=== PATIENT | male | born 1955 | race Two or more races ===

== ENCOUNTER 2022-12-19 06:30 | Inpatient (IN) | payer OTHER, MEDICAID ==
[2022-12-19] VITALS (16 sets, daily range): BP systolic 62–197; BP diastolic 40–136
[~2022-12-19] VITALS: Ht 167.6 cm; Wt 89.8 kg
--- NOTE | 2022-12-19 06:30 | NUR ---
[facility]IB[facility] FROM [facility] WITH [facility]/O ALOC, PT WAS FOUND UNRESPONSIVE, WITH LOW BP AND LABORED RESPIRATIONS. PT WITH H/O SEIZURES, NO SZ ACTIVITY WAS NOTED PMH : DOWNS SYNDROME, SEIZURES
--- NOTE | 2022-12-19 06:30 | NUR ---
PT MEE ALS. TAKEN TO BED 6
--- NOTE | 2022-12-19 06:32 | NUR ---
Dr. Prabhakar examining patient.
--- NOTE | 2022-12-19 06:36 | NUR ---
Respiratory Therapist at bedside for respiratory intervention.
--- NOTE | 2022-12-19 07:05 | NUR ---
PT TAKEN TO RADIOLOGY
--- NOTE | 2022-12-19 07:13 | NUR ---
PT RETURN FROM RADIOLOGY
--- NOTE | 2022-12-19 07:22 | NUR ---
Report and continuation of care received from KENDAL Travis.
--- NOTE | 2022-12-19 07:24 | NUR ---
67 y/o M BIBA from [facility] for ALOC. Staff noted patient hypoxic, hypotensive and unresponsive. Pt presents GCS 8, non-verbal baseline, G-tube and diapered. site monitor in place. Seizure precautions in place. PMH: down syndrome, hypothyroidism, seizure, COPD, arthritis, anemia Meds: albuterol, keppra, levothyroxine, lexapro, ativan PRN, quetiapine NKDA
--- NOTE | 2022-12-19 07:24 | NUR ---
Lab at bedside for blood draw attempt
--- NOTE | 2022-12-19 08:10 | NUR ---
SPO2 DROPPED TO 85%, PT PLACED ON 15NR. RT CALLED FOR ASSISTANCE. PT HYPOTENSIVE 65/38. DR PIZARRO AWARE AND AT BEDSIDE
[2022-12-19] MEDS ORDERED: levETIRAcetam 1,500 MG in NACL 0.9% 100 ML IV ONE (08:15)
[2022-12-19 08:18] LABS: HEMATOCRIT 30.4 % (36-52); MEAN CORPUSCULAR HEMOGLOBIN 35 pg (27-31); MEAN CORPUSCULAR HGB CONC 33 g/dL (33-37); MEAN CORPUSCULAR VOLUME 108.2 fL (80-94); PLATELET COUNT (AUTO) 230 K/uL (140-450); RED BLOOD CELL COUNT(AUTO) 2.81 MIL/uL (4.20-6.10); RED CELL DISTRIBUTION WIDTH 16.8 % (11.6-13.7); WHITE BLOOD COUNT (AUTO) 14.7 K/uL (4.8-10.8)
[2022-12-19] MEDS ORDERED: NACL 0.9% 2,000 ML IV ONE (08:30)
[2022-12-19] MEDS ORDERED: cefTRIAXone 2,000 MG in DEXTROSE 5% 100 ML IV ONE (08:30)
[2022-12-19] MEDS ORDERED: NOREPINEPHRINE 4 MG/4 ML VIAL IV ONE (08:30)
[2022-12-19] MEDS ORDERED: NOREPINEPHRINE 4 MG in DEXTROSE 5% 250 ML IV ONE (08:35)
--- NOTE | 2022-12-19 08:36 | NUR ---
RT at bedside
--- NOTE | 2022-12-19 08:40 | NUR ---
Unable to start Rocephin 2G; Levophed infusing w/ no central line placement in place
--- NOTE | 2022-12-19 08:43 | NUR ---
Imelda velasco in ED - 12/19/22 at 0845 by LETITIA PATIENT MOVED FROM BED 06 TO BED 05 AND PLACED ONTO SHOCK ABSORPTION FLOOR LAYER. REMAINS ON HUMIFIED HI-FLOW. SPO2 98%.
--- NOTE | 2022-12-19 08:43 | NUR ---
Imelda velasco in ED - 12/19/22 at 0941 by LETITIA PATIENT MOVED FROM BED 07 TO BED 05 AND PLACED ONTO TRANSPORTATION TECHNICIAN. REMAINS ON HUMIFIED HI-FLOW. SPO2 98%.
--- NOTE | 2022-12-19 08:43 | NUR ---
PATIENT MOVED FROM BED 06 TO BED 05 AND PLACED ONTO FRONT DESK MANAGER. REMAINS ON 9L HUMIDIFIED HI-FLOW. SPO2 98%.
[2022-12-19] MEDS ORDERED: ROCURONIUM 50 MG/5 ML VIAL IV ONE ×2 (08:45→12:00)
[2022-12-19] MEDS ORDERED: ETOMIDATE 20 MG/10 ML VIAL IVP ONE ×2 (08:45→12:00)
[2022-12-19 08:46] LABS: ALBUMIN 3.2 g/dL (3.4-5.0); ANION GAP 16.5 (8-16); ASPARTATE AMINOTRANSFERASE 34 U/L (15-37); CHLORIDE 98 mmol/L (98-107); CREATININE 2.2 mg/dL (0.6-1.3); GFR ARICAN-AMERICAN 38 mL/min (>90); GLUCOSE 91 mg/dL (74-106); POTASSIUM 4.5 mmol/L (3.5-5.1); SODIUM SERUM 136 mmol/L (136-145); TOTAL BILIRUBIN 0.6 mg/dL (0.0-1.0); UREA NITROGEN, BLOOD 37 mg/dL (7-18)
--- NOTE | 2022-12-19 08:46 | NUR ---
Imelda velasco in [facility] - 12/19/[address] Prabhakar at bedside for central line placement
[2022-12-19 08:47] LABS: SALICYLATE < 2.8 mg/dL (2.8-20.0)
--- NOTE | 2022-12-19 08:57 | NUR ---
Leann lawrence collected handed to Carol Ann, CPT.
[2022-12-19 08:59] LABS: LYMPHOCYTES % (MANUAL) 5 % (20-46); MONOCYTES % (MANUAL) 9 % (5-12)
--- NOTE | 2022-12-19 09:05 | NUR ---
ermd stated to increase dosage of levo until diastolic is increased to high 30-40s. map 65 at this time with diastolic 28.
--- NOTE | 2022-12-19 09:17 | NUR ---
# 16 FR Townsend catheter with 10 ml utilizing sterile technique. Immediate return of 700 ml clear/yellow urine noted. Bedside drainage bag placed below level of bladder. Urine sample collected and sent to lab. Pt tolerated procedure well.
[2022-12-19 09:18] LABS: ACETAMINOPHEN < 0.5 ug/ml (10-30)
--- NOTE | 2022-12-19 09:19 | NUR ---
Urine sample walked to lab handed to CPT Td. Log book filled.
[2022-12-19 09:44] LABS: APPEARANCE,URINE CLEAR (CLEAR); BILIRUBIN,URINE NEGATIVE (NEGATIVE); BLOOD, URINE NEGATIVE (NEGATIVE); COLOR,URINE YELLOW (YELLOW); LEUKOCYTE ESTERASE ,URINE NEGATIVE (NEGATIVE); NITRITE, URINE NEGATIVE (NEGATIVE); UGLUCOSE NEGATIVE (NEGATIVE)
[2022-12-19] MEDS ORDERED: INTUBATION KIT MC ONE (09:45)
[2022-12-19] MEDS ORDERED: MIDAZOLAM MDV 50 MG in NACL 0.9% 40 ML IV PRN ×2 (09:50→15:50)
--- NOTE | 2022-12-19 10:12 | NUR ---
RT at bedside
--- NOTE | 2022-12-19 10:15 | NUR ---
Sergio MAGUIRE RCP AND Marcelo WILCOX CALLED TO BEDSIDE; PREPPED PATIENT FOR INTUBATION
--- NOTE | 2022-12-19 10:15 | NUR ---
DR PIZARRO, RT AND PRIMARY NURSE AT BEDSIDE FOR INTUBATION
--- NOTE | 2022-12-19 10:20 | NUR ---
Dr. Prabhakar at bedside for intubation
--- NOTE | 2022-12-19 10:22 | NUR ---
USING A GLIDESCOPE PATIENT SUCCESSFULLY INTUBATED BY DR. PERI GARCIA WITH AN ENDOTRACHEAL TUBE #7.5 SECURED AT 23cm TEETH/GUM LINE WITH ANCHOR FAST CONFIRMATION VIA ETCO2 DETECTOR-COLOR CHANGE YELLOW AUSCULTATION TO ABDOMINAL REGION AND BILATERAL LUNG NICHOLS GOOD AERATION GOOD CHEST RISE CXR TO FOLLOW
[2022-12-19 10:24] LABS: BARBITURATE, URINE NEGATIVE ng/ml (NEG <=200)
--- NOTE | 2022-12-19 10:24 | NUR ---
RT and ERMD at bedside for intubation. 22 @ the lip. X-ray paged.
[2022-12-19 10:25] LABS: BENZODIAZEPINE, URINE POSITIVE ng/mL (NEG <=200); CANNABINOID, URINE NEGATIVE ng/mL (NEG <=50); COCAINE, URINE NEGATIVE ng/mL (NEG <=300); PHENCYCLIDINE SCREEN,URINE NEGATIVE ng/mL (NEG <=25)
[2022-12-19 10:26] LABS: OPIATE, URINE NEGATIVE ng/mL (NEG <=2000)
--- NOTE | 2022-12-19 10:27 | NUR ---
RAD at bedside for tube placement
--- NOTE | 2022-12-19 10:30 | NUR ---
CHEST XRAY TO ENDOTRACHEAL TUBE (ETT) PLACEMENT; -2.1 RIGHT MAINSTEM; REVIEWED BY DR. PADDY PIZARRO; ETT RETRACTION 5cm TO 18cm
--- NOTE | 2022-12-19 10:35 | NUR ---
CHEST XRAY FOR ENDOTRACHEAL TUBE PLACEMENT AT 18cm; +2.8cm ABOVE TAN; REVIEWED BY DR. PADDY PIZARRO
--- NOTE | 2022-12-19 10:35 | NUR ---
OG tube in placed; RAD called for xray
[2022-12-19] MEDS ORDERED: KEP500L GT (11:00)
[2022-12-19] MEDS ORDERED: ESCI20TA49 GT (11:00)
[2022-12-19] MEDS ORDERED: LEVO0.087 PEG (11:00)
[2022-12-19] MEDS ORDERED: ATI.5 GT (11:00)
[2022-12-19] MEDS ORDERED: ALBU2.5V NEB (11:00)
[2022-12-19] MEDS ORDERED: QUET300T26 GT (11:00)
--- NOTE | 2022-12-19 11:32 | NUR ---
LAB UNSUCCESSFUL ATTEMPT AT BLOOD DRAW, WILL HAVE ANOTHER CPT ATTEMPT
[2022-12-19] MEDS ORDERED: POTASSIUM CHLORIDE 10 MEQ TABER PO PRN (11:40)
[2022-12-19] MEDS ORDERED: HYDROcodone/APAP 7.5/325 MG 1 TAB PO PRN (11:40)
[2022-12-19] MEDS ORDERED: ACETAMINOPHEN 325 MG TAB PO PRN (11:40)
[2022-12-19] MEDS ORDERED: ONDANSETRON 4 MG/2 ML VIAL IVP PRN (11:40)
[2022-12-19] MEDS ORDERED: LORazepam 0.5 MG TAB GT PRN (11:40)
[2022-12-19] MEDS ORDERED: VANCOMYCIN PER PHARMACY MC PRN (11:45)
--- NOTE | 2022-12-19 11:46 | NUR ---
Lab called for blood draw. Td VAZQUEZ states will come now for draw
--- NOTE | 2022-12-19 11:52 | NUR ---
LAB AT BEDSIDE
--- NOTE | 2022-12-19 11:57 | NUR ---
Dr. Prabhakar at bedside for central line placement
[2022-12-19] MEDS ORDERED: VANCOMYCIN HCL 1.25 GM in DEXTROSE 5% 250 ML IV SCH (12:00)
--- NOTE | 2022-12-19 12:01 | NUR ---
700mL clear/yellow urine removed from Townsend catheter bag
[2022-12-19] MEDS ORDERED: cefTRIAXone 2,000 MG VIAL ONE (12:05)
[2022-12-19] MEDS ORDERED: CLINICAL MONITORING MC SCH (12:10)
[2022-12-19] MEDS: NACL 0.9% 1,000 ML IV SCH ×2 (12:31→21:40)
--- NOTE | 2022-12-19 13:00 | NUR ---
Patient will be admitted to care of Dr. De La Torre. Admited to ICU. Will go to room ICU-5. Belongings list completed. Report to KENDAL Aburto.
--- NOTE | 2022-12-19 13:00 | NUR ---
RECEIVED BEDSIDE REPORT FROM DUKE VALERIO RN, FOR CONTINUITY OF CARE. PT A/OX0, SEDATED ON VERSED. ETT TO VENT. JUNCTIONAL RHYTHM ON MONITOR. TLC TO RIJ INFUSING LEVOPHED AT 30 MCG/MIN, NS AT 100 ML/HR, AND VERSED AT 1 MG/HR. 20G IV TO RAC SALINE LOCKED AND 20G IV TO R HAND SALINE LOCK. G TUBE IN PLACE, CLAMPED. OGT IN PLACE, CLAMPED. F/C TO GRAVITY DRAINING CLEAR YELLOW URINE. SKIN INTACT. GENERALIZED WEAKNESS. STANDARD PRECAUTION. BED LOCKED AND IN LOWEST POSITION. HOB 30 DEGREES. Addendum: 12/19/22 at 1825 by Criselda Martinez RN A FIB ON MONITOR
[2022-12-19 13:14] LABS: PROTHROMBIN TIME 10.7 secs (10.8-13.4)
[2022-12-19] MEDS: NOREPINEPHRINE 16 MG in DEXTROSE 5% 250 ML IV PRN (13:30)
[2022-12-19] MEDS: VASOPRESSIN 20 UNITS in NACL 0.9% 250 ML IV SCH (14:00)
[2022-12-19] MEDS: PIPERACILLIN/TAZOBACTAM 3.375 GM in DEXTROSE 5% 50 ML IV SCH ×2 (14:27→20:59)
[2022-12-19 14:28] LABS: CHOL/HDL RATIO 1.9 (1-4.5); FREE T4 (FREE THYROXINE) 0.56 ng/dL (0.76-1.46); MAGNESIUM 1.7 mg/dL (1.8-2.4); THYROID STIMULATING HORMONE 13.4 uIU/mL (0.34-3.74)
[2022-12-19] MEDS ORDERED: PHENYLEPHRINE 10 MG in NACL 0.9% 250 ML IV PRN (15:05)
[2022-12-19] MEDS ORDERED: PHENYLEPHRINE 40 MG in NACL 0.9% 250 ML IV PRN (15:10)
--- NOTE | 2022-12-19 16:30 | NUR ---
REMOVED OG TUBE PER MD ORDERS. PT TOLERATED WELL.
--- NOTE | 2022-12-19 16:50 | NUR ---
PATIENT HAS BEEN SCREENED AND CATEGORIZED HIGH NUTRITION RISK. PATIENT WILL BE SEEN WITHIN 1-2 DAYS OF ADMISSION. REVIEWED BY WILLIAM HARRISON RD
[2022-12-19] MEDS: MIDAZOLAM MDV 50 MG in NACL 0.9% 40 ML IV PRN (19:05)
--- NOTE | 2022-12-19 19:20 | NUR ---
RECEIVED REPORT FROM SUZI EDMONDS FOR CONTINUITY OF CARE FOR THIS PT. PT IS LYING SUPINE WITH HIS EYES CLOSED. HIS MOUTH IS OPEN.HE'S INTUBATED AND IS ON A MECHANICAL VENTILATOR WITH SETTING AC/VC FIO2 60%, TV 400, RATE 16 AND PEEP 5. HE'S TOLERATING THE SETTINGS WELL. HE'S VERY PALE IN COLOR. HE'S AFEBRILE. HIS LACTIC ACID REMAINS ELEVATED OF 1600 TODAY IT'S 6.8. HE HAS SPECIMENS PENDING TO DETERMINE CAUSE OF HIS INFECTION. HE IS REPORTED HYPOTENSIVE AND IS ON LEVOPHED MAXED OUR AT 30MCG/MIN AND VASOPRESSIN IUNIT/MIN. HIS BLOOD PRESSURE IS WNL AT THIS TIME. HE 'S ALSO RECEIVING VERSED AT 6MG/HOUR FOR SEDATION. HE'S EASILY AROUSED. HE'S NPO AT THIS TIME.BUT, JE HAS A PEG TUBE IN PLACE. [facility] COLOR[facility].
--- NOTE | 2022-12-19 19:27 | NUR ---
ENDORSED BEDSIDE REPORT TO SHAHAB ELECTRONICS WORKER CLEANER AND PREPARER, FOR CONTINUITY OF CARE. VSS.
[2022-12-19] MEDS: DOCUSATE 100 MG/10 ML UDC GT SCH (20:59)
[2022-12-19] MEDS: levETIRAcetam 100 MG/ML ORASYR GT SCH (21:00)
--- NOTE | 2022-12-19 21:00 | NUR ---
PT'S BLOOD PRESSURE DROPPED TO 80/42 AND THEN IT WOULDN'T REGISTER A BLOOD PRESSURE AT ALL . CHANGED CUFF AND THE PRESSURE CAME IN 120/65
[2022-12-20] VITALS (33 sets, daily range): BP systolic 80–154; BP diastolic 49–91
--- NOTE | 2022-12-20 | NUR ---
PT FIO2 IS DOWN TO 45%.
[2022-12-20] MEDS: NOREPINEPHRINE 16 MG in DEXTROSE 5% 250 ML IV PRN ×3 (00:54→17:50)
[2022-12-20] MEDS: MIDAZOLAM MDV 50 MG in NACL 0.9% 40 ML IV PRN ×2 (04:22→15:39)
[2022-12-20] MEDS: PIPERACILLIN/TAZOBACTAM 3.375 GM in DEXTROSE 5% 50 ML IV SCH ×3 (04:45→21:56)
[2022-12-20 05:53] LABS: BASOPHILS # (AUTO) 0.1 K/uL (0.00-0.22); BASOPHILS % (AUTO) 0.3 % (0.0-2.0); EOSINOPHILS % (AUTO) 0.1 % (0.0-4.0); HEMATOCRIT 30.2 % (36-52); HEMOGLOBIN 9.9 g/dL (12.0-18.0); LYMPHOCYTES # (AUTO) 1.5 K/uL (2.0-11.5); LYMPHOCYTES % (AUTO) 6.1 % (20.5-51.1); MEAN CORPUSCULAR HEMOGLOBIN 35 pg (27-31); MEAN CORPUSCULAR HGB CONC 33 g/dL (33-37); MEAN CORPUSCULAR VOLUME 106.2 fL (80-94); MONOCYTES # (AUTO) 1.1 K/uL (0.8-1.0); MONOCYTES % (AUTO) 4.5 % (1.7-9.3); NEUTROPHILS # (AUTO) 22.5 K/uL (1.8-7.7); PLATELET COUNT (AUTO) 201 K/uL (140-450); RED BLOOD CELL COUNT(AUTO) 2.85 MIL/uL (4.20-6.10)
[2022-12-20 05:55] LABS: ANION GAP 13.9 (8-16); CARBON DIOXIDE 23.5 mmol/L (21-32); CREATININE 1.8 mg/dL (0.6-1.3); POTASSIUM 4.4 mmol/L (3.5-5.1)
[2022-12-20 06:13] LABS: MAGNESIUM 1.6 mg/dL (1.8-2.4)
[2022-12-20 06:25] LABS: WHITE BLOOD COUNT (AUTO) 25.2 K/uL (4.8-10.8)
[2022-12-20] MEDS: LEVOTHYROXINE 0.088 MG TAB PEG SCH (06:30)
--- NOTE | 2022-12-20 06:33 | NUR ---
LAB REPORTED A CRITICAL WBC VALUE OF 25.2. TEXT MSG SENT TO DR. MCCRACKEN.
--- NOTE | 2022-12-20 07:00 | NUR ---
RECEIVED PT ON VC400,F16,+5, 40%. VENT WHEELS ARE LOCKED, PLUGGED INTO RED OUTLET, AMBUBAG AT BEDSIDE, ALARMS ARE SET AND AUDIBLE. EQUAL CHEST RISE, COARSE BILATERAL BREATH SOUNDS, SATURATION 95%. AFTER SUCTIONING 97%. WILL CONTINUE TO MONITOR.
--- NOTE | 2022-12-20 07:15 | NUR ---
RECEIVED BEDSIDE REPORT FROM FACULTY DEAN SHAHAB EDMONDS. PT SEDATED. ETT TO VENT. AC VC FIO2 40% VT 400 RATE 16 PEEP 5. A FIB ON MONITOR. CENTRAL LINE TO RT IJ, RUNNING LEVO @ 30MCG/MIN, VASO @ 0.04 UNIT/MIN, VERSED @ 6 MG/H, NS @ 100 MLS/HR. G TUBE IN PLACE AND CLAMPED. NPO EXCEPTS MEDS. ALVAREZ IN PLACE TO GRAVITY, URINE CLEAR AND ABHI. BILT SOFT WRIST RESTRAINTS IN PLACE, NO S/S OF INJURY. GENERALIZED WEAKNESS, BEDREST. SKIN INTACT. HOB ELEVATED, BED TO LOWEST POSITION, CALL LIGHT WITHIN REACH, WILL CONTINUE TO MONITOR.
[2022-12-20] MEDS: ESCITALOPRAM 20 MG TAB GT SCH (08:18)
[2022-12-20] MEDS: DOCUSATE 100 MG/10 ML UDC GT SCH ×2 (08:18→21:56)
[2022-12-20] MEDS: QUEtiapine FUMARATE 100 MG TAB GT SCH (08:20)
[2022-12-20] MEDS: levETIRAcetam 100 MG/ML ORASYR GT SCH ×2 (08:20→21:56)
[2022-12-20] MEDS: PANTOPRAZOLE 40 MG INJ VIAL IVP SCH (08:20)
[2022-12-20] MEDS ORDERED: QUETIAPINE FUMARATE GT/PO SCH (09:00)
--- NOTE | 2022-12-20 10:10 | NUR ---
DR MCCRACKEN ROUNDYADIRA AT BEDSIDE. UPDATED PT INFORMATION.
[2022-12-20] MEDS: NACL 0.9% 1,000 ML IV SCH ×2 (10:19→19:21)
--- NOTE | 2022-12-20 10:52 | NUR ---
DR ROXANN LEGGETT AT BEDSIDE. UPDATED PT INFORMATION.
[2022-12-20] MEDS ORDERED: VANCOMYCIN HCL 1.25 GM in DEXTROSE 5% 250 ML IV SCH (12:00)
[2022-12-20] MEDS: MAG SULF 2000 MG/WATER PREMIX 50 ML IV PRN (12:44)
--- NOTE | 2022-12-20 13:46 | NUR ---
12/20/22 RD INITIAL ASSESSMENT COMPLETED PLEASE REFER TO NUTRITION ASSESSMENT UNDER CARE ACTIVITY FOR ESTIMATED NUTRITIONAL NEEDS. 1. CONTINUE NPO, PER MD. 2. WHEN MEDICALLY APPROPRIATE, AND TUBE FEEDING BEGINS, RECOMMEND JEVITY 1.2 @65 ML/HR, FWF 100 ML Q4H, WILL PROVIDE 1872 KCALS, 86 G PROTEIN, MEETING 89% ESTIMATED CALORIE AND 96% PROTEIN NEEDS 3. MONITOR GI AND LAB VALUES. 4. RD TO FOLLOW-UP 2-3 DAYS, HIGH RISK REVIEWED BY WILLIAM HARRISON RD
--- NOTE | 2022-12-20 15:55 | NUR ---
RECEIVED PHONE CALL FROM SNF/JEAN. UPDATED PT INFORMATION.
--- NOTE | 2022-12-20 16:05 | NUR ---
DR MATHEWS ROUNDING AT BEDSIDE. UPDATED PT INFORMATION.
[2022-12-20] MEDS: VASOPRESSIN 20 UNITS in NACL 0.9% 250 ML IV SCH ×2 (17:52→18:06)
--- NOTE | 2022-12-20 19:14 | NUR ---
ENDORSED TO INSIDE TECHNICAL SALES REPRESENTATIVE ALEXIS RN FOR CONTINUITY OF CARE. ALL QUESTION ANSWERED.
[2022-12-21] VITALS (33 sets, daily range): BP systolic 77–166; BP diastolic 44–126
[2022-12-21] MEDS: MIDAZOLAM MDV 50 MG in NACL 0.9% 40 ML IV PRN ×2 (02:33→15:57)
[2022-12-21] MEDS: NACL 0.9% 1,000 ML IV SCH ×2 (03:40→20:00)
[2022-12-21 04:49] LABS: BASOPHILS # (AUTO) 0.1 K/uL (0.00-0.22); BASOPHILS % (AUTO) 0.4 % (0.0-2.0); EOSINOPHILS # (AUTO) 0.1 K/uL (0-0.4); EOSINOPHILS % (AUTO) 0.7 % (0.0-4.0); HEMATOCRIT 25.4 % (36-52); HEMOGLOBIN 8.5 g/dL (12.0-18.0); LYMPHOCYTES # (AUTO) 0.9 K/uL (2.0-11.5); MEAN CORPUSCULAR HEMOGLOBIN 35 pg (27-31); MEAN CORPUSCULAR HGB CONC 33 g/dL (33-37); MEAN CORPUSCULAR VOLUME 105.8 fL (80-94); MONOCYTES # (AUTO) 0.4 K/uL (0.8-1.0); MONOCYTES % (AUTO) 3.1 % (1.7-9.3); NEUTROPHILS # (AUTO) 12.4 K/uL (1.8-7.7); PLATELET COUNT (AUTO) 147 K/uL (140-450); RED CELL DISTRIBUTION WIDTH 16.9 % (11.6-13.7); WHITE BLOOD COUNT (AUTO) 13.9 K/uL (4.8-10.8)
[2022-12-21] MEDS: PIPERACILLIN/TAZOBACTAM 3.375 GM in DEXTROSE 5% 50 ML IV SCH ×3 (05:24→21:00)
[2022-12-21 06:30] LABS: MAGNESIUM 1.7 mg/dL (1.8-2.4); PHOSPHORUS 1.3 mg/dL (2.5-4.9)
[2022-12-21] MEDS: LEVOTHYROXINE 0.088 MG TAB PEG SCH (06:30)
[2022-12-21 06:50] LABS: ANION GAP 10.3 (8-16); CARBON DIOXIDE 25.4 mmol/L (21-32); POTASSIUM 3.7 mmol/L (3.5-5.1)
[2022-12-21 07:04] LABS: LYMPHOCYTES % (AUTO) 6.7 % (20.5-51.1); NEUTROPHILS % (AUTO) 89.1 % (42.2-75.2)
--- NOTE | 2022-12-21 07:15 | NUR ---
RECEIVED BEDSIDE REPORT FROM STONEWORK SUPERVISOR ALEXIS RN. PT SEDATED. ETT TO VENT. AC VC FIO2 28% VT 400 RATE 16 PEEP 5. SR ON MONITOR. CENTRAL LINE TO RT IJ, RUNNING LEVO @ 14 MCG/MIN, VASO @ 0.01 UNIT/MIN, VERSED @ 4 MG/H, NS @ 100 MLS/HR. G TUBE IN PLACE, RUNNIGN JEVITY @ 65 MLS/H, FWF 100 ML Q4H. ALVAREZ IN PLACE TO GRAVITY, URINE CLEAR AND YELLOW. BILT SOFT WRIST RESTRAINTS IN PLACE, NO S/S OF INJURY. GENERALIZED WEAKNESS, BEDREST. SKIN INTACT. HOB ELEVATED, BED TO LOWEST POSITION, CALL LIGHT WITHIN REACH, WILL CONTINUE TO MONITOR.
--- NOTE | 2022-12-21 07:21 | NUR ---
PT WAS STABLE OVERNIGHT. FIO2 REQUIREMENTS DOWN TO 28%. LEVO REQUIREMENTS IS 18 AND VASOPRESSIN IS 0.01 UNITS/HR. VERSED AT 4. NO SKIN BREAKDOWN NOTED. MODERATE SECRETIONS NOTED
[2022-12-21] MEDS: MAG SULF 2000 MG/WATER PREMIX 50 ML IV PRN (07:40)
[2022-12-21] MEDS: levETIRAcetam 100 MG/ML ORASYR GT SCH ×2 (08:31→21:00)
[2022-12-21] MEDS: ESCITALOPRAM 20 MG TAB GT SCH (08:31)
[2022-12-21] MEDS: DOCUSATE 100 MG/10 ML UDC GT SCH ×2 (08:31→21:00)
[2022-12-21] MEDS: QUEtiapine FUMARATE 100 MG TAB GT SCH (08:31)
[2022-12-21] MEDS: PANTOPRAZOLE 40 MG INJ VIAL IVP SCH (08:32)
[2022-12-21] MEDS ORDERED: CLINICAL MONITORING MC PRN (09:18)
--- NOTE | 2022-12-21 10:30 | NUR ---
DR MCCRACKEN ROUNDYADIRA AT BEDSIDE. UPDATED PT INFORMATION.
--- NOTE | 2022-12-21 10:30 | NUR ---
CXR FOR ENDOTRACHEAL TUBE PLACEMENT; -2.1 RIGHT MAINSTEM; REVIEWED BT DR. PADDY GARCIA; RETRACTED ETT 5 cm TO 18cm Addendum: 12/21/22 at 1730 by Ryan Stout RT WRONG DATE
[2022-12-21] MEDS ORDERED: POTASSIUM PHOSPHATE 15 MM in NACL 0.9% 250 ML IV ONE (10:35)
[2022-12-21] MEDS ORDERED: SODIUM PHOSPHATE 15 MMOLE in NACL 0.9% 250 ML IV SCH (11:30)
--- NOTE | 2022-12-21 12:10 | NUR ---
DR HACKETT ROUNDING AT BEDSIDE. UPDATED PT INFORMATION. DR HACKETT WANT TO FIND OUT FAMILY FOR DECISION MAKER. SOCIAL SERVICE REQUEST FOR SERVICE ORDER IN.
[2022-12-21] MEDS ORDERED: HYDROCORTISONE NA SUCC 100 MG/2 ML VIAL IV SCH (12:42)
[2022-12-21] MEDS: VANCOMYCIN HCL 1.25 GM in DEXTROSE 5% 250 ML IV SCH (12:49)
[2022-12-21] MEDS: NOREPINEPHRINE 16 MG in DEXTROSE 5% 250 ML IV PRN (15:18)
[2022-12-21] MEDS: VASOPRESSIN 20 UNITS in NACL 0.9% 250 ML IV SCH (15:20)
--- NOTE | 2022-12-21 16:25 | NUR ---
DR MATHEWS ROUNDING AT BEDSIDE. UPDATED PT INFORMATION.
[2022-12-21] MEDS: HYDROCORTISONE NA SUCC 100 MG/2 ML VIAL IV SCH (18:37)
--- NOTE | 2022-12-21 19:13 | NUR ---
ENDORSED TO EDUCATIONAL DIRECTOR SHAHAB RN FOR CONTINUITY OF CARE. ALL QUESTION ANSWERED.
--- NOTE | 2022-12-21 20:11 | NUR ---
RECEIVED REPORT FROM JENNY CAST RN FOR CONTINUITY OF CARE FOR THIS PATIENT. PT IS LYING SUPINE WITH HIS EYES CLOSED. NO REACTION WHEN NEURO ASSESSMENT PERFORMED. PT IS AT A RASS -3 ON VERSED 4MG,HE'S ALSO RECEIVING LEVOPHED FOR LOW BP AT 12MCG/MIN AND VASOPRESSIN 0.01U, HIS BP IS WNL AT THIS TIME. HIS IV ACCESS IS A RIGHT INTERNAL JUGULAR 3 LUMEN. PT IS ON THE VENT TO ETT WITH SETTINGS OF RIO2 28%, TV 400, RATE 26, AND PEEP5 HE'S TOLERATING THE SETTINGS WELL. HE'S SUCTIONED BOTH ENDOTRACHEALLY AND ORALLY FOR A MODERATE MOUTH OF CLEAR THICK SECRETION, AND ORAL CARE GIVEN. HE HAS PEG TUBE IN PLACE RECEIVING JEVITY TUBE FEEDING AT 65 CC/HR AND FREE WATER FLUSH. RESIDUAL O. TOAL BODY ASSESSMENT REVEALS SKIN INTACT SKIN COLOR IS PALE, WARM AND DRY. ALVAREZ CATH IN PLACE DRAINING YELLOW CLEAR URINE.
--- NOTE | 2022-12-21 21:40 | NUR ---
WBC IS DOWN TO 14.9 FROM 25.2 AND HIS PLATELET COUNT IS DOWN TO 147. HEPARIN WAS GIVEN.
[2022-12-22] VITALS (30 sets, daily range): BP systolic 92–129; BP diastolic 54–83
[2022-12-22] MEDS: NACL 0.9% 1,000 ML IV SCH ×3 (00:04→17:31)
[2022-12-22] MEDS: HYDROCORTISONE NA SUCC 100 MG/2 ML VIAL IV SCH ×4 (00:06→17:30)
--- NOTE | 2022-12-22 01:11 | NUR ---
ROM TP ALL 4 EXTREMITIES ABD RHW LEFT HAND IS SWOLLEN ID BAND REMOVE AND PLACED AT THE FOOT OF THE BED/ Addendum: 12/22/22 at 0118 by Agency Jared EDMONDS RN Amended: Links added.
[2022-12-22] MEDS: PIPERACILLIN/TAZOBACTAM 3.375 GM in DEXTROSE 5% 50 ML IV SCH ×3 (05:00→21:29)
[2022-12-22 05:22] LABS: BASOPHILS % (AUTO) 0.2 % (0.0-2.0); HEMATOCRIT 26.7 % (36-52); LYMPHOCYTES # (AUTO) 0.3 K/uL (2.0-11.5); LYMPHOCYTES % (AUTO) 2.4 % (20.5-51.1); MEAN CORPUSCULAR HEMOGLOBIN 36 pg (27-31); MEAN CORPUSCULAR HGB CONC 34 g/dL (33-37); MONOCYTES # (AUTO) 0.2 K/uL (0.8-1.0); MONOCYTES % (AUTO) 2.2 % (1.7-9.3); NEUTROPHILS # (AUTO) 10.2 K/uL (1.8-7.7); NEUTROPHILS % (AUTO) 95.2 % (42.2-75.2); PLATELET COUNT (AUTO) 135 K/uL (140-450); RED BLOOD CELL COUNT(AUTO) 2.54 MIL/uL (4.20-6.10); WHITE BLOOD COUNT (AUTO) 10.7 K/uL (4.8-10.8)
[2022-12-22 05:54] LABS: ANION GAP 11.1 (8-16); CARBON DIOXIDE 24.8 mmol/L (21-32); CREATININE 0.8 mg/dL (0.6-1.3); POTASSIUM 3.9 mmol/L (3.5-5.1)
--- NOTE | 2022-12-22 06:00 | NUR ---
PT HAD A LARGE AMT OF THICK LIGHT YELLOW SPUTUM ORALLY AND ENDOTRACH. SUCTIONED AND ORAL CARE GIVEN,
[2022-12-22 06:05] LABS: MAGNESIUM 1.9 mg/dL (1.8-2.4); PHOSPHORUS 2.4 mg/dL (2.5-4.9)
[2022-12-22] MEDS: LEVOTHYROXINE 0.088 MG TAB PEG SCH (06:18)
--- NOTE | 2022-12-22 07:15 | NUR ---
RECEIVED BEDSIDE REPORT FROM BREAKER LAYER SHAHAB EDMONDS. PT SEDATED. ETT TO VENT. AC VC FIO2 28% VT 400 RATE 16 PEEP 5. SR ON MONITOR. CENTRAL LINE TO RT IJ, RUNNING LEVO @ 10 MCG/MIN, VASO @ 0.01 UNIT/MIN, VERSED @ 3 MG/H, NS @ 100 MLS/HR. G TUBE IN PLACE, RUNNIGN JEVITY @ 65 MLS/H, FWF 100 ML Q4H. ALVAREZ IN PLACE TO GRAVITY, URINE CLEAR AND YELLOW. BILT SOFT WRIST RESTRAINTS IN PLACE, NO S/S OF INJURY. GENERALIZED WEAKNESS, BEDREST. SKIN INTACT. HOB ELEVATED, BED TO LOWEST POSITION, CALL LIGHT WITHIN REACH, WILL CONTINUE TO MONITOR.
--- NOTE | 2022-12-22 07:22 | NUR ---
REPORT GIVEN TO JENNY CAST RN FOR CONTINUITY OF CARE FOR THIS PATIENT.
--- NOTE | 2022-12-22 07:52 | NUR ---
RECEIVED ON A gifted2youAPE R860 VENTILATOR PLUGGED INTO RED OUTLET TOLERATING WELL WITHOUT ADVERSE REACTIONS NOTED TO AN ENDOTRACHEAL TUBE #7.5 SECURED AT 18cm TEETH/GUM LINE WITH AN ANCHOR FAST CUFF PRESSURE CHECKED NOTED AMBU BAG AT BEDSIDE SEDATED RESTING COMFORTABLY NO SOB NOTED EQUAL CHEST RISE GOOD AERATION THROUGHOUT BILATERAL LUNG NICHOLS AIRWAY PATENT
--- NOTE | 2022-12-22 09:00 | NUR ---
DR WATSON ROUNDING AT BEDSIDE. UPDATED PT INFORMATION.
[2022-12-22] MEDS: DOCUSATE 100 MG/10 ML UDC GT SCH ×2 (09:02→20:59)
[2022-12-22] MEDS: levETIRAcetam 100 MG/ML ORASYR GT SCH ×2 (09:02→21:00)
[2022-12-22] MEDS: PANTOPRAZOLE 40 MG INJ VIAL IVP SCH (09:03)
[2022-12-22] MEDS: ESCITALOPRAM 20 MG TAB GT SCH (09:03)
[2022-12-22] MEDS: QUEtiapine FUMARATE 100 MG TAB GT SCH (09:03)
--- NOTE | 2022-12-22 09:18 | NUR ---
PT. WITH LOW [place] SCALE AT MODERATE TO HIGH RISK, CONTINUE TO FOLLOW PRESSURE INJURY PREVENTION INTERVENTIONS. -POSITIONING: TURN AND REPOSITION PATIENT Q 2H OR SOONER USE PILLOWS TO KEEP BONY PROMINENCES FROM DIRECT CONTACT WITH SURFACES USE REPOSITIONING WEDGES TO PROVIDE 30-DEGREE ANGLE FOR SIDE LYING POSITIONS OFFLOADING OR FOAM DRESSING TO ALL TUBING TO PREVENT MEDICAL DEVICES RELATED PRESSURE INJURY -RE-EVALUATING AND MANAGING INCONTINENCE MONITOR SKIN CONDITION DURING POSITION CHANGE DO NOT MASSAGE REDNESS, BONY PROMINENCES FREQUENT CHADWICK-CARE AND PROVIDE BARRIER CREAMS PRN IF SOILING MOISTURE CONTROL BY OFFER BED LOWERY/URINAL /ABSORBENT PAD TO WICK AND HOLD MOISTURE KEEP SKIN DRY AND PROTECT FROM FRICTION -MANAGE FRICTION/SHEAR/MOBILITY KEEP HOB AT THE LOWEST LEVEL OF ELEVATION NO MORE THAN 30 DEGREE UNLESS OTHERWISE CONTRAINDICATED USE LIFT SHEET OR TRANSFER DEVICE TO MOVE PATIENT AND PREVENT LATERAL SHEER. PROTECT HEELS, ELBOWS BONY PROMINENCES WITH SKIN BERRIES OR FOAM DRESSING IF EXPOSED TO FRICTION OFFLOAD BILATERAL HEELS BY PLACING PILLOWS UNDER CALVES AT ALL TIMES, UNLESS OTHERWISE CONTRAINDICATED -PRESSURE REDISTRIBUTION SURFACE THERAPY TWILA ISOFLEX MATTRESS -NUTRITION: PLEASE FOLLOW RD RECOMMENDATIONS AND OFFER NUTRITION SUPPLEMENTS IF ORDERED. PLEASE CONTACT WOUND CARE NURSE FOR ANY QUESTION AND CHANGE OF WOUND CONDITION.
[2022-12-22] MEDS: MIDAZOLAM MDV 50 MG in NACL 0.9% 40 ML IV PRN (09:23)
--- NOTE | 2022-12-22 10:38 | NUR ---
SEDATED STABLE GOOD CHEST RISE ENDOTRACHEAL SUCTION FOR SMALL THIN YELLOW SECRETIONS AIRWAY PATENT
--- NOTE | 2022-12-22 11:10 | NUR ---
DC PLANNING ASSESSMENT COMPLETE SEE ASSESSMENT FOR DETAILS DC PLAN IS TENTATIVE ON PTS POC DECIDED [facility] Addendum: 12/22/22 at 1111 by Ava Hickey Amended: Links added. Addendum: 12/26/22 at 1647 by Ava Hickey OUTREACHED TO [facility] TO NO AVAIL. 915: OUTREACHED TO [facility], HOWEVER, UNSUCCESSFUL. LEFT MESSAGE REQUESTING A RETURN PHONE CALL. 1:00 OUTREACHED TO [facility] HOWEVER, UNSUCCESSFUL. 1:15 OUTREACHED TO [facility], SPOKE WITH CONSTRUCTION SKILLS TEACHER AND WAS TRANSFERRED TO POST DOCTORAL FELLOW, POST DOCTORAL FELLOW HOWEVER, DID NOT ANSWER. 1:25 OUTREACHED TO [facility] HOWEVER, NO ANSWER ON MAIN LINE. MESSAGE WAS LEFT REQUESTING A RETURN PHONE CALL. CONTACT INFO FOR SW, CM AND ICU STATION LEFT ON MESSAGE. Addendum: 12/26/22 at 1650 by Ava GARCIA SPOKE WITH JEAN AND INQUIRED ON ADDITIONAL CONTACT FOR [facility] WORKERGENO. PENA REPORTS NO ADDITIONAL PHONE NUMBER FOR NARESH.
[2022-12-22] MEDS: VANCOMYCIN HCL 1.25 GM in DEXTROSE 5% 250 ML IV SCH (13:06)
--- NOTE | 2022-12-22 13:28 | NUR ---
SEDATED RESTING WELL NO PULMONARY DISTRESS NOTED EQUAL CHEST RISE GOOD AERATION THROUGHOUT BILATERAL LUNG NICHOLS AIRWAY PATENT
--- NOTE | 2022-12-22 14:10 | NUR ---
DR HACKETT ROUNDING AT BEDSIDE. UPDATED PT INFORMATION. DR HACKETT WANT TO KEEP LEVO BELOW 6 MCG/MIN, VERSED 0.5 MG/H AND OFF TOMORROW.
--- NOTE | 2022-12-22 14:45 | NUR ---
RESTING WELL WITH NO SOB NOTED EQUAL CHEST RISE GOOD AERATION THROUGHOUT BILATERAL LUNG NICHOLS AIRWAY PATENT
--- NOTE | 2022-12-22 16:33 | NUR ---
DR ROSS ROUNDING AT BEDSIDE. UPDATED PT INFORMATION.
--- NOTE | 2022-12-22 17:28 | NUR ---
STABLE REMAINS SEDATED GOOD CHEST RISE AIRWAY PATENT NO SUCTIONING AT THIS TIME CAKE PRESS OPERATOR TO MONITOR
--- NOTE | 2022-12-22 18:13 | NUR ---
DR MATHEWS ROUNDING AT BEDSIDE. UPDATED PT INFORMATION.
--- NOTE | 2022-12-22 19:25 | NUR ---
RECEIVED PT. FROM DAY SHIFT RNISAIAH. PT. ON ETT TO VENT A/C VC RATE 16, FIO2 28%, TV 400, PEEP 5 AND 02 SAT 97%. PT. IS WELL SEDATED, BUT OPEN EYES AND MOVES EXTREMITIES IF CALLING HIS NAME OR WITH TACTILE STIMULI OR WHEN REPOSITIONING.BILATERAL LUNG SOUNDS DIMINISHED. EYES NON REACTIVE TO LIGHT AND ACCOMODATION. ON A LEADERSHIP COACH [employer]RIB/SR. IV ON THE RIGHT JUGULAR TRIPLE LUMEN CENTRAL LINE CATHETER, INFUSING VERSED DRIP AT 0.5 MG/HR, LEVOPHED DRIP AT 2 MCG/MIN. GT WITH JEVITY 1.2 FEEDING RUNNING 65 ML/HR TOLERATING WELL. ABDOMINAL SOUNDS NOTED HYPOACTIVE. ALVAREZ CATHETER PATENT AND INTACT, WITH CLEAR YELLOW COLOR URINE. PT. ON BILATERAL SOFT WRIST RESTRAINT FOR SAFETY. BOTH WRIST NO S/S OF POOR CIRCULATION AND NO S/S OF INJURY. SKIN INTACT. BEDLOCK AND BED PLACED TO THE LOWEST LIGHT. PROVIDED SAFE AND QUIET ENVIRONMENT. FREQUENT BEDSIDE CHECK. ABLE TO MAKE NEEDS KNOW. NO S/S OF PAIN NOTED. WILL CONT. TO MONITOR.
--- NOTE | 2022-12-22 19:26 | NUR ---
ENDORSED TO SUPERVISOR EDGING JC RN FOR CONTINUITY OF CARE. ALL QUESTION ANSWERED.
[2022-12-22] MEDS ORDERED: PIPERACILLIN/TAZOBACTAM 3.375 GM VIAL IV ONE (21:23)
[2022-12-23] VITALS (28 sets, daily range): BP systolic 83–118; BP diastolic 45–73
[2022-12-23] MEDS: HYDROCORTISONE NA SUCC 100 MG/2 ML VIAL IV SCH (00:28)
--- NOTE | 2022-12-23 04:30 | NUR ---
LAB CAME AND DRAWN BLOOD.
[2022-12-23 05:25] LABS: BASOPHILS % (AUTO) 0.1 % (0.0-2.0); HEMATOCRIT 26.3 % (36-52); HEMOGLOBIN 8.8 g/dL (12.0-18.0); LYMPHOCYTES # (AUTO) 0.4 K/uL (2.0-11.5); LYMPHOCYTES % (AUTO) 3.9 % (20.5-51.1); MEAN CORPUSCULAR HEMOGLOBIN 35 pg (27-31); MEAN CORPUSCULAR HGB CONC 33 g/dL (33-37); MONOCYTES # (AUTO) 0.3 K/uL (0.8-1.0); MONOCYTES % (AUTO) 3.3 % (1.7-9.3); NEUTROPHILS # (AUTO) 8.9 K/uL (1.8-7.7); NEUTROPHILS % (AUTO) 92.7 % (42.2-75.2); PLATELET COUNT (AUTO) 155 K/uL (140-450); RED BLOOD CELL COUNT(AUTO) 2.48 MIL/uL (4.20-6.10); RED CELL DISTRIBUTION WIDTH 16.4 % (11.6-13.7); WHITE BLOOD COUNT (AUTO) 9.6 K/uL (4.8-10.8)
[2022-12-23] MEDS: NACL 0.9% 1,000 ML IV SCH ×3 (05:40→23:30)
[2022-12-23] MEDS: MEROPENEM 1,000 MG in NACL 0.9% 50 ML IV SCH ×3 (05:45→20:55)
[2022-12-23] MEDS: LEVOTHYROXINE 0.088 MG TAB PEG SCH (05:48)
[2022-12-23] MEDS ORDERED: MEROPENEM 1,000 MG VIAL IV ONE (05:52)
[2022-12-23 06:38] LABS: ANION GAP 10.4 (8-16); CARBON DIOXIDE 26.2 mmol/L (21-32); CREATININE 0.8 mg/dL (0.6-1.3); POTASSIUM 3.6 mmol/L (3.5-5.1)
--- NOTE | 2022-12-23 07:11 | NUR ---
REPORT GIVEN TO ISAIAH STEPHEN FOR CONTINUITY OF CARE.
--- NOTE | 2022-12-23 07:15 | NUR ---
RECEIVED BEDSIDE REPORT FROM CASE MGR JC EDMONDS. PT SEDATED. ETT TO VENT. AC VC FIO2 28% VT 400 RATE 16 PEEP 5. SR ON MONITOR. CENTRAL LINE TO RT IJ, RUNNING LEVO @ 2 MCG/MIN, VERSED @ 0.5 MG/H, NS @ 100 MLS/HR, TKO @ 3MLS/H. G TUBE IN PLACE, RUNNIGN JEVITY @ 65 MLS/H, FWF 100 ML Q4H. ALVAREZ IN PLACE TO GRAVITY, URINE CLEAR AND YELLOW. BILT SOFT WRIST RESTRAINTS IN PLACE, NO S/S OF INJURY. GENERALIZED WEAKNESS, BEDREST. SKIN INTACT. HOB ELEVATED, BED TO LOWEST POSITION, CALL LIGHT WITHIN REACH, WILL CONTINUE TO MONITOR.
[2022-12-23 07:46] LABS: MAGNESIUM 1.8 mg/dL (1.8-2.4); PHOSPHORUS 1.3 mg/dL (2.5-4.9)
[2022-12-23] MEDS: PANTOPRAZOLE 40 MG INJ VIAL IVP SCH (08:10)
[2022-12-23] MEDS: ESCITALOPRAM 20 MG TAB GT SCH (08:11)
[2022-12-23] MEDS: DOCUSATE 100 MG/10 ML UDC GT SCH ×2 (08:11→20:55)
[2022-12-23] MEDS: QUEtiapine FUMARATE 100 MG TAB GT SCH (08:11)
[2022-12-23] MEDS: levETIRAcetam 100 MG/ML ORASYR GT SCH ×2 (08:11→20:55)
[2022-12-23] MEDS: ATORVASTATIN 20 MG TAB PO SCH (08:11)
[2022-12-23] MEDS: ASPIRIN 81 MG TAB.CHEW PO SCH (08:11)
--- NOTE | 2022-12-23 08:55 | NUR ---
RECEIVED PHONE CALL FROM SNF/OX[facility], UPDATED PT INFORMATION.
--- NOTE | 2022-12-23 09:15 | NUR ---
DR WATSON ROUNDING AT BEDSIDE. UPDATED PT INFORMATION.
[2022-12-23] MEDS: SODIUM PHOS / POTASSIUM PHOS 1 PKT PDR PO SCH ×2 (12:44→17:56)
[2022-12-23] MEDS: NOREPINEPHRINE 16 MG in DEXTROSE 5% 250 ML IV PRN ×2 (12:47→15:51)
--- NOTE | 2022-12-23 13:43 | NUR ---
BEDSIDE AND PLACED ON SBT CPAP 5 PS 10 AND FIO2 28%. ALARMS ON AND FUNCTIONING. NURSE AWARE. WILL CONTINUE TO MONITOR.
--- NOTE | 2022-12-23 13:43 | NUR ---
DR ROXANN LEGGETT AT BEDSIDE, UPDATED PT INFORMATION.
--- NOTE | 2022-12-23 15:45 | NUR ---
DC PLANN[age] YRS OLD MALE PATIENT WAS ADMITTED FROM [facility] WITH A DX OF PATIENT HAS A HX OF DOWN SYNDROME, HYPOTHYROIDISM, SEIZURE DISORDER ,COPD ARTHRITIS, ANEMIA AND G TUBE. PATIENT IN ICU INTUBATED SEDATED ON PROPOFOL, VERSED DRIP. CONTINUE IV ABX VANCOMYCIN AND ZOSYN. CALLED JULIANE INFANT TODDLER LEAD TEACHER OF ABILITY PATHWAY STATED PATIENT HAS NO FAMILY AND HE IS CONSERVED WITH [facility] , [facility] NARESH SANTACRUZ .CALLED MR INFANTE AT [phone] LEFT A MESSAGE. Addendum: 12/31/22 at 1559 by Yanci Ortega RN DC PLANNING: PATIENT SELF EXTUBATED OFF DRIPS ON O2 3L/NC SATING 96% SPOKE WITH QING CHIU AT [facility] AND [facility] MR INFANTE STATED PATIENT CAN GO BACK TO [facility]. PATIENT NEEDS HOME O2 FAXED TO [facility] AWAITING FOR HOME O2 DELIVERY. PER QING WINN ONCE HOME O2 ARRIVED CAN ARRANGE TRANSPORT CM TO FOLLOW
--- NOTE | 2022-12-23 15:55 | NUR ---
LEVOPHED DRIP AT 1600, ABOUT 180 ML LEFT IN THE BAG, TRASHED. NEW BAG OF LEVOPHED ADMINISTERED.
--- NOTE | 2022-12-23 15:57 | NUR ---
2 H CPAP TRAIL PERFORMED. PT TOLERATE WELL. WILL CONTINUE DAILY CPAP TRAIL.
--- NOTE | 2022-12-23 16:56 | NUR ---
12/23/22 RD FOLLOW UP COMPLETED PLEASE REFER TO NUTRITION ASSESSMENT UNDER CARE ACTIVITY FOR ESTIMATED NUTRITIONAL NEEDS. 1. RECOMMENDS JEVITY 1.2 @70 ML/HR, FWF 100 ML Q4H, WILL PROVIDE 2016 KCALS, 93 G PROTEIN, 1955 ML FREE WATER, MEETING 94% ESTIMATED CALORIE AND 87% PROTEIN NEEDS 2. MONITOR GASTRIC RESIDUALS AND LAB VALUES. 3. RD TO FOLLOW-UP 3-5 DAYS, MODERATE RISK REVIEWED BY WILLIAM HARRISON RD
[2022-12-23] MEDS: MIDODRINE 5 MG TAB PO SCH ×2 (17:56→23:31)
--- NOTE | 2022-12-23 18:50 | NUR ---
DR MATHEWS ROUNDING AT BEDSIDE. UPDATED PT INFORMATION.
--- NOTE | 2022-12-23 19:14 | NUR ---
ENDORSED TO AIR CONDITIONING MANAGER SHAHAB RN FOR CONTINUITY OF CARE. ALL QUESTION ANSWERED.
--- NOTE | 2022-12-23 19:20 | NUR ---
RECEIVED REPORT FROM JENNY CAST FOR RN CONTINUITY OF CARE FOR THIS PATIENT. OK IS LYING SUPINE WITH HIS EYES CLOSED HIS PUPILS ARE EQUAL ND REACTIVE TO LIGHT, SIZE 3. HE HAS A COUGH AND IS ORALLY SUCTIONED FOLLOWED BY ORAL CARE . RT AR THE BEDSIDE SUCTIONED PT TRACHEALLY. PT CONTINUES ON LEVOPHED INFUSING THROUGH A RIJ CENTRAL LINE AND HIS BP IS 87/51 ON 4MCG/MIN , RECYCLED AND IR WENT UP TO 89/24. INCREASED LEVO TO 6MCG/MIN , BP 69/24.[id number]. AT 1934 BP106/65. INCREASE DOCUMENTED ON SPREADSHEET. PT REPOSITIONED AND BODY ASSESSMENT REVEALED SKIN INTACT. PT CONTINUES ON RESTRAINTS TO PREVENT INJURY TO SELF.
--- NOTE | 2022-12-23 20:00 | NUR ---
DR. WATSON TEXT BACK AND STATED IT'S OKAY TO INCREASE THE TUBE FEEDING TO 70 CC/H PERTHE [employer] SUGGESTION.
[2022-12-24] VITALS (31 sets, daily range): BP systolic 83–113; BP diastolic 46–71
--- NOTE | 2022-12-24 02:33 | NUR ---
PT ATTEMPTING TO PULL OUT ET TUBE HE'S WIDE AWAKE; VERSED INCREASED T0 2MG/HOUR.
[2022-12-24] MEDS: MEROPENEM 1,000 MG in NACL 0.9% 50 ML IV SCH ×3 (04:56→21:14)
[2022-12-24 05:25] LABS: BASOPHILS % (AUTO) 0.4 % (0.0-2.0); EOSINOPHILS % (AUTO) 0.6 % (0.0-4.0); HEMATOCRIT 26.7 % (36-52); LYMPHOCYTES # (AUTO) 1.3 K/uL (2.0-11.5); LYMPHOCYTES % (AUTO) 16.4 % (20.5-51.1); MEAN CORPUSCULAR HEMOGLOBIN 36 pg (27-31); MEAN CORPUSCULAR HGB CONC 34 g/dL (33-37); MEAN CORPUSCULAR VOLUME 106.3 fL (80-94); MONOCYTES # (AUTO) 0.7 K/uL (0.8-1.0); MONOCYTES % (AUTO) 9.5 % (1.7-9.3); NEUTROPHILS # (AUTO) 5.6 K/uL (1.8-7.7); NEUTROPHILS % (AUTO) 73.1 % (42.2-75.2); PLATELET COUNT (AUTO) 171 K/uL (140-450); RED BLOOD CELL COUNT(AUTO) 2.51 MIL/uL (4.20-6.10); RED CELL DISTRIBUTION WIDTH 16.6 % (11.6-13.7); WHITE BLOOD COUNT (AUTO) 7.6 K/uL (4.8-10.8)
[2022-12-24 05:54] LABS: CARBON DIOXIDE 28.2 mmol/L (21-32); CREATININE 0.8 mg/dL (0.6-1.3); POTASSIUM 3.2 mmol/L (3.5-5.1)
[2022-12-24] MEDS: MIDODRINE 5 MG TAB PO SCH ×3 (05:54→17:40)
[2022-12-24] MEDS: LEVOTHYROXINE 0.088 MG TAB PEG SCH (05:55)
[2022-12-24 06:08] LABS: MAGNESIUM 1.6 mg/dL (1.8-2.4); PHOSPHORUS 1.3 mg/dL (2.5-4.9)
--- NOTE | 2022-12-24 07:03 | NUR ---
NEW BOTTLE OF GLUCERNA HUNG.
--- NOTE | 2022-12-24 07:04 | NUR ---
REPORT GIVEN TO ELIE EDMONDS FOR CONTINUITY OF CARE
[2022-12-24] MEDS: MAG SULF 2000 MG/WATER PREMIX 50 ML IV PRN (07:30)
--- NOTE | 2022-12-24 07:45 | NUR ---
Received pt sedated. ETT to vent settings AC/VC TV 400 rate 16 PEEP 5 FiO2@28%. Sinus rhythm on monitor. G-tube intact and patent infusing Jevity 1.2@70ml/hr with FWF 100 Q4hr. Townsend catheter intact and draining to gravity. Central line triple lumen on right IJ intact and infusing NS@100ml/hr, Levophed@6mcg/min, and Versed@2mg/hr. Bilat soft wrist restraints in place with no signs of injury. Safety precautions in place.
[2022-12-24] MEDS ORDERED: POTASSIUM CHLORIDE 20% 40 MEQ/15 ML UDC GT SCH (08:22)
[2022-12-24] MEDS: levETIRAcetam 100 MG/ML ORASYR GT SCH ×2 (08:33→21:13)
[2022-12-24] MEDS: ESCITALOPRAM 20 MG TAB GT SCH (08:34)
[2022-12-24] MEDS: ASPIRIN 81 MG TAB.CHEW PO SCH (08:34)
[2022-12-24] MEDS: DOCUSATE 100 MG/10 ML UDC GT SCH ×2 (08:34→21:13)
[2022-12-24] MEDS: ATORVASTATIN 20 MG TAB PO SCH (08:35)
[2022-12-24] MEDS: QUEtiapine FUMARATE 100 MG TAB GT SCH (08:36)
[2022-12-24] MEDS: PANTOPRAZOLE 40 MG INJ VIAL IVP SCH (08:36)
[2022-12-24] MEDS: SODIUM PHOS / POTASSIUM PHOS 1 PKT PDR PO SCH ×3 (09:00→16:38)
[2022-12-24] MEDS ORDERED: SODIUM PHOS / POTASSIUM PHOS 1 PKT PDR GT SCH (09:00)
--- NOTE | 2022-12-24 09:18 | NUR ---
Seen and examined by Dr. Huber. No new orders.
--- NOTE | 2022-12-24 10:58 | NUR ---
RT placed pt on SBT. Dr. Pascual made rounds. Yanci pillowcase maker at bedside speaking with Dr. Rosales. New order received for Precedex.
--- NOTE | 2022-12-24 10:58 | NUR ---
BEDSIDE AND PLACED PT ON SBT, CPAP 5 PS 10 AND FIO2 28%. ALARMS ON AND FUNCTIONING. WILL CONTINUE TO MONITOR.
--- NOTE | 2022-12-24 11:20 | NUR ---
CXR done at bedside.
[2022-12-24] MEDS: NACL 0.9% 1,000 ML IV SCH ×2 (11:40→21:15)
--- NOTE | 2022-12-24 12:58 | NUR ---
Pt tolerated SBT trial for 2 hours.
--- NOTE | 2022-12-24 12:58 | NUR ---
PT SUCCESSFULLY COMPLETED 2 HOUR SBT. NURSE AWARE.
[2022-12-24] MEDS: DEXMEDETOMIDINE HCL 400 MCG in NACL 0.9% 96 ML IV PRN (16:47)
--- NOTE | 2022-12-24 18:45 | NUR ---
RECEIVED ON A [employer]agesAPE R860 VENTILATOR PLUGGED INTO RED OUTLET TOLERATING WELL WITHOUT ADVERSE REACTIONS NOTED TO AN ENDOTRACHEAL TUBE #7.5 SECURED AT 18cm TEETH/GUM LINE WITH AN ANCHOR FAST CUFF PRESSURE CHECKED NOTED STABLE SEDATED RESTING COMFORTABLY NO DISTRESS NOTED EQUAL CHEST RISE GOOD AERATION THROUGHOUT BILATERAL LUNG NICHOLS AIRWAY PATENT
--- NOTE | 2022-12-24 18:59 | NUR ---
Seen and examined by Dr. Kumar. No new orders.
--- NOTE | 2022-12-24 19:00 | NUR ---
Reported intake and output to Dr. Huber and report pt with edema. Awaiting for orders.
--- NOTE | 2022-12-24 19:15 | NUR ---
Endorsed to shift leader nurse Marko for continuity of care.
--- NOTE | 2022-12-24 19:30 | NUR ---
RECEIVED PT ON CARESCAPE VENTILATOR. INTUBATED WITH 7.5 ETT 18cm @GUM LINE. NOTED SYMMETRICAL CHEST RISE AND BILATERAL BREATH SOUNDS. VENTILATOR PLUGGED INTO RED OUTLET WITH ALARMS SET AND AUDIBLE TO NURSES STATION. WILL CONTINUE TO MONITOR. VIEW DOC SPREADSHEET.
[2022-12-25] VITALS (30 sets, daily range): BP systolic 68–125; BP diastolic 42–67
[2022-12-25] MEDS: MIDODRINE 5 MG TAB PO SCH ×4 (00:21→20:08)
[2022-12-25] MEDS: MEROPENEM 1,000 MG in NACL 0.9% 50 ML IV SCH ×3 (05:00→21:00)
[2022-12-25] MEDS: NACL 0.9% 1,000 ML IV SCH (05:00)
[2022-12-25] MEDS ORDERED: DEXMEDETOMIDINE HCL 100 MCG/ML 2 ML VIAL IV ONE (05:54)
[2022-12-25] MEDS: LEVOTHYROXINE 0.088 MG TAB PEG SCH (06:26)
--- NOTE | 2022-12-25 07:15 | NUR ---
RECEIVED BEDSIDE REPORT FROM VACATION SALES ADVISOR ALEXIS RN. PT SEDATED. ETT TO VENT. AC VC FIO2 24% VT 400 RATE 16 PEEP 5. SR ON MONITOR. CENTRAL LINE TO RT IJ, RUNNING LEVO @ 6 MCG/MIN, PRECEDEX @ 0.3 MCG/KG/H, NS @ 100 MLS/HR, TKO NS@ 3 MLS/HR. G TUBE IN PLACE, RUNNING JEVITY @ 70 MLS/H, FWF 100 ML Q4H. ALVAREZ IN PLACE TO GRAVITY, URINE CLEAR AND YELLOW. BILT SOFT WRIST RESTRAINTS IN PLACE, NO S/S OF INJURY. GENERALIZED WEAKNESS, BEDREST. SKIN INTACT. HOB ELEVATED, BED TO LOWEST POSITION, CALL LIGHT WITHIN REACH, WILL CONTINUE TO MONITOR.
[2022-12-25 07:46] LABS: BASOPHILS % (AUTO) 0.3 % (0.0-2.0); EOSINOPHILS # (AUTO) 0.3 K/uL (0-0.4); EOSINOPHILS % (AUTO) 3.3 % (0.0-4.0); HEMATOCRIT 27.5 % (36-52); LYMPHOCYTES % (AUTO) 13.3 % (20.5-51.1); MEAN CORPUSCULAR HEMOGLOBIN 35 pg (27-31); MEAN CORPUSCULAR HGB CONC 33 g/dL (33-37); MEAN CORPUSCULAR VOLUME 107.5 fL (80-94); MONOCYTES # (AUTO) 0.9 K/uL (0.8-1.0); MONOCYTES % (AUTO) 12.4 % (1.7-9.3); NEUTROPHILS # (AUTO) 5.4 K/uL (1.8-7.7); NEUTROPHILS % (AUTO) 70.7 % (42.2-75.2); PLATELET COUNT (AUTO) 175 K/uL (140-450); RED BLOOD CELL COUNT(AUTO) 2.56 MIL/uL (4.20-6.10); WHITE BLOOD COUNT (AUTO) 7.6 K/uL (4.8-10.8)
[2022-12-25 07:59] LABS: ANION GAP 7.3 (8-16); CARBON DIOXIDE 31.5 mmol/L (21-32); CREATININE 0.8 mg/dL (0.6-1.3); POTASSIUM 3.8 mmol/L (3.5-5.1)
[2022-12-25 08:03] LABS: MAGNESIUM 1.7 mg/dL (1.8-2.4); PHOSPHORUS 2.2 mg/dL (2.5-4.9)
[2022-12-25] MEDS: PANTOPRAZOLE 40 MG INJ VIAL IVP SCH (08:09)
[2022-12-25] MEDS: DOCUSATE 100 MG/10 ML UDC GT SCH ×2 (08:09→21:00)
[2022-12-25] MEDS: levETIRAcetam 100 MG/ML ORASYR GT SCH ×2 (08:09→21:00)
[2022-12-25] MEDS: SODIUM PHOS / POTASSIUM PHOS 1 PKT PDR PO SCH ×2 (08:09→12:24)
[2022-12-25] MEDS: ATORVASTATIN 20 MG TAB PO SCH (08:10)
[2022-12-25] MEDS: ASPIRIN 81 MG TAB.CHEW PO SCH (08:10)
[2022-12-25] MEDS: ESCITALOPRAM 20 MG TAB GT SCH (08:10)
[2022-12-25] MEDS: QUEtiapine FUMARATE 100 MG TAB GT SCH (08:13)
[2022-12-25] MEDS: MAG SULF 2000 MG/WATER PREMIX 50 ML IV PRN (08:14)
--- NOTE | 2022-12-25 10:45 | NUR ---
DR IVÁN LEGGETT AT BEDSIDE. UPDATED PT INFORMATION. ORDERED NEPHRO CONSULT.
--- NOTE | 2022-12-25 12:03 | NUR ---
RECEIVED PHONE CALL FROM SNF/OX[facility], UPDATED PT INFORMATION.
--- NOTE | 2022-12-25 12:35 | NUR ---
DR ALEXANDER ROUNDING AT BEDSIDE. UPDATED PT INFORMATION, ORDERED DC IVF NS.
[2022-12-25] MEDS ORDERED: CALCIUM GLUC 1 GM/50 mL NS BAG 50 ML IV SCH (15:00)
--- NOTE | 2022-12-25 19:15 | NUR ---
ENDORSED TO PAYROLL BENEFITS CLERK ALEXIS RN FOR CONTINUITY OF CARE. ALL QUESTION ANSWERED.
[2022-12-26] VITALS (28 sets, daily range): BP systolic 89–138; BP diastolic 49–76
[2022-12-26] MEDS: MEROPENEM 1,000 MG in NACL 0.9% 50 ML IV SCH ×3 (05:12→22:00)
[2022-12-26] MEDS: MIDODRINE 5 MG TAB PO SCH ×5 (05:12→23:48)
[2022-12-26] MEDS: LEVOTHYROXINE 0.088 MG TAB PEG SCH (06:30)
--- NOTE | 2022-12-26 07:27 | NUR ---
BEDSIDE REPORT RECEIVED FROM ALEXIS RN, ALL CARES ASSUMED. PT INTUBATED AND SEDATED. ALVAREZ CATHETER TO GRAVITY. CENTRAL LINE TO RIGHT NECK INFUSING LEVOPHED AND PRECEDEX PER TITRATION PROTOCOL. PT AWAKE MOVING HEAD SIDE TO SIDE. BED IN LOW AND LOCKED POSITION.
--- NOTE | 2022-12-26 08:50 | NUR ---
0725 STARTED PT OFF ON SIMV-VC. 400,F16, +03/18. SWITCHED TO CPAP 08/13. VOLUMES WERE BETWEEN 550-700. BLOOD PRESSURE WAS STABLE, RSBI WAS 21. UNABLE TO FOLLOW COMMANDS DUE TO MENTAL STATUS. CPAP LASTED 90MIN BEFORE SWITCHING BACK TO FULL VENT SUPPORT. WILL CONTINUE TO MONITOR.
[2022-12-26] MEDS: ESCITALOPRAM 20 MG TAB GT SCH (09:15)
[2022-12-26] MEDS: QUEtiapine FUMARATE 100 MG TAB GT SCH (09:15)
[2022-12-26] MEDS: ATORVASTATIN 20 MG TAB PO SCH (09:16)
[2022-12-26] MEDS: DOCUSATE 100 MG/10 ML UDC GT SCH ×2 (09:16→21:09)
[2022-12-26] MEDS: levETIRAcetam 100 MG/ML ORASYR GT SCH ×2 (09:16→21:09)
[2022-12-26] MEDS: PANTOPRAZOLE 40 MG INJ VIAL IVP SCH (09:16)
[2022-12-26] MEDS: ASPIRIN 81 MG TAB.CHEW PO SCH (09:16)
--- NOTE | 2022-12-26 10:00 | NUR ---
PT SELF EXTUBATED. NOTIFIED BY RN. BREATH SOUNDS WERE WILD EXPIRATORY WHEEZE AND SLIGHT STRIDER. BREATHING TREATMENT GIVEN AND PT CURRENTLY ON COOL AEROSOL THERAPY 40% FIO2 10L. RESPIRATORY RATE 16, HEART RATE 76, SATURATION 96%. PT NOT IN DISTRESS. WILL CONTINUE TO MONITOR.
[2022-12-26] MEDS ORDERED: ALBUTEROL 0.083% 2.5 MG/3 ML NEBU INH ONE (10:04)
--- NOTE | 2022-12-26 10:57 | NUR ---
AT APPROXIMATELY 0955, VENT ALARMED. THIS RN WENT TO PT, ETT WAS OUT, LAYING ON PT CHEST. PT OXYGEN SATURATION AT 85%. 15L NRB MASK PLACED ON PT. OXYGEN SATURATION AT 96% AFTER PLACING THE MASK. RT CALLED, NOTIFIED. PT RECEIVED BREATHING TREATMENT AND PLACED ON COOL AEROSOL MASK AT 10L 40% BY RT JADEN. PT VITAL SIGNS STABLE AT THIS TIME. ENTERED ORDERS FOR CHEST X-RAY AND ABG.
[2022-12-26] MEDS: DEXMEDETOMIDINE HCL 400 MCG in NACL 0.9% 96 ML IV PRN (13:40)
[2022-12-26] MEDS ORDERED: MAG SULF 2000 MG/WATER PREMIX 50 ML IV SCH (17:00)
--- NOTE | 2022-12-26 19:30 | NUR ---
RECEIVED PT. FROM DAY SHIFT NURSE KENDAL STEPHENSON. PER DAY SHIFT PT. EXTUBATED HIMSELF DURING THEIR SHIFT AT 10AM. PT. NOW IS ON HI FLOW 21L, 40%. WIDE AWAKE AND DOESN'T FOLLOW COMMANDS. IV TO RIGHT JUGULAR CENTRAL LINE INFSUING LEVOPHED DRIP 10 MCG/MIN, PRECEDEX 0.2 MCG/KG/HR. GT WITH JEVITY 1.2 RUNNING 70 ML/HR TOLERATING WELL. ALVAREZ CATHETER DRAINING WELL, INTACT AND WITH YELLOW URINE COLOR. SKIN INTACT. BEDLOCK AND BED PLACED IN THE LOWEST HEIGHT. PROVIDED SAFE AND QUIET ENVIRONMENT. NO S/S OF PAIN AT THIS TIME. WILL CONT.TO MONITOR.
--- NOTE | 2022-12-26 20:46 | NUR ---
MADE ROUNDS AND CHECKED PT. NO NEW ORDER MADE.
--- NOTE | 2022-12-26 23:00 | NUR ---
2300 PATIENT ON HI FLOW. LOWERED FIO2 TO 35% AND LITER FLOW TO 15. PATS SATS 99%. NO SOB NOTED
[2022-12-27] VITALS (25 sets, daily range): BP systolic 90–157; BP diastolic 38–78
--- NOTE | 2022-12-27 01:31 | NUR ---
0130 lowered fio2 to 30% sats 98% lowered liter flow to 10 liters on hiflow
[2022-12-27] MEDS: DEXMEDETOMIDINE HCL 400 MCG in NACL 0.9% 96 ML IV PRN ×2 (02:37→22:55)
[2022-12-27] MEDS: NOREPINEPHRINE 16 MG in DEXTROSE 5% 250 ML IV PRN (04:45)
[2022-12-27 05:49] LABS: BASOPHILS % (AUTO) 0.6 % (0.0-2.0); EOSINOPHILS # (AUTO) 0.3 K/uL (0-0.4); EOSINOPHILS % (AUTO) 5.1 % (0.0-4.0); HEMATOCRIT 27.9 % (36-52); HEMOGLOBIN 9.2 g/dL (12.0-18.0); LYMPHOCYTES # (AUTO) 0.9 K/uL (2.0-11.5); LYMPHOCYTES % (AUTO) 16.5 % (20.5-51.1); MEAN CORPUSCULAR HEMOGLOBIN 35 pg (27-31); MEAN CORPUSCULAR HGB CONC 33 g/dL (33-37); MEAN CORPUSCULAR VOLUME 105.8 fL (80-94); MONOCYTES # (AUTO) 0.7 K/uL (0.8-1.0); MONOCYTES % (AUTO) 12.2 % (1.7-9.3); NEUTROPHILS # (AUTO) 3.5 K/uL (1.8-7.7); NEUTROPHILS % (AUTO) 65.6 % (42.2-75.2); PLATELET COUNT (AUTO) 204 K/uL (140-450); RED BLOOD CELL COUNT(AUTO) 2.64 MIL/uL (4.20-6.10); RED CELL DISTRIBUTION WIDTH 16.6 % (11.6-13.7); WHITE BLOOD COUNT (AUTO) 5.4 K/uL (4.8-10.8)
[2022-12-27] MEDS ORDERED: MEROPENEM 1,000 MG VIAL IV ONE (05:53)
[2022-12-27] MEDS: MEROPENEM 1,000 MG in NACL 0.9% 50 ML IV SCH ×3 (05:56→20:25)
[2022-12-27] MEDS: MIDODRINE 5 MG TAB PO SCH ×3 (05:59→17:20)
[2022-12-27] MEDS: LEVOTHYROXINE 0.088 MG TAB PEG SCH (05:59)
[2022-12-27 06:24] LABS: ANION GAP 7.6 (8-16); CARBON DIOXIDE 32.9 mmol/L (21-32); CREATININE 0.6 mg/dL (0.6-1.3); POTASSIUM 4.5 mmol/L (3.5-5.1)
--- NOTE | 2022-12-27 07:30 | NUR ---
RECEIVED PT REPORT FROM EMERGENCY VEHICLE DISPATCHER NURSE FOR CONTINUITY OF CARE. AOX0, APHASIC, DOES NOT FOLLOW COMMANDS. ON HI FLOW 10L, 30% WITH NO RESPIRATORY DISTRESS. O2 SATURATION AT 95%. IV TO RIGHT JUGULAR CENTRAL LINE INFUSING LEVOPHED DRIP 9 MCG/MIN, PRECEDEX 0.2 MCG/KG/HR. SKIN IS WARM, DRY, AND INTACT. GT WITH JEVITY 1.2 RUNNING 70 ML/HR TOLERATING WELL. NO RESIDUAL NOTED. ALVAREZ CATHETER DRAINING WELL, INTACT AND WITH YELLOW URINE COLOR. FLACC 0 PLAN OF CARE DISCUSSED SAFETY PRECAUTIONS IN PLACE. BEDLOCK AND BED PLACED IN THE LOWEST HEIGHT. WILL CONT.TO MONITOR.
--- NOTE | 2022-12-27 07:42 | NUR ---
REPORT GIVEN TO DAY SHIFT RNALEKSANDRA FOR CONTINUITY OF CARE.
[2022-12-27] MEDS: DOCUSATE 100 MG/10 ML UDC GT SCH ×2 (08:41→20:26)
[2022-12-27] MEDS: levETIRAcetam 100 MG/ML ORASYR GT SCH ×2 (08:42→20:26)
[2022-12-27] MEDS: QUEtiapine FUMARATE 100 MG TAB GT SCH (08:42)
[2022-12-27] MEDS: PANTOPRAZOLE 40 MG INJ VIAL IVP SCH (08:42)
[2022-12-27] MEDS: ESCITALOPRAM 20 MG TAB GT SCH (08:42)
[2022-12-27] MEDS: ASPIRIN 81 MG TAB.CHEW PO SCH (08:43)
[2022-12-27] MEDS: ATORVASTATIN 20 MG TAB PO SCH (08:43)
--- NOTE | 2022-12-27 08:45 | NUR ---
RT AT BEDSIDE. PATIENT TITRATED TO ROOM AIR BY RT.
--- NOTE | 2022-12-27 09:30 | NUR ---
ALL SCHEDULED MEDS GIVEN. PT IS STABLE. NO DISTRESS NOTED. WILL CONTINUE TO MONITOR.
--- NOTE | 2022-12-27 11:30 | NUR ---
CHANGED PATIENT'S PAD. HAD X1 BM. KEPT CLEAN AND DRY.
--- NOTE | 2022-12-27 15:30 | NUR ---
CHECKED ON PATIENT. PT IS STABLE. NO DISTRESS NOTED. WILL CONTINUE TO MONITOR.
[2022-12-27] MEDS ORDERED: MORPHINE SULFATE 2 MG/ML SYR IVP PRN (16:30)
--- NOTE | 2022-12-27 19:15 | NUR ---
Received report from EUGENIA Kebede HOSPITAL ADMISSIONS OFFICER. All questions answered.
--- NOTE | 2022-12-27 19:20 | NUR ---
ENDORSED TO BIGHT MAKER NURSE FOR CONTINUITY OF CARE. PT IS STABLE.
--- NOTE | 2022-12-27 20:00 | NUR ---
Initial assessment done, Please see complete Physical assessment in Flowsheet. Patient on Levophed gtts @ 6mcg/min & Precedex gtts @0.20mcg on RIJ TLC, avery to Asher.
--- NOTE | 2022-12-27 21:00 | NUR ---
Due medications Given, tolerated well. Will continue to monitor closely for any possible adverse reactions.
[2022-12-28] VITALS (10 sets, daily range): BP systolic 103–166; BP diastolic 51–104
--- NOTE | 2022-12-28 | NUR ---
Turn & reposition q2h for comfort. No pain or discomfort noted at this time. Will continue to monitor patient closely as ordered.
[2022-12-28] MEDS: MIDODRINE 5 MG TAB PO SCH ×5 (00:05→22:01)
[2022-12-28] MEDS: MEROPENEM 1,000 MG in NACL 0.9% 50 ML IV SCH ×3 (05:35→22:03)
[2022-12-28] MEDS: LEVOTHYROXINE 0.088 MG TAB PEG SCH (05:43)
--- NOTE | 2022-12-28 07:15 | NUR ---
RECEIVED BEDSIDE REPORT FOR CONTINUITY OF CARE. PT A/OX0, NONVERBAL. ROOM AIR SATURATION IS 94%. SR ON MONITOR. RIJ TLC IN PLACE INFUSING NS TKO. G TUBE IN PLACE TO TUBE FEEDING. BILATERAL WRIST RESTRAINTS IN PLACE FOR SAFETY AND PULLING AT LINES. HIB 30 DEGREES, BED LOCKED AND IN LOWEST POSITION. CONTACT PRECAUTION FOR MDRO IN SPUTUM.
--- NOTE | 2022-12-28 07:28 | NUR ---
Report given to JUDY Zhu TOOL FILER HAND who will assume care of pt. Patient on Precedex @0.2mcg, Levophed Off since Last night.
[2022-12-28] MEDS: DOCUSATE 100 MG/10 ML UDC GT SCH ×2 (08:19→22:00)
[2022-12-28] MEDS: QUEtiapine FUMARATE 100 MG TAB GT SCH (08:20)
[2022-12-28] MEDS: levETIRAcetam 100 MG/ML ORASYR GT SCH ×2 (08:20→22:01)
[2022-12-28] MEDS: ASPIRIN 81 MG TAB.CHEW PO SCH (08:20)
[2022-12-28] MEDS: PANTOPRAZOLE 40 MG INJ VIAL IVP SCH (08:21)
[2022-12-28] MEDS: ATORVASTATIN 20 MG TAB PO SCH (08:21)
[2022-12-28] MEDS: FUROSEMIDE 20 MG/2 ML VIAL IVP SCH (08:22)
[2022-12-28] MEDS: ESCITALOPRAM 20 MG TAB GT SCH (08:24)
--- NOTE | 2022-12-28 10:36 | NUR ---
PT TRANSFERRED TO ROOM 123A WITH ALL BELONGINGS
--- NOTE | 2022-12-28 16:31 | NUR ---
12/28/22 RD FOLLOW UP COMPLETED.PLEASE REFER TO NUTRITION ASSESSMENT UNDER CARE ACTIVITY FOR ESTIMATED NUTRITIONAL NEEDS. 1. CONTINUE WITH JEVITY 1.2 @70 ML/HR, FWF 100 ML Q4H. THIS WILL PROVIDE 1680 ML VOLUME, 2016 KCALS, & 93 G PROTEIN, MEETING 94% ESTIMATED CALORIE AND 87% PROTEIN NEEDS; ADEQUATE. 2. MONITOR GASTRIC RESIDUALS. 3. RD TO FOLLOW-UP 3-5 DAYS, MODERATE RISK THA FERNANDEZ RD
[2022-12-28 19:43] LABS: EOSINOPHILS # (AUTO) 0.2 K/uL (0-0.4); LYMPHOCYTES # (AUTO) 1.1 K/uL (2.0-11.5); MEAN CORPUSCULAR HGB CONC 34 g/dL (33-37); MONOCYTES # (AUTO) 0.5 K/uL (0.8-1.0)
[2022-12-28 19:44] LABS: EOSINOPHILS % (AUTO) 5.5 % (0.0-4.0); HEMATOCRIT 27.8 % (36-52); HEMOGLOBIN 9.3 g/dL (12.0-18.0); LYMPHOCYTES % (AUTO) 25.2 % (20.5-51.1); MEAN CORPUSCULAR HEMOGLOBIN 36 pg (27-31); MEAN CORPUSCULAR VOLUME 105.8 fL (80-94); MONOCYTES % (AUTO) 11.4 % (1.7-9.3); NEUTROPHILS # (AUTO) 2.6 K/uL (1.8-7.7); NEUTROPHILS % (AUTO) 56.9 % (42.2-75.2); PLATELET COUNT (AUTO) 208 K/uL (140-450); RED BLOOD CELL COUNT(AUTO) 2.63 MIL/uL (4.20-6.10); RED CELL DISTRIBUTION WIDTH 16.8 % (11.6-13.7); WHITE BLOOD COUNT (AUTO) 4.6 K/uL (4.8-10.8)
[2022-12-29] VITALS: BP 121/60
[2022-12-29 04:00] VITALS: BP 129/72
[2022-12-29] MEDS: MEROPENEM 1,000 MG in NACL 0.9% 50 ML IV SCH ×3 (04:58→21:53)
[2022-12-29] MEDS: MIDODRINE 5 MG TAB PO SCH ×3 (05:01→21:53)
[2022-12-29] MEDS: LEVOTHYROXINE 0.088 MG TAB PEG SCH (06:31)
[2022-12-29 06:43] LABS: ANION GAP 6.1 (8-16); CARBON DIOXIDE 34.8 mmol/L (21-32); CREATININE 0.6 mg/dL (0.6-1.3); POTASSIUM 3.9 mmol/L (3.5-5.1)
[2022-12-29 08:00] VITALS: BP 114/69
[2022-12-29] MEDS: PANTOPRAZOLE 40 MG INJ VIAL IVP SCH (08:39)
[2022-12-29] MEDS: levETIRAcetam 100 MG/ML ORASYR GT SCH ×2 (08:39→21:54)
[2022-12-29] MEDS: DOCUSATE 100 MG/10 ML UDC GT SCH ×2 (08:39→21:54)
[2022-12-29] MEDS: ESCITALOPRAM 20 MG TAB GT SCH (08:40)
[2022-12-29] MEDS: QUEtiapine FUMARATE 100 MG TAB GT SCH (08:40)
[2022-12-29] MEDS: FUROSEMIDE 20 MG/2 ML VIAL IVP SCH (08:40)
[2022-12-29] MEDS: ASPIRIN 81 MG TAB.CHEW PO SCH (08:40)
[2022-12-29] MEDS: ATORVASTATIN 20 MG TAB PO SCH (08:41)
[2022-12-29 12:00] VITALS: BP 107/48
[2022-12-29 16:00] VITALS: BP 104/52
--- NOTE | 2022-12-29 18:35 | NUR ---
Contacted [facility] and nursing [place], they verbalized pt. on restraints won't be accepted in the facility. Dr. Castillo, gave order to DC restraints and monitor pt. for now.
[2022-12-29 20:00] VITALS: BP 133/68
[2022-12-30] VITALS: BP 118/48
--- NOTE | 2022-12-30 02:02 | NUR ---
Pt pulled out RIJ ML. No bleeding. No access. Addendum: 12/30/22 at 0207 by Agency 03 KENDAL RN In attempt to give pt Morphine for relaxation pt was found to have dislodged RIJ ML catheter. Complete dose of morphine was wasted (1mg prior to leaving [facility] room and 1mg upon returning to [facility] room).
[2022-12-30] MEDS: MEROPENEM 1,000 MG in NACL 0.9% 50 ML IV SCH ×2 (05:00→13:00)
[2022-12-30] MEDS: LEVOTHYROXINE 0.088 MG TAB PEG SCH (06:47)
[2022-12-30] MEDS: MIDODRINE 5 MG TAB PO SCH ×3 (06:51→20:51)
[2022-12-30 08:00] VITALS: BP 140/99
[2022-12-30] MEDS: PANTOPRAZOLE 40 MG INJ VIAL IVP SCH (09:00)
[2022-12-30] MEDS: ESCITALOPRAM 20 MG TAB GT SCH (09:46)
[2022-12-30] MEDS: ATORVASTATIN 20 MG TAB PO SCH (09:47)
[2022-12-30] MEDS: ASPIRIN 81 MG TAB.CHEW PO SCH (09:47)
[2022-12-30] MEDS: QUEtiapine FUMARATE 100 MG TAB GT SCH (09:48)
[2022-12-30] MEDS: levETIRAcetam 100 MG/ML ORASYR GT SCH ×2 (09:48→20:51)
[2022-12-30] MEDS: DOCUSATE 100 MG/10 ML UDC GT SCH ×2 (09:48→20:51)
--- NOTE | 2022-12-30 10:55 | NUR ---
SPOKE WITH DR CHAUDHRY REGARDING PT PULLING IJ DURING SHRIMPER AND SEVERAL ATTEMPTED FAILS IN INSERTING A PERIPHERAL IV. PER MD, NO NEED FOR A PICC LINE AT TIME TIME UNLESS A CHANGE IN PTS STATUS DUE TO PT ANTICIPATED DISCHARGE 12/31/2022. PRIMARY RN NOTIFIED.
--- NOTE | 2022-12-30 12:49 | NUR ---
ADMINISTERED SCHEDULED MEDS, NO RESIDUAL NOTED. PT TOLERATING WELL.
[2022-12-30 16:00] VITALS: BP 100/47
--- NOTE | 2022-12-30 19:05 | NUR ---
ENDORSED PT TO WEATHERIZATION ADMINISTRATOR NURSE FOR CONTINUITY OF CARE. PT IN STABLE CONDITION.
--- NOTE | 2022-12-30 19:06 | NUR ---
RECEIVED PT FROM MORNING SHIFT NURSE. PT IS APHASIC AND BEDBOUND. PT IS ON 3L NC AND PT HAS G-TUBE OF JEVITY 1.2 RUNNING AT 70ML/HR WITH WATER FLUSH OF 100 EVERY 4HRS. PT HAS NO IV LINE AND ACCORDING TO THE MORNING NURSE, DR. CHAUDHRY IS AWARE OF IT. PT HAS ALVAREZ CATHETER. PT SKIN IS INTACT BUT THERE'S A REDNESS ON RIGHT IJ BECAUSE PT PULLED IT OUT AND DOCTOR IS ALSO AWARE OF IT. NO S/S OF RESPIRATORY DISTRESS NOTED. ALL SAFETY MEASURES IMPLEMENTED. BED IN LOW POSITION. BED WHEELS ON LOCKED AND CALL LIGHT WITHIN REACH.
--- NOTE | 2022-12-30 20:51 | NUR ---
ALL SACHEDULED AND PRESCRIBED MEDICATION WAS GIVEN TO PT PER MD ORDER. ALL SAFETY MEASURES IMPLEMENTED. BED IN LOW POSITION. BED WHEELS ON LOCKED AND CALL LIGHT WITHIN REACH.
--- NOTE | 2022-12-30 22:00 | NUR ---
WARM BLANKET WAS GIVEN TO PT. CLEANED PT'S BEDSIDE. ALL SAFETY MEASURES IMPLEMENTED. BED IN LOW POSITION. BED WHEELS ON LOCK AND CALL LIGHT WITHIN REACH.
[2022-12-31] VITALS: BP 112/59
--- NOTE | 2022-12-31 | NUR ---
PT IS SLEEPING. CHEST RISE AND FALL SYMMETRICALLY NOTED. RESPIRATORY IS EVEN AND UNLABORED. ALL SAFETY MEASURES IMPLEMENTED. BED IN LOW POSTION, BED WHEELS ON LOCK AND CALL LIGHT WITHIN REACH.
--- NOTE | 2022-12-31 02:00 | NUR ---
CHECKED THE PT, STILL SLEEPING. CHEST RISE AND FALL SYMMETRICALLY NOTED. RESPIRATION IS EVEN AND UNLABORED. ALL SAFETY MEASURES IMPLEMENTED. BED IN LOW POSITION, BED WHEELS ON LOCK AND CALL LIGHT WITHIN REACH.
--- NOTE | 2022-12-31 04:00 | NUR ---
PT IS SLEEPING. CHEST RISE AND FALL SYMMETRICALLY NOTED. RESPIRATION IS EVEN AND UNLABORED. ALL SAFETY MEASURES IMPLEMENTED. BED IN LOW POSITION, BED WHEELS ON LOCK AND CALL LIGHT WITHIN REACH.
[2022-12-31] MEDS: MIDODRINE 5 MG TAB PO SCH ×3 (04:51→20:12)
--- NOTE | 2022-12-31 04:51 | NUR ---
SCHEDULED AND PRESCRIBED MEDICATION WAS GIVEN TO PT PER MD ORDER. ALL SAFETY MEASURES IMPLEMENTED. BED IN LOW POSITION, BED WHEELS ON LOCK AND CALL LIGHT WITHIN REACH.
[2022-12-31] MEDS: LEVOTHYROXINE 0.088 MG TAB PEG SCH (05:41)
--- NOTE | 2022-12-31 07:21 | NUR ---
PT IS STABLE. ENDORSED PT TO THE MORNING SHIFT NURSE FOR CONTINUITY OF CARE.
--- NOTE | 2022-12-31 07:36 | NUR ---
GOT REPORT FROM THE NIGHT NURSE, PT AWAKE .RIGHT IJ IV LINE OUT, PT PULLED OUT AT ASSISTANT PLANT MANAGER. NOT BLEEDING [id number]
[2022-12-31 08:00] VITALS: BP 117/72
[2022-12-31] MEDS: DOCUSATE 100 MG/10 ML UDC GT SCH ×2 (08:32→20:11)
[2022-12-31] MEDS: levETIRAcetam 100 MG/ML ORASYR GT SCH ×2 (08:32→20:11)
[2022-12-31] MEDS: PANTOPRAZOLE 40 MG INJ VIAL IVP SCH ×2 (08:33→08:40)
[2022-12-31] MEDS: QUEtiapine FUMARATE 100 MG TAB GT SCH (08:33)
[2022-12-31] MEDS: ASPIRIN 81 MG TAB.CHEW PO SCH (08:34)
[2022-12-31] MEDS: ESCITALOPRAM 20 MG TAB GT SCH (08:34)
[2022-12-31] MEDS: ATORVASTATIN 20 MG TAB PO SCH (08:35)
--- NOTE | 2022-12-31 09:00 | NUR ---
PATIENT IS RESTING IN BED. NOT IN DISTRESS. PATIENT PULLED PICC AT NIGHT, REDNESS AND IRRITATION NOTED ON RIGHT IJ. CHECKED GT RESIDUAL, LESS THAN 200ML. PT RECEIVED ROUTINE MEDICATIONS. TOLERATED MED ADMINISTRATION WELL.
[2022-12-31] MEDS ORDERED: PRO5 PO (10:17)
--- NOTE | 2022-12-31 13:27 | NUR ---
PT ASLEEP IN BED. TOLERATED 1300 OFFAL BALER WELL. GASTRIC RESIDUAL <200ML.
[2022-12-31 15:41] VITALS: BP 110/62
--- NOTE | 2022-12-31 17:28 | NUR ---
GAVE REPORT TO THE LIZ IN THE [facility], AND SHE SAID THEY ARE GOING TO CALL THE UNIT SOON THE TRANSPORT ARRANGED SOON. DISCHARGE INSTRUCTION PRINTED AND COPY OF THE CHART. PT READY TO GO THE ALVAREZ CATH WILL BE DC'D WHEN THE TRANSPORT ARRIVES. [id number]
--- NOTE | 2022-12-31 19:05 | NUR ---
RECEIVED PT FROM MORNING SHIFT NURSE. PT IS APHASIC AND BEDBOUND. PT IS ON 3L NC AND PT HAS G-TUBE OF JEVITY 1.2 RUNNING AT 70ML/HR WITH WATER FLUSH OF 100 EVERY 4HRS. PT HAS NO IV LINE AND HAS ALVAREZ CATHETER. PT SKIN IS INTACT BUT THERE'S A REDNESS ON RIGHT NECK. NO S/S OF RESPIRATORY DISTRESS NOTED. PT WILL BE DISCHARGE AND WILL JUST WAIT FOR THE TRANSPORT. ALL SAFETY MEASURES IMPLEMENTED. BED IN LOW POSITION. BED WHEELS ON LOCKED AND CALL LIGHT WITHIN REACH.
--- NOTE | 2022-12-31 20:13 | NUR ---
ALL SCHEDULED AND PRESCRIBED MEDICATION WAS GIVEN TO PT PER MD ORDER. ALL SAFETY MEASURES IMPLEMENTED. BED IN LOW POSITION. BED WHEELS ON LOCKED AND CALL LIGHT WITHIN REACH.
--- NOTE | 2022-12-31 22:00 | NUR ---
CALLED [facility] AND ASKED FOR NURSE PENA IF TRANSPORT IS ALREADY READY. NURSE PENA TOLD ME THAT SHE WILL CALL BACK AT ME FOR THE INFORMATION ON TRANSFORATION. WILL WAIT FOR THE CALL.
--- NOTE | 2022-12-31 23:30 | NUR ---
RECEIVED A CALL FROM [facility] NAMED FIONA (FLOOR HELPER). SHE TOLD ME THAT THEY NEED FIRST TO DELIVER THE OXYGEN BEFORE SENDING THE PATIENT TO THEIR FACILITY AND IT WILL PROBABLY TOMORROW.
[2023-01-01] VITALS: BP 108/55
--- NOTE | 2023-01-01 02:00 | NUR ---
PT IS SLEEPING. CHEST RISE AND FALL SYMMETRICALLY NOTED. RESPIRATION IS EVEN AND UNLABORED. ALL SAFETY MEASURES IMPLEMENTED. BED IN LOW POSITION. BED WHEELS ON LOCKED AND CALL LIGHT WITHIN REACH.
--- NOTE | 2023-01-01 04:00 | NUR ---
MORNING CARE WAS DONE TO PT. CHANGED LINENS, GOWN AND CHUCKS. ALL SAFETY MEASURES IMPLEMENTED. BED IN LOW POSITION. BED WHEELS ON LOCKED AND CALL LIGHT WITHIN REACH.
[2023-01-01] MEDS: LEVOTHYROXINE 0.088 MG TAB PEG SCH (05:34)
[2023-01-01] MEDS: MIDODRINE 5 MG TAB PO SCH ×3 (05:34→21:43)
--- NOTE | 2023-01-01 07:12 | NUR ---
PT IS STABLE. ENDORSED PT TO THE MORNING SHIFT NURSE FOR CONTINUITY OF CARE.
[2023-01-01 08:00] VITALS: BP 126/60
[2023-01-01] MEDS: levETIRAcetam 100 MG/ML ORASYR GT SCH ×2 (09:06→21:43)
[2023-01-01] MEDS: DOCUSATE 100 MG/10 ML UDC GT SCH ×2 (09:06→21:43)
[2023-01-01] MEDS: ESCITALOPRAM 20 MG TAB GT SCH (09:08)
[2023-01-01] MEDS: PANTOPRAZOLE 40 MG INJ VIAL IVP SCH (09:09)
[2023-01-01] MEDS: QUEtiapine FUMARATE 100 MG TAB GT SCH (09:09)
[2023-01-01] MEDS: ASPIRIN 81 MG TAB.CHEW PO SCH (09:10)
[2023-01-01] MEDS: FUROSEMIDE 40 MG TAB PO SCH (09:10)
[2023-01-01] MEDS: ATORVASTATIN 20 MG TAB PO SCH (09:11)
--- NOTE | 2023-01-01 14:54 | NUR ---
CALLED [facility] FOR UPDATE ON DELIVERY OF HOME O2, WHICH IS STILL NOT DELIVERED. THEY STATED THEY WOULD PREFER TO WAIT FOR DELIVERY EVEN IF PATIENT CAN TOLERATE BEING ON ROOM AIR.
--- NOTE | 2023-01-01 15:46 | NUR ---
01/01/23 RD FOLLOW UP COMPLETED PLEASE REFER TO NUTRITION ASSESSMENT UNDER CARE ACTIVITY FOR ESTIMATED NUTRITIONAL NEEDS. 1. CONTINUE WITH JEVITY 1.2 @70 ML/HR, FWF 100 ML Q4H. THIS WILL PROVIDE 1680 ML VOLUME, 2016 KCALS, & 93 G PROTEIN, MEETING 94% ESTIMATED CALORIE AND 87% PROTEIN NEEDS; ADEQUATE. 2. MONITOR GASTRIC RESIDUALS AND LAB VALUES. 3. RD TO FOLLOW-UP 3-5 DAYS, MODERATE RISK REVIEWED BY WILLIAM HARRISON RD
[2023-01-01 16:00] VITALS: BP 102/74
--- NOTE | 2023-01-01 20:00 | NUR ---
ASSESSMENT COMPLETED PLAN OF CARE REVIEWED PT RESISTANT TO CARE ALVAREZ CATHETER PATENT CALLED [facility] FOR DISCHARGE NO ANSWER BRAIN WAVE TECHNICIAN PANEL FLOW MACHINE OPERATOR NOTIFIED AND PT WILL DISCHARGE IN AM WILL CONTINUE TO MONITOR AND ASSESS
--- NOTE | 2023-01-01 20:15 | NUR ---
HOME O2 DELIVERED AT THE BEDSIDE, CALLED [facility] #[phone], NO ANSWER, LEFT MESSAGE TO VOICEMAIL, LATASHA MACHADO MGR MADE AWARE, RESPONDED WILL DC TOMORROW AM, KENDAL SANCHEZ MADE AWARE.
[2023-01-02] VITALS: BP 108/64
[2023-01-02] MEDS: MIDODRINE 5 MG TAB PO SCH ×2 (05:06→13:00)
--- NOTE | 2023-01-02 06:23 | NUR ---
NO SIGNIFCANT CHANGES ALL NEEDS ANTICIPATED AND MET
[2023-01-02] MEDS: LEVOTHYROXINE 0.088 MG TAB PEG SCH (06:30)
--- NOTE | 2023-01-02 07:30 | NUR ---
RECEIVED REPORT FROM ASSET PROTECTION REPRESENTATIVE NURSE FOR CONTINUITY OF CARE, POC DISCUSSED. PT IS RESTING ON 2L NC, NO IV ACCESS. HOME O2 AT BEDSIDE, CALLED NARESH FROM [facility], NO ANSWER. DETAILED MESSAGED LEFT TO ARRANGE TRANSPORTATION. MD AWARE OF PTS ALVAREZ AND STATED HE WILL BE RETURNING WITH IT. ALL SAFETY MEASURES IN PLACE
[2023-01-02 08:00] VITALS: BP 127/83
[2023-01-02] MEDS: PANTOPRAZOLE 40 MG INJ VIAL IVP SCH ×2 (09:00→09:34)
[2023-01-02] MEDS: QUEtiapine FUMARATE 100 MG TAB GT SCH (09:33)
[2023-01-02] MEDS: ASPIRIN 81 MG TAB.CHEW PO SCH (09:33)
[2023-01-02] MEDS: ATORVASTATIN 20 MG TAB PO SCH (09:34)
[2023-01-02] MEDS: ESCITALOPRAM 20 MG TAB GT SCH (09:34)
[2023-01-02] MEDS: FUROSEMIDE 40 MG TAB PO SCH (09:34)
[2023-01-02] MEDS: levETIRAcetam 100 MG/ML ORASYR GT SCH (09:36)
[2023-01-02] MEDS: DOCUSATE 100 MG/10 ML UDC GT SCH (09:36)
--- NOTE | 2023-01-02 10:50 | NUR ---
SPOKE WITH IVAN FROM [facility] REGARDING PT RETURN. INFORMED HER THE O2 IS AT BEDSIDE AND READY TO GO, STATED SHE WILL SET UP THE TRANSPORTATION WITH [place] AROUND 1500
--- NOTE | 2023-01-02 12:06 | NUR ---
CALLED AND GAVE FULL REPORT TO ISAÍAS REGARDING PT RETURNING TO FACILITY AND HIS HOSPITAL STAY. ALL QUESTIONS HAVE BEEN ANSWERED.
--- NOTE | 2023-01-02 13:15 | NUR ---
TIFFANIE MIDODRINE NON ADMINISTERED DUE TO INCREASED BLOOD PRESSURE. SATING AT 95% ON ROOM AIR. NO S/S OF DISTRESS. PT HAS BEEN CLEANED AND READY FOR GENERAL HARDWARE SALESPERSON BACK TO FACILITY. ALL SAFETY MEASURES IN PLACE
--- NOTE | 2023-01-02 15:10 | NUR ---
[facility]. ALL BELONGINGS PICKED UP BY MACHINE LAY OUT WORKER AT 1322, ALL DISCHARGE PAPERWORK GIVEN TO TRANSPORT. REPORT ALREADY GIVEN AT 1206 TO ISAÍAS.
== END 2023-01-02 15:10 | DRG 870 ==
LOC: MED 06:30 → MTU 10:30 → MIC 10:30 → MTU 12-28 10:05
PROC: 5A1955Z Respiratory Ventilation, Greater than 96 Consecutive Hours (ICD-10-PCS; principal; 2022-12-19)
PROC: 02HV33Z Insertion of Infusion Device into Superior Vena Cava, Percutaneous Approach (ICD-10-PCS; 2022-12-19)
PROC: B548ZZA Ultrasonography of Superior Vena Cava, Guidance (ICD-10-PCS; 2022-12-19)
PROC: 0BH17EZ Insertion of Endotracheal Airway into Trachea, Via Natural or Artificial Opening (ICD-10-PCS; 2022-12-19)
PROC: 0T9B70Z Drainage of Bladder with Drainage Device, Via Natural or Artificial Opening (ICD-10-PCS; 2022-12-19)
PROC: 5A0945A Assistance with Respiratory Ventilation, 24-96 Consecutive Hours, High Flow/Velocity Cannula (ICD-10-PCS; 2022-12-26)
DX: A41.9 Sepsis, unspecified organism (principal); J69.0 Pneumonitis due to inhalation of food and vomit; R65.21 Severe sepsis with septic shock; J96.01 Acute respiratory failure with hypoxia; N17.0 Acute kidney failure with tubular necrosis; I50.43 Acute on chronic combined systolic (congestive) and diastolic (congestive) heart failure; J15.0 Pneumonia due to Klebsiella pneumoniae; E44.1 Mild protein-calorie malnutrition; J44.0 Chronic obstructive pulmonary disease with (acute) lower respiratory infection; N39.0 Urinary tract infection, site not specified; E83.51 Hypocalcemia; Z20.822 Contact with and (suspected) exposure to COVID-19; D64.9 Anemia, unspecified; R13.10 Dysphagia, unspecified; I11.0 Hypertensive heart disease with heart failure; G40.909 Epilepsy, unspecified, not intractable, without status epilepticus; E03.9 Hypothyroidism, unspecified; Q90.9 Down syndrome, unspecified; Z93.1 Gastrostomy status
CPT/HCPCS: 31500; 36415; 36556; 36600; 70450; 71045; 80048; 80053; 80202; 80305; 81003; 82140; 82150; 82306; 82330; 82803; 82948; 83036; 83605; 83690; 83735; 83880; 84100; 84439; 84443; 84484; 85025; 85610; 85730; 87040; 87070; 87081; 87086; 87205; 89220; 93005; 94002; 94003; 96361; 96365; 99291; 99292; C9113; G0480; J0610; J0696; J1644; J1720; J1940; J1953; J2185; J2250; J2270; J2543; J3370; J3475; J3490; J7030; J7060; J7613; Q0092

== ENCOUNTER 2023-03-04 15:14 | Inpatient (IN) | payer OTHER, MEDICAID ==
[~2023-03-04] VITALS: Ht 157.5 cm; Wt 90.7 kg
[~2023-03-04 15:14] MED LIST: ALBU2.5V NEB; ATI.5 GT; ESCI20TA49 GT; KEP500L GT; LEVO0.087 PEG; PRO5 PO; QUET300T26 GT
[2023-03-04 15:20] VITALS: BP 127/46
--- NOTE | 2023-03-04 15:24 | NUR ---
MEE ALS TO ER BED 9
[2023-03-04] MEDS ORDERED: cefTRIAXone 1,000 MG in DEXT 5% MINI-BAG PLUS 50 ML IV ONE (16:05)
[2023-03-04] MEDS ORDERED: NACL 0.9% 1,000 ML IV SCH (16:05)
[2023-03-04] MEDS ORDERED: cefTRIAXone 1,000 MG VIAL ONE (16:18)
[2023-03-04 17:02] LABS: BASOPHILS % (AUTO) 1.6 % (0.0-2.0); EOSINOPHILS # (AUTO) 0.1 K/uL (0-0.4); EOSINOPHILS % (AUTO) 5.1 % (0.0-4.0); HEMATOCRIT 33.1 % (36-52); HEMOGLOBIN 10.8 g/dL (12.0-18.0); LYMPHOCYTES # (AUTO) 1.3 K/uL (2.0-11.5); LYMPHOCYTES % (AUTO) 55.2 % (20.5-51.1); MEAN CORPUSCULAR HEMOGLOBIN 35 pg (27-31); MEAN CORPUSCULAR HGB CONC 33 g/dL (33-37); MEAN CORPUSCULAR VOLUME 106.9 fL (80-94); MONOCYTES # (AUTO) 0.4 K/uL (0.8-1.0); MONOCYTES % (AUTO) 18.6 % (1.7-9.3); NEUTROPHILS # (AUTO) 0.5 K/uL (1.8-7.7); NEUTROPHILS % (AUTO) 19.5 % (42.2-75.2); PLATELET COUNT (AUTO) 200 K/uL (140-450); RED CELL DISTRIBUTION WIDTH 18.3 % (11.6-13.7); WHITE BLOOD COUNT (AUTO) 2.4 K/uL (4.8-10.8)
[2023-03-04 17:09] LABS: APPEARANCE,URINE CLEAR (CLEAR); BILIRUBIN,URINE NEGATIVE (NEGATIVE); BLOOD, URINE NEGATIVE (NEGATIVE); COLOR,URINE YELLOW (YELLOW); LEUKOCYTE ESTERASE ,URINE NEGATIVE (NEGATIVE); NITRITE, URINE NEGATIVE (NEGATIVE); UGLUCOSE NEGATIVE (NEGATIVE)
[2023-03-04 17:23] LABS: ALBUMIN 2.9 g/dL (3.4-5.0); ANION GAP 8.5 (8-16); CARBON DIOXIDE 32.4 mmol/L (21-32); CREATININE 0.9 mg/dL (0.6-1.3); POTASSIUM 4.9 mmol/L (3.5-5.1); TOTAL BILIRUBIN 0.3 mg/dL (0.0-1.0)
--- NOTE | 2023-03-04 17:31 | NUR ---
LAB CALLED, PT. WITH POSITIVE FLU B. DR. CAROLINA NOTIFIED. PT.'S PRIMARY RN NOTIFIED
[2023-03-04] MEDS ORDERED: POTASSIUM CHLORIDE 10 MEQ TABER PO PRN (18:00)
[2023-03-04] MEDS ORDERED: ONDANSETRON 4 MG/2 ML VIAL IVP PRN (18:00)
[2023-03-04] MEDS ORDERED: DOCUSATE SODIUM 100 MG GELCAP PO PRN (18:00)
[2023-03-04] MEDS ORDERED: MORPHINE SULFATE 2 MG/ML SYR IVP PRN (18:00)
[2023-03-04] MEDS ORDERED: ZOLPIDEM 10 MG TAB PO PRN (18:00)
[2023-03-04] MEDS ORDERED: LORazepam 2 MG/ML VIAL IVP PRN (18:00)
[2023-03-04] MEDS ORDERED: ACETAMINOPHEN 325 MG TAB PO PRN (18:00)
[2023-03-04] MEDS ORDERED: ALBUTEROL 0.083% 2.5 MG/3 ML NEBU INH PRN (18:00)
[2023-03-04] MEDS ORDERED: MAG SULF 2000 MG/WATER PREMIX 50 ML IV PRN (18:00)
[2023-03-04] MEDS ORDERED: LEVETIRACETAM (18:12)
[2023-03-04] MEDS ORDERED: MIDO10TA PO (18:12)
[2023-03-04] MEDS ORDERED: QUET200T43 PO (18:12)
--- NOTE | 2023-03-04 18:14 | NUR ---
PT.'S BED ASSIGNMENT RECEIVED AND GIVEN TO PT.'S PRIMARY RN
--- NOTE | 2023-03-04 18:14 | NUR ---
awake in bed, non verbal, screams during procedures and calms down after wards. pulls back arms and legs when staff rendering care
--- NOTE | 2023-03-04 18:30 | NUR ---
Patient will be admitted to care of DR HOLBROOK. Admited to TELE. Will go to room 118. Belongings list completed. Report to MARIA EUGENIA EDMONDS.
[2023-03-04 18:32] LABS: FREE T4 (FREE THYROXINE) 0.71 ng/dL (0.76-1.46); THYROID STIMULATING HORMONE 3.98 uIU/mL (0.34-3.74)
--- NOTE | 2023-03-04 18:40 | NUR ---
RECEIVED REPORT FROM ER NURSE FOR CONTINUITY OF CARE. PT WAS STABLE UPON TRANSPORT TO ROOM 118. PT IS A&OX1, ON ROOM AIR, SKIN INTACT AND BEDBOUND. PT RESPONDS TO HIS NAME AND FOLLOWS YOU WITH HIS EYES SOMETIMES. PT HAS MOVEMENT OF ALL HIS EXTREMITIES. HE HAS A 22G IN HIS L WRIST THAT FLUSHES, AND SALINE LOCKED. PT HAS THREE SIDE RAILS UP AND PADS ON THE RAILS. ALL SAFETY MEASURES IN PLACE AND BED IN LOW POSITION. PATIENT MONITORING AND CARE CONTINUES.
--- NOTE | 2023-03-04 19:15 | NUR ---
ENDORSED PT TO MOTORCYCLE REPAIRER NURSE FOR CONTINUITY OF CARE. PT STABLE AT THIS TIME.
--- NOTE | 2023-03-04 19:16 | NUR ---
RECEIVED REPORT FROM MORNING NURSE FOR CONTINUITY OF CARE. PATIENT IS RESTING ON ROOM AIR AWAKE NON VERBAL. NO S/S OF RESPIRATORY DISTRESS. RESPIRATION EVEN UNLABORED. G_TUBE INTACT AND PATENTSKIN WARM AND DRY TO THE TOUCH. SAFETY PRECAUTIONS ARE IN PLACE. CALL LIGHT ON EASY REACH.
[2023-03-04] MEDS: MIDODRINE 5 MG TAB PO SCH (21:25)
[2023-03-04] MEDS: levETIRAcetam 100 MG/ML ORASYR GT SCH (21:25)
--- NOTE | 2023-03-04 21:25 | NUR ---
ADMINISTERED SCHEDULED MEDICATIONS VIA G-TUBE.
[2023-03-05] VITALS: BP 137/52
--- NOTE | 2023-03-05 00:05 | NUR ---
FIONA WINN CREAM TESTER IN [facility] CALLED, ALL QUESTIONS ANSWERED.
--- NOTE | 2023-03-05 00:15 | NUR ---
NOTIFIED DR HOLBROOK REGARDING G-TUBE FEEDING ORDER. WAITING FOR REPLY.
--- NOTE | 2023-03-05 01:15 | NUR ---
NO TUBE FEEDING ORDERS RECEIVE YET.
[2023-03-05 04:00] VITALS: BP 141/87
[2023-03-05] MEDS: MIDODRINE 5 MG TAB PO SCH (05:00)
[2023-03-05 06:50] LABS: BASOPHILS # (AUTO) 0.1 K/uL (0.00-0.22); BASOPHILS % (AUTO) 2.1 % (0.0-2.0); EOSINOPHILS # (AUTO) 0.2 K/uL (0-0.4); HEMATOCRIT 32.8 % (36-52); HEMOGLOBIN 10.8 g/dL (12.0-18.0); LYMPHOCYTES # (AUTO) 1.1 K/uL (2.0-11.5); MEAN CORPUSCULAR HEMOGLOBIN 35 pg (27-31); MEAN CORPUSCULAR HGB CONC 33 g/dL (33-37); MEAN CORPUSCULAR VOLUME 105.7 fL (80-94); MONOCYTES # (AUTO) 0.5 K/uL (0.8-1.0); MONOCYTES % (AUTO) 16.9 % (1.7-9.3); PLATELET COUNT (AUTO) 219 K/uL (140-450); RED BLOOD CELL COUNT(AUTO) 3.11 MIL/uL (4.20-6.10); RED CELL DISTRIBUTION WIDTH 18.3 % (11.6-13.7); WHITE BLOOD COUNT (AUTO) 2.9 K/uL (4.8-10.8)
[2023-03-05 06:53] LABS: ANION GAP 9.3 (8-16); CARBON DIOXIDE 32.9 mmol/L (21-32); CREATININE 0.8 mg/dL (0.6-1.3); POTASSIUM 4.2 mmol/L (3.5-5.1)
--- NOTE | 2023-03-05 07:17 | NUR ---
ENDORSED PATIENT TO MORNING NURSE FOR CONTINUITY OF CARE.
--- NOTE | 2023-03-05 07:18 | NUR ---
RECEIVED REPORT FROM NIGHTSHIFT NURSE. PT IS AWAKE, RESTING IN BED. AOX0, PT IS NONVERBAL. NO SIGNS OF DISTRESS. ON RM AIR. IV TO LEFT WRIST, CLEAN, INTACT AND PATENT. NO IVF RUNNING AT THIS TIME. WILL CONTINUE WITH CARE. BED IN LOWEST POSITION, 2 SIDE RAILS UP, CALL LIGHT WITHIN REACH.
[2023-03-05 08:00] VITALS: BP 99/45
[2023-03-05] MEDS: LEVOTHYROXINE 0.1 MG TAB PO SCH (08:19)
[2023-03-05] MEDS: levETIRAcetam 100 MG/ML ORASYR GT SCH ×2 (08:25→21:28)
--- NOTE | 2023-03-05 08:49 | NUR ---
PATIENT HAS BEEN SCREENED AND CATEGORIZED HIGH NUTRITION RISK. PATIENT WILL BE SEEN WITHIN 1-2 DAYS OF ADMISSION. 03/04/23-03/06/23 FNS REFERRAL RECEIVED FOR TUBE FEEDING ON 03/05/23. PATIENT WILL BE SEEN WITHIN 1-2 DAYS OF RECEIVING REFERRAL. REVIEWED BY WILLIAM HARRISON RD
[2023-03-05] MEDS: OSELTAMIVIR PHOSPHATE 75 MG CAP PO SCH ×2 (10:50→21:28)
[2023-03-05 12:00] VITALS: BP 97/67
--- NOTE | 2023-03-05 12:09 | NUR ---
DC PLANNING ASSESSMENT COMPLETE PLEASE REFER TO ASSESSMENT FOR ADDITIONAL DETAILS JEAN DA SILVA DC PLAN IS FOR PT TO RETURN TO ; [facility], WHEN MEDICALLY STABLE. JEAN DA SILVA [place] PROVIDES TRANSPORTATION AND IS REQUESTING FACILITY BE NOTIFIED EARLY SO THAT ARRANGEMENTS CAN BE MADE. Addendum: 03/05/23 at 1210 by Ava Hickey SS Amended: Links added. Addendum: 03/05/23 at 1212 by Ava Hickey SS OUTREACHED TO [facility] WORKER, NARESH SANTACRUZ, TO CONFIRM COLLAT INFO GATHERED, HOWEVER, NO ANSWER. MESSAGE LEFT REQUESTING A RETURN PHONE CALL.
--- NOTE | 2023-03-05 14:04 | NUR ---
03/05/23 RD INITIAL ASSESSMENT COMPLETED PLEASE REFER TO NUTRITION ASSESSMENT UNDER CARE ACTIVITY FOR ESTIMATED NUTRITIONAL NEEDS. 1. MONITOR NPO STATUS 2. WHEN/IF MEDICALLY APPROPRIATE, RECOMMEND JEVITY 1.2 @ 50 ML/HR TOLERATED -FWF: 150 ML Q6H -START TF AT 10 ML/HR AND INCREASE BY 10 ML Q6H TOLERATED. -AT GOAL RATE, PATIENT WILL RECEIVE 1200 ML VOLUME, 1440 KCAL, 66 GRAMS PROTEIN AND 1568 ML FW. THIS MEETS 100% OF PTS ESTIMATED NEEDS. 3. RD TO FOLLOW-UP 2-3 DAYS, HIGH RISK REVIEWED BY WILLIAM HARRISON RD
[2023-03-05 16:00] VITALS: BP 124/87
--- NOTE | 2023-03-05 19:20 | NUR ---
PATIENT IS CALM, RESTING COMFORTABLY IN BED. BREATHING REGULAR NON LABORED. NO IV ACCESS. BED IN LOW POSITION WITH BED WHEELS LOCKED. CALL LIGHT WITHIN REACH. FLACC 0.
[2023-03-05 20:00] VITALS: BP 136/49
--- NOTE | 2023-03-05 21:28 | NUR ---
ADMINISTERED SCHEDULED MEDS.
--- NOTE | 2023-03-05 22:20 | NUR ---
STARTED A NEW IV TO RIGHT UPPER ARM WITH GOOD RETURN OF BLOOD. TOLERATED WELL.
[2023-03-06] VITALS: BP 125/60
--- NOTE | 2023-03-06 00:26 | NUR ---
PATIENT IS AGITATED, MEDICATED.
--- NOTE | 2023-03-06 00:56 | NUR ---
GAVE REPORT TO THA EDMONDS FOR CONTINUITY OF CARE.
--- NOTE | 2023-03-06 01:05 | NUR ---
RECEIVED PATIENT FROM KOKO EDMONDS FOR CONTINUITY OF CARE. PT IS STABLE
[2023-03-06 04:00] VITALS: BP 137/65
--- NOTE | 2023-03-06 05:00 | NUR ---
INCREASED FEEDING TO 40 CC/HR. GOAL IS 50
[2023-03-06] MEDS: LEVOTHYROXINE 0.1 MG TAB PO SCH (06:09)
[2023-03-06 06:53] LABS: EOSINOPHILS # (AUTO) 0.2 K/uL (0-0.4); HEMATOCRIT 34.5 % (36-52); HEMOGLOBIN 11.4 g/dL (12.0-18.0); LYMPHOCYTES # (AUTO) 1.5 K/uL (2.0-11.5); LYMPHOCYTES % (AUTO) 38.4 % (20.5-51.1); MEAN CORPUSCULAR HEMOGLOBIN 35 pg (27-31); MEAN CORPUSCULAR HGB CONC 33 g/dL (33-37); MEAN CORPUSCULAR VOLUME 104.8 fL (80-94); MONOCYTES # (AUTO) 0.7 K/uL (0.8-1.0); MONOCYTES % (AUTO) 17.8 % (1.7-9.3); NEUTROPHILS # (AUTO) 1.5 K/uL (1.8-7.7); NEUTROPHILS % (AUTO) 37.8 % (42.2-75.2); PLATELET COUNT (AUTO) 150 K/uL (140-450); RED BLOOD CELL COUNT(AUTO) 3.29 MIL/uL (4.20-6.10); RED CELL DISTRIBUTION WIDTH 17.9 % (11.6-13.7); WHITE BLOOD COUNT (AUTO) 3.9 K/uL (4.8-10.8)
[2023-03-06 06:56] LABS: ANION GAP 10.6 (8-16); CARBON DIOXIDE 28.9 mmol/L (21-32); CREATININE 0.7 mg/dL (0.6-1.3); POTASSIUM 4.5 mmol/L (3.5-5.1)
--- NOTE | 2023-03-06 07:15 | NUR ---
RECEIVED REPORT FROM YOUTH COURT JUDGE FOR CONTINUITY OF CARE. INITIAL ASSESSMENT DONE. AWAKE, CONFUSED PER BASELINE. G-TUBE INTACT. IV ON LUCI, SALINE LOCK. NO S/S ANY DISTRESS OR DISCOMFORT. CALL LIGHT KEPT WITHIN REACH. WILL CONTINUE TO MONITOR.
[2023-03-06 08:00] VITALS: BP 116/65
[2023-03-06] MEDS ORDERED: LOSARTAN 25 MG TAB PO SCH (09:00)
[2023-03-06] MEDS: levETIRAcetam 100 MG/ML ORASYR GT SCH (09:19)
--- NOTE | 2023-03-06 09:19 | NUR ---
RESIDUAL CHECK. SCHEDULED MEDICATIONS GIVEN. TOLERATED WELL.
[2023-03-06] MEDS: OSELTAMIVIR PHOSPHATE 75 MG CAP PO SCH (09:20)
--- NOTE | 2023-03-06 09:48 | NUR ---
ROCEPHIN IV WAS GIVEN BY FIONA EDMONDS. TOLERATED WELL.
[2023-03-06] MEDS ORDERED: TAM75 PO (10:20)
[2023-03-06] MEDS ORDERED: LOSA25TA1 PO (10:20)
--- NOTE | 2023-03-06 11:32 | NUR ---
CALLED [facility] SPOKE TO FIONA AUGUST REGARDING PT DISCHARGE ORDER. TRANSPORTATION ARRANGED, LOG CHAIN FEEDER TIME 1330.
[2023-03-06 12:00] VITALS: BP 102/58
--- NOTE | 2023-03-06 12:10 | NUR ---
INFORMED BY WEB DEVELOPMENT INSTRUCTOR THAT PT HR FLUCTUATING FROM 44-50. SINUS ARRHYTHMIA. CLARIFIED DISCHARGE ORDER TO DR. HOLBROOK, STATED MONITOR FOR FEW HOURS, IF IMPROVES CONTINUE DISCHARGE, IF NOT HOLD DISCHARGE. CALLED [facility] CM SPOKE TO FIONA. PER FIONA, FACILITY TRANSPORTATION AVAILABLE UNTIL 4PM. AFTER 4PM SHE WILL ARRANGE AT [facility].
[2023-03-06 16:00] VITALS: BP 110/89
--- NOTE | 2023-03-06 19:00 | NUR ---
RECEIVED CALLED FROM DR. MATHEWS, WITH NEW ORDERS: D/C ROCEPHIN, FLUCONAZOLE, AZITHROMYCIN. ORDERS NOTED AND CARRIED OUT.
--- NOTE | 2023-03-06 19:10 | NUR ---
BEDSIDE REPORT GIVEN TO ROSELIA FOR CONTINUITY OF CARE. ENDORSED TO ROSELIA PT DISCHARGE BACK TO [facility], COLORIST DYER TIME [id number]. REMAINS STABLE.
--- NOTE | 2023-03-06 19:10 | NUR ---
RECEIVED PT FROM MORNING SHIFT NURSE. PT IS AOX0 AND BEDBOUND. PT IS ON ROOM AIR AND ON G-TUBE RUNNING WITH JEVITY 1.2 40ML/HR WITH WATER FLUSH OF 150ML EVERY 6 HRS. PT HAS IV ON RIGHT UPPER ARM SALINE LOCK AND PT SKIN IS INTACT. PT WILL BE DISCHARGED TONIGHT AND [facility] WILL VP SOFTWARE SUPPORT THE AT 8PM. ALL SAFETY MEASURES IMPLEMENTED. BED IN LOW POSITION, BED WHEELS ON LOCK AND CALL LIGHT WITHIN REACH.
--- NOTE | 2023-03-06 19:40 | NUR ---
PT WAS REQUIREMENTS MANAGER BY [facility] WITH [facility]. PT IS STABLE. PT HAS NO BELONGINGS. NO S/S OF RESPIRATORY DISTRESS NOTED.
== END 2023-03-06 19:40 | DRG 194 ==
LOC: MED 15:14 → MTU 17:59
PROVIDERS: ADMIT Family Medicine; ATTEND Family Medicine
DX: J10.1 Influenza due to other identified influenza virus with other respiratory manifestations (principal); I42.9 Cardiomyopathy, unspecified; I50.22 Chronic systolic (congestive) heart failure; J91.8 Pleural effusion in other conditions classified elsewhere; J98.11 Atelectasis; D72.819 Decreased white blood cell count, unspecified; R13.10 Dysphagia, unspecified; Q90.9 Down syndrome, unspecified; R00.1 Bradycardia, unspecified; J44.9 Chronic obstructive pulmonary disease, unspecified; E03.9 Hypothyroidism, unspecified; G40.909 Epilepsy, unspecified, not intractable, without status epilepticus; M19.90 Unspecified osteoarthritis, unspecified site; D64.9 Anemia, unspecified; Z20.822 Contact with and (suspected) exposure to COVID-19; Z93.1 Gastrostomy status
CPT/HCPCS: 36415; 71045; 80048; 80053; 81003; 83605; 83735; 83880; 84439; 84443; 84484; 85025; 87040; 87081; 87086; 93005; 96365; 99285; J0696; J2060; J3475; J7060; Q0092

== ENCOUNTER 2023-03-30 13:49 | Emergency (ER) | payer OTHER, MEDICAID ==
[~2023-03-30] VITALS: Ht 162.6 cm; Wt 81.6 kg
[~2023-03-30 13:49] MED LIST changes: +LOSA25TA1 PO; -PRO5 PO; +TAM75 PO
[2023-03-30 14:04] VITALS: BP 90/47; PULSE 54; RESP 18; TEMP 97.8; O2SAT 98
--- NOTE | 2023-03-30 14:46 | NUR ---
TO BED 7 VIA GURNEY, BY MEDICS
[2023-03-30 15:15] VITALS: O2SAT 98
[2023-03-30] MEDS ORDERED: NACL 0.9% 1,000 ML IV ONE (15:35)
--- NOTE | 2023-03-30 15:44 | NUR ---
xray at bedside
[2023-03-30 16:33] LABS: BASOPHILS % (AUTO) 0.6 % (0.0-2.0); EOSINOPHILS # (AUTO) 0.1 K/uL (0-0.4); EOSINOPHILS % (AUTO) 1.7 % (0.0-4.0); LYMPHOCYTES # (AUTO) 1.2 K/uL (2.0-11.5); LYMPHOCYTES % (AUTO) 16.4 % (20.5-51.1); MEAN CORPUSCULAR HEMOGLOBIN 36 pg (27-31); MEAN CORPUSCULAR HGB CONC 33 g/dL (33-37); MEAN CORPUSCULAR VOLUME 106.9 fL (80-94); MONOCYTES # (AUTO) 0.5 K/uL (0.8-1.0); MONOCYTES % (AUTO) 6.9 % (1.7-9.3); NEUTROPHILS # (AUTO) 5.4 K/uL (1.8-7.7); NEUTROPHILS % (AUTO) 74.4 % (42.2-75.2); PLATELET COUNT (AUTO) 179 K/uL (140-450); RED CELL DISTRIBUTION WIDTH 16.7 % (11.6-13.7); WHITE BLOOD COUNT (AUTO) 7.3 K/uL (4.8-10.8)
[2023-03-30 16:38] LABS: APPEARANCE,URINE CLEAR (CLEAR); BILIRUBIN,URINE NEGATIVE (NEGATIVE); BLOOD, URINE NEGATIVE (NEGATIVE); COLOR,URINE YELLOW (YELLOW); LEUKOCYTE ESTERASE ,URINE NEGATIVE (NEGATIVE); NITRITE, URINE NEGATIVE (NEGATIVE); UGLUCOSE NEGATIVE (NEGATIVE)
[2023-03-30 16:56] LABS: ALBUMIN 2.6 g/dL (3.4-5.0); ASPARTATE AMINOTRANSFERASE 29 U/L (15-37); CARBON DIOXIDE 31.3 mmol/L (21-32); CHLORIDE 101 mmol/L (98-107); CREATININE 1.1 mg/dL (0.6-1.3); GFR ARICAN-AMERICAN 85 mL/min (>90); GLUCOSE 86 mg/dL (74-106); POTASSIUM 4.3 mmol/L (3.5-5.1); SODIUM SERUM 137 mmol/L (136-145); TOTAL BILIRUBIN 0.3 mg/dL (0.0-1.0); UREA NITROGEN, BLOOD 32 mg/dL (7-18)
--- NOTE | 2023-03-30 17:41 | NUR ---
67YO M BIB AMBULANCE FROM [facility], C/O HYPOTENSION THIS AM. FACILITY CALLED, SPOKE TO JEAN, STATES BASELINE OF VS ARE USUALLY LOW, LOWEST 50/30'S O2 PROVIDED INTERMITTENTLY. IV RT HAND BY MEDICS, PT PLACED ON MONITOR, RAILS UP, SAFETY MAINTAINED. NAD.
[2023-03-30 18:35] VITALS: BP 100/40; PULSE 50; RESP 13; TEMP 97.8
[2023-03-30] MEDS ORDERED: MIDODRINE 5 MG TAB GT SCH (18:35)
[2023-03-30] MEDS ORDERED: CRUSHER, PILL MC ONE (18:48)
[2023-03-30 19:45] VITALS: O2SAT 98
--- NOTE | 2023-03-30 19:46 | NUR ---
spoke with Nikki tool storage attendant of facility [facility] [phone], got authroization to setup transport for pt with [facility] transport.
--- NOTE | 2023-03-30 20:00 | NUR ---
Patient discharged with v/s stable. Written and verbal after care instructions given and explained. Patient verbalized understanding. Ambulance Transport with to [facility]. All questions addressed prior to discharge. Advised to follow up with PMD.
--- NOTE | 2023-03-30 20:07 | NUR ---
derrick jorge from [facility] accepted transport for pt, and [facility] notified. [phone]. eta provided to derrick for transport .
--- NOTE | 2023-03-30 21:01 | NUR ---
[facility] HERE FOR TRANSPORT.
== END 2023-03-30 21:01 | disposition home or self-care (01) ==
LOC: MED 13:49
DX: I95.89 Other hypotension (principal); Z20.822 Contact with and (suspected) exposure to COVID-19; E03.9 Hypothyroidism, unspecified; Z86.69 Personal history of other diseases of the nervous system and sense organs; Z98.890 Other specified postprocedural states; Z79.899 Other long term (current) drug therapy
CPT/HCPCS: 36415; 71045; 80053; 81003; 83605; 84484; 85025; 87040; 87426; 93005; 96360; 99285; J7030

== ENCOUNTER 2023-04-20 14:57 | Emergency (ER) | payer OTHER, MEDICAID ==
[~2023-04-20] VITALS: Ht 152.4 cm; Wt 83.9 kg
[2023-04-20] MEDS ORDERED: NACL 0.9% 1,000 ML IV ONE (15:05)
--- NOTE | 2023-04-20 15:17 | NUR ---
[facility], PATIENT WAS BROUGHT IN TO ER BED 4
[2023-04-20 15:22] VITALS: BP 108/79
--- NOTE | 2023-04-20 15:24 | NUR ---
PT BIB [facility] FROM [facility] C/O GENERALIZED WEAKNESS X2 DAYS. PT HX OF DOWN SYNDROME ACTING BASELINE. STACH ON MONITOR. IV INSERTED TO RIGHT HAND #20GUAGE BLOOD DRAWN AND SENT TO LAB.
[2023-04-20 15:32] LABS: HEMOGLOBIN 12.2 g/dL (12.0-18.0); MEAN CORPUSCULAR HEMOGLOBIN 35 pg (27-31); MEAN CORPUSCULAR HGB CONC 33 g/dL (33-37); MEAN CORPUSCULAR VOLUME 106.5 fL (80-94); PLATELET COUNT (AUTO) 190 K/uL (140-450); RED BLOOD CELL COUNT(AUTO) 3.48 MIL/uL (4.20-6.10); RED CELL DISTRIBUTION WIDTH 16.5 % (11.6-13.7); WHITE BLOOD COUNT (AUTO) 4.1 K/uL (4.8-10.8)
[2023-04-20 15:52] LABS: APPEARANCE,URINE CLEAR (CLEAR); BILIRUBIN,URINE NEGATIVE (NEGATIVE); BLOOD, URINE NEGATIVE (NEGATIVE); COLOR,URINE YELLOW (YELLOW); LEUKOCYTE ESTERASE ,URINE NEGATIVE (NEGATIVE); NITRITE, URINE NEGATIVE (NEGATIVE); PH,URINE 6.5 (5.0-9.0); UGLUCOSE NEGATIVE (NEGATIVE)
[2023-04-20 15:55] LABS: ANION GAP 9.1 (8-16); CARBON DIOXIDE 31.6 mmol/L (21-32); CREATININE 0.9 mg/dL (0.6-1.3); POTASSIUM 4.7 mmol/L (3.5-5.1); TOTAL BILIRUBIN 0.1 mg/dL (0.0-1.0)
[2023-04-20 15:56] LABS: EOSINOPHILS % (MANUAL) 5 % (0-4); LYMPHOCYTES % (MANUAL) 77 % (20-46); MONOCYTES % (MANUAL) 9 % (5-12); PROMYELOCYTES % 1 % (0-0)
--- NOTE | 2023-04-20 19:16 | NUR ---
[facility] IS AT BEDSIDE.
--- NOTE | 2023-04-20 19:20 | NUR ---
IV removed, catheter intact and site benign. Applied folded 4x4 gauze and tape to stop bleeding.
[2023-04-20 19:30] VITALS: BP 99/78
--- NOTE | 2023-04-20 19:30 | NUR ---
pt picked up for transport with [facility].
== END 2023-04-20 19:30 | disposition home or self-care (01) ==
LOC: MED 14:57
DX: R53.1 Weakness (principal); E03.9 Hypothyroidism, unspecified; R41.82 Altered mental status, unspecified; Z79.899 Other long term (current) drug therapy; Z20.822 Contact with and (suspected) exposure to COVID-19
CPT/HCPCS: 36415; 70450; 71045; 80053; 81003; 85025; 87426; 96360; 99285; J7030; Q0092

== ENCOUNTER 2023-06-24 19:53 | Inpatient (IN) | payer OTHER, MEDICAID ==
[~2023-06-24] VITALS: Ht 152.4 cm; Wt 76.7 kg
[2023-06-24 20:00] VITALS: BP 101/56; PULSE 46; RESP 18; TEMP 98.4
[2023-06-24 20:57] LABS: BASOPHILS % (AUTO) 0.9 % (0.0-2.0); EOSINOPHILS # (AUTO) 0.1 K/uL (0-0.4); EOSINOPHILS % (AUTO) 4.2 % (0.0-4.0); HEMATOCRIT 35.6 % (36-52); HEMOGLOBIN 11.9 g/dL (12.0-18.0); LYMPHOCYTES # (AUTO) 1.5 K/uL (2.0-11.5); LYMPHOCYTES % (AUTO) 45.3 % (20.5-51.1); MEAN CORPUSCULAR HEMOGLOBIN 36 pg (27-31); MEAN CORPUSCULAR HGB CONC 33 g/dL (33-37); MEAN CORPUSCULAR VOLUME 106.8 fL (80-94); MONOCYTES # (AUTO) 0.5 K/uL (0.8-1.0); MONOCYTES % (AUTO) 15.5 % (1.7-9.3); NEUTROPHILS # (AUTO) 1.1 K/uL (1.8-7.7); NEUTROPHILS % (AUTO) 34.1 % (42.2-75.2); PLATELET COUNT (AUTO) 209 K/uL (140-450); RED BLOOD CELL COUNT(AUTO) 3.33 MIL/uL (4.20-6.10); RED CELL DISTRIBUTION WIDTH 16.1 % (11.6-13.7); WHITE BLOOD COUNT (AUTO) 3.3 K/uL (4.8-10.8)
[2023-06-24 21:40] LABS: ANION GAP 14.5 (8-16); CALCIUM 8.5 mg/dL (8.5-10.1); CARBON DIOXIDE 28.5 mmol/L (21-32); CHLORIDE 99 mmol/L (98-107); CREATININE 0.9 mg/dL (0.6-1.3); GFR ARICAN-AMERICAN 107 mL/min (>90); GFR NON ARICAN-AMERICAN 89 mL/min (>90); GLUCOSE 98 mg/dL (74-106); SODIUM SERUM 137 mmol/L (136-145); UREA NITROGEN, BLOOD 34 mg/dL (7-18)
[2023-06-24 21:50] LABS: ALANINE AMINOTRANSFERASE 39 U/L (12-78); ALBUMIN 3.2 g/dL (3.4-5.0); ALKALINE PHOSPHATASE 85 U/L (50-136); ASPARTATE AMINOTRANSFERASE 39 U/L (15-37); TOTAL BILIRUBIN 0.2 mg/dL (0.0-1.0); TOTAL PROTEIN, SERUM 7.8 g/dL (6.4-8.2)
[2023-06-24 23:21] LABS: APPEARANCE,URINE CLEAR (CLEAR); BILIRUBIN,URINE NEGATIVE (NEGATIVE); BLOOD, URINE NEGATIVE (NEGATIVE); COLOR,URINE YELLOW (YELLOW); LEUKOCYTE ESTERASE ,URINE NEGATIVE (NEGATIVE); NITRITE, URINE NEGATIVE (NEGATIVE); PH,URINE 7.5 (5.0-9.0); PROTEIN,URINE NEGATIVE (NEGATIVE); UGLUCOSE NEGATIVE (NEGATIVE); UROBILINOGEN,URINE 0.2 EU/dL (0.2 - 1)
[2023-06-24] MEDS ORDERED: ONDANSETRON 4 MG/2 ML VIAL IVP PRN (23:45)
[2023-06-25] MEDS ORDERED: VITA1TAB44 PO (01:17)
[2023-06-25] MEDS ORDERED: VITB12 PO (01:17)
[2023-06-25] MEDS ORDERED: ROB PO (01:17)
[2023-06-25] MEDS ORDERED: DOCU-299 PO (01:17)
[2023-06-25] MEDS ORDERED: MULT-2253 PO (01:17)
[2023-06-25] MEDS ORDERED: SYN.1 PO (01:17)
[2023-06-25] MEDS ORDERED: ACET-2619 PO (01:17)
[2023-06-25] MEDS ORDERED: PRO5 PO (01:17)
[2023-06-25] MEDS: LEVOTHYROXINE 0.088 MG TAB GT SCH (06:30)
[2023-06-25 07:06] LABS: BASOPHILS % (AUTO) 1.4 % (0.0-2.0); EOSINOPHILS # (AUTO) 0.2 K/uL (0-0.4); HEMATOCRIT 34.8 % (36-52); HEMOGLOBIN 11.7 g/dL (12.0-18.0); LYMPHOCYTES # (AUTO) 1.2 K/uL (2.0-11.5); LYMPHOCYTES % (AUTO) 38.5 % (20.5-51.1); MEAN CORPUSCULAR HEMOGLOBIN 36 pg (27-31); MEAN CORPUSCULAR HGB CONC 34 g/dL (33-37); MEAN CORPUSCULAR VOLUME 106.7 fL (80-94); MONOCYTES # (AUTO) 0.6 K/uL (0.8-1.0); MONOCYTES % (AUTO) 18.4 % (1.7-9.3); NEUTROPHILS # (AUTO) 1.2 K/uL (1.8-7.7); NEUTROPHILS % (AUTO) 36.7 % (42.2-75.2); PLATELET COUNT (AUTO) 200 K/uL (140-450); RED BLOOD CELL COUNT(AUTO) 3.27 MIL/uL (4.20-6.10); RED CELL DISTRIBUTION WIDTH 15.9 % (11.6-13.7); WHITE BLOOD COUNT (AUTO) 3.2 K/uL (4.8-10.8)
[2023-06-25 07:39] LABS: ANION GAP 9.3 (8-16); CALCIUM 8.5 mg/dL (8.5-10.1); CARBON DIOXIDE 31.8 mmol/L (21-32); CREATININE 1.1 mg/dL (0.6-1.3); POTASSIUM 5.1 mmol/L (3.5-5.1)
[2023-06-25] MEDS: LOSARTAN 25 MG TAB GT SCH (09:00)
[2023-06-25 09:51] VITALS: PULSE 55; RESP 17; O2SAT 96
[2023-06-25] MEDS: levETIRAcetam 100 MG/ML ORASYR GT SCH ×2 (10:34→22:11)
[2023-06-25] MEDS: ENOXAPARIN 40 MG/0.4 ML SYR SUBQ SCH (10:47)
[2023-06-25 12:04] VITALS: BP 136/44; PULSE 62; RESP 18; TEMP 97.6; O2SAT 96
[2023-06-25 12:08] VITALS: PULSE 61
[2023-06-25 16:00] VITALS: BP 95/73; PULSE 62; RESP 18; TEMP 97.6; O2SAT 96
[2023-06-25 16:18] VITALS: PULSE 55
[2023-06-25 20:00] VITALS: BP 118/63; PULSE 62; PULSE 68; RESP 18; TEMP 98.8; O2SAT 96
[2023-06-26] VITALS (10 sets, daily range): BP systolic 95–127; BP diastolic 56–102; PULSE 55–75; RESP 18–19; TEMP 97.3–98.8; O2SAT 93–96
[2023-06-26] MEDS: LEVOTHYROXINE 0.088 MG TAB GT SCH (06:53)
[2023-06-26] MEDS: levETIRAcetam 100 MG/ML ORASYR GT SCH ×2 (08:00→20:06)
[2023-06-26] MEDS: LOSARTAN 25 MG TAB GT SCH (08:00)
[2023-06-26] MEDS: ENOXAPARIN 40 MG/0.4 ML SYR SUBQ SCH (08:03)
[2023-06-27] VITALS (7 sets, daily range): BP systolic 97–168; BP diastolic 30–83; PULSE 56–96; RESP 16–20; TEMP 97.6–98.7; O2SAT 95–100
[2023-06-27] MEDS: LEVOTHYROXINE 0.088 MG TAB GT SCH (05:57)
[2023-06-27] MEDS: levETIRAcetam 100 MG/ML ORASYR GT SCH ×2 (09:17→20:20)
[2023-06-27] MEDS: LOSARTAN 25 MG TAB GT SCH (09:18)
[2023-06-27] MEDS: ENOXAPARIN 40 MG/0.4 ML SYR SUBQ SCH (09:21)
[2023-06-27 12:23] LABS: BASOPHILS % (AUTO) 1.8 % (0.0-2.0); EOSINOPHILS # (AUTO) 0.1 K/uL (0-0.4); EOSINOPHILS % (AUTO) 3.1 % (0.0-4.0); HEMOGLOBIN 11.5 g/dL (12.0-18.0); LYMPHOCYTES # (AUTO) 0.9 K/uL (2.0-11.5); LYMPHOCYTES % (AUTO) 32.3 % (20.5-51.1); MEAN CORPUSCULAR HEMOGLOBIN 36 pg (27-31); MEAN CORPUSCULAR HGB CONC 33 g/dL (33-37); MEAN CORPUSCULAR VOLUME 107.8 fL (80-94); MONOCYTES # (AUTO) 0.3 K/uL (0.8-1.0); MONOCYTES % (AUTO) 9.3 % (1.7-9.3); NEUTROPHILS # (AUTO) 1.5 K/uL (1.8-7.7); NEUTROPHILS % (AUTO) 53.5 % (42.2-75.2); PLATELET COUNT (AUTO) 190 K/uL (140-450); RED BLOOD CELL COUNT(AUTO) 3.25 MIL/uL (4.20-6.10); RED CELL DISTRIBUTION WIDTH 15.9 % (11.6-13.7); WHITE BLOOD COUNT (AUTO) 2.8 K/uL (4.8-10.8)
[2023-06-27 12:49] LABS: ANION GAP 9.8 (8-16); CALCIUM 8.4 mg/dL (8.5-10.1); CARBON DIOXIDE 29.8 mmol/L (21-32); POTASSIUM 4.6 mmol/L (3.5-5.1)
[2023-06-27 12:54] LABS: PHOSPHORUS 4.7 mg/dL (2.5-4.9)
[2023-06-28] VITALS (8 sets, daily range): BP systolic 97–131; BP diastolic 39–76; PULSE 50–78; RESP 16–18; TEMP 96.9–99.6; O2SAT 93–100
[2023-06-28] MEDS: LEVOTHYROXINE 0.088 MG TAB GT SCH (05:51)
[2023-06-28 06:58] LABS: BASOPHILS % (AUTO) 0.5 % (0.0-2.0); EOSINOPHILS # (AUTO) 0.1 K/uL (0-0.4); EOSINOPHILS % (AUTO) 0.9 % (0.0-4.0); HEMATOCRIT 33.8 % (36-52); HEMOGLOBIN 11.5 g/dL (12.0-18.0); LYMPHOCYTES # (AUTO) 0.7 K/uL (2.0-11.5); LYMPHOCYTES % (AUTO) 8.5 % (20.5-51.1); MEAN CORPUSCULAR HEMOGLOBIN 36 pg (27-31); MEAN CORPUSCULAR HGB CONC 34 g/dL (33-37); MEAN CORPUSCULAR VOLUME 106.8 fL (80-94); MONOCYTES # (AUTO) 0.4 K/uL (0.8-1.0); NEUTROPHILS # (AUTO) 7.1 K/uL (1.8-7.7); NEUTROPHILS % (AUTO) 85.1 % (42.2-75.2); PLATELET COUNT (AUTO) 169 K/uL (140-450); RED BLOOD CELL COUNT(AUTO) 3.16 MIL/uL (4.20-6.10); RED CELL DISTRIBUTION WIDTH 15.9 % (11.6-13.7); WHITE BLOOD COUNT (AUTO) 8.4 K/uL (4.8-10.8)
[2023-06-28 07:09] LABS: ANION GAP 13.1 (8-16); CALCIUM 8.3 mg/dL (8.5-10.1); CARBON DIOXIDE 28.3 mmol/L (21-32); CREATININE 1.2 mg/dL (0.6-1.3); POTASSIUM 4.4 mmol/L (3.5-5.1)
[2023-06-28] MEDS: LOSARTAN 25 MG TAB GT SCH (08:17)
[2023-06-28] MEDS: levETIRAcetam 100 MG/ML ORASYR GT SCH ×2 (08:17→20:17)
[2023-06-28] MEDS: ENOXAPARIN 40 MG/0.4 ML SYR SUBQ SCH (08:20)
[2023-06-29] VITALS: BP 113/47; PULSE 54; RESP 18; TEMP 97.8; O2SAT 95
[2023-06-29 04:00] VITALS: BP 110/41; PULSE 54; PULSE 58; PULSE 59; RESP 18; TEMP 98.1; O2SAT 97
[2023-06-29] MEDS: LEVOTHYROXINE 0.088 MG TAB GT SCH (05:43)
[2023-06-29 06:36] LABS: HEMATOCRIT 34.4 % (36-52); HEMOGLOBIN 11.4 g/dL (12.0-18.0); MEAN CORPUSCULAR HEMOGLOBIN 36 pg (27-31); MEAN CORPUSCULAR HGB CONC 33 g/dL (33-37); MEAN CORPUSCULAR VOLUME 107.2 fL (80-94); PLATELET COUNT (AUTO) 159 K/uL (140-450); RED BLOOD CELL COUNT(AUTO) 3.21 MIL/uL (4.20-6.10); RED CELL DISTRIBUTION WIDTH 15.3 % (11.6-13.7); WHITE BLOOD COUNT (AUTO) 3.4 K/uL (4.8-10.8)
[2023-06-29 06:59] LABS: ANION GAP 10.7 (8-16); CALCIUM 8.1 mg/dL (8.5-10.1); CARBON DIOXIDE 30.2 mmol/L (21-32); POTASSIUM 3.9 mmol/L (3.5-5.1)
[2023-06-29 07:20] LABS: MONOCYTES % (MANUAL) 15 % (5-12)
[2023-06-29 07:22] LABS: EOSINOPHILS % (MANUAL) 3 % (0-4); LYMPHOCYTES % (MANUAL) 31 % (20-46)
[2023-06-29 08:00] VITALS: BP 90/56; PULSE 54; PULSE 60; RESP 16; TEMP 98.3; O2SAT 96; O2SAT 98
[2023-06-29] MEDS: levETIRAcetam 100 MG/ML ORASYR GT SCH (08:15)
[2023-06-29] MEDS: ENOXAPARIN 40 MG/0.4 ML SYR SUBQ SCH (08:16)
[2023-06-29] MEDS: LOSARTAN 25 MG TAB GT SCH (08:16)
== END 2023-06-29 11:55 | disposition home or self-care (01) | DRG 303 ==
LOC: MED 19:53 → MMU 23:46 → MTU 06-25 06:19 → OBSVTOIN 06-25 11:50
PROVIDERS: ADMIT Student in an Organized Health Care Education/Training Program; ATTEND Student in an Organized Health Care Education/Training Program
DX: I25.5 Ischemic cardiomyopathy (principal); J98.11 Atelectasis; R00.1 Bradycardia, unspecified; D53.9 Nutritional anemia, unspecified; K21.9 Gastro-esophageal reflux disease without esophagitis; E86.0 Dehydration; J44.9 Chronic obstructive pulmonary disease, unspecified; E03.9 Hypothyroidism, unspecified; Q90.9 Down syndrome, unspecified; Z79.899 Other long term (current) drug therapy; Z93.1 Gastrostomy status; Z87.01 Personal history of pneumonia (recurrent); Z87.440 Personal history of urinary (tract) infections
CPT/HCPCS: 51702; 99285; G0378; 36415; 71045; 80048; 80053; 81003; 83735; 84100; 84439; 84443; 84484; 85025; 87081; 93005; J1650

== ENCOUNTER 2023-11-25 15:33 | Inpatient (IN) | payer MEDICAID, OTHER ==
[~2023-11-25] VITALS: Ht 152.4 cm; Wt 81.6 kg
[~2023-11-25 15:33] MED LIST changes: +ACET-2619 PO; +DOCU-299 PO; -LEVO0.087 PEG; +LOSA-269 PO; -LOSA25TA1 PO; +MULT-2253 PO; +PRO5 PO; +ROB PO; +SYN.1 PO; +VITA1TAB44 PO; +VITB12 PO
[2023-11-25 15:42] VITALS: BP 98/60; PULSE 62; RESP 18; TEMP 96.7; O2SAT 94
[2023-11-25] MEDS ORDERED: NACL 0.9% 1,000 ML IV ONE (16:55)
[2023-11-25 17:33] VITALS: O2SAT 94
[2023-11-25 17:52] LABS: BASOPHILS % (AUTO) 0.6 % (0.0-2.0); EOSINOPHILS # (AUTO) 0.1 K/uL (0-0.4); EOSINOPHILS % (AUTO) 4.8 % (0.0-4.0); HEMOGLOBIN 11.4 g/dL (12.0-18.0); LYMPHOCYTES # (AUTO) 1.1 K/uL (2.0-11.5); LYMPHOCYTES % (AUTO) 42.3 % (20.5-51.1); MEAN CORPUSCULAR HEMOGLOBIN 36 pg (27-31); MEAN CORPUSCULAR HGB CONC 34 g/dL (33-37); MEAN CORPUSCULAR VOLUME 107.3 fL (80-94); MONOCYTES # (AUTO) 0.4 K/uL (0.8-1.0); MONOCYTES % (AUTO) 15.8 % (1.7-9.3); NEUTROPHILS % (AUTO) 36.5 % (42.2-75.2); PLATELET COUNT (AUTO) 229 K/uL (140-450); RED BLOOD CELL COUNT(AUTO) 3.17 MIL/uL (4.20-6.10); RED CELL DISTRIBUTION WIDTH 16.9 % (11.6-13.7); WHITE BLOOD COUNT (AUTO) 2.6 K/uL (4.8-10.8)
[2023-11-25 18:15] LABS: CALCIUM 8.7 mg/dL (8.5-10.1); CARBON DIOXIDE 32.7 mmol/L (21-32); CREATININE 0.9 mg/dL (0.6-1.3); POTASSIUM 4.7 mmol/L (3.5-5.1)
[2023-11-25 18:18] LABS: ALBUMIN 2.8 g/dL (3.4-5.0); BILIRUBIN,DIRECT 0.1 mg/dL (0.0-0.3); TOTAL BILIRUBIN 0.3 mg/dL (0.0-1.0); TOTAL PROTEIN, SERUM 7.8 g/dL (6.4-8.2)
[2023-11-25] MEDS ORDERED: VANCOMYCIN 1,000 MG in DEXTROSE 5% 250 ML IV ONE (20:45)
[2023-11-25] MEDS ORDERED: cefTRIAXone 1,000 MG VIAL ONE (21:39)
[2023-11-25] MEDS ORDERED: ACETAMINOPHEN 325 MG TAB PO PRN (21:45)
[2023-11-25] MEDS ORDERED: ONDANSETRON 4 MG/2 ML VIAL IVP PRN (21:45)
[2023-11-25] MEDS ORDERED: VANCOMYCIN PER PHARMACY MC PRN (21:45)
[2023-11-25] MEDS ORDERED: HYDROcodone/APAP 5/325 MG 1 TAB TAB PO PRN (21:45)
[2023-11-25] MEDS ORDERED: LORazepam 2 MG/ML VIAL IVP PRN (21:55)
[2023-11-25] MEDS ORDERED: ALBUTEROL 0.083% 2.5 MG/3 ML NEBU INH PRN (21:55)
[2023-11-25 22:27] LABS: INR 0.99 (0.8-1.2); PROTHROMBIN TIME 10.4 secs (10.8-13.4)
[2023-11-25] MEDS ORDERED: levETIRAcetam 100 MG/ML VIAL IV ONE (23:07)
[2023-11-25] MEDS: NACL 0.9% 500 ML IV SCH (23:15)
[2023-11-25] MEDS: levETIRAcetam 500 MG in NACL 0.9% 100 ML IV SCH (23:30)
[2023-11-26] VITALS (7 sets, daily range): BP systolic 98–124; BP diastolic 54–75; PULSE 53–88; RESP 18–20; TEMP 97.2–98.8; O2SAT 94
[2023-11-26] MEDS ORDERED: VANCOMYCIN 1,000 MG VIAL ONE (00:24)
[2023-11-26] MEDS: NACL 0.9% 500 ML IV SCH (04:30)
[2023-11-26] MEDS ORDERED: LEVOTHYROXINE 0.1 MG TAB PO SCH (06:30)
[2023-11-26 06:39] LABS: BASOPHILS % (AUTO) 0.3 % (0.0-2.0); EOSINOPHILS # (AUTO) 0.1 K/uL (0-0.4); EOSINOPHILS % (AUTO) 4.9 % (0.0-4.0); HEMATOCRIT 32.9 % (36-52); HEMOGLOBIN 11.2 g/dL (12.0-18.0); LYMPHOCYTES # (AUTO) 1.2 K/uL (2.0-11.5); LYMPHOCYTES % (AUTO) 42.5 % (20.5-51.1); MEAN CORPUSCULAR HEMOGLOBIN 37 pg (27-31); MEAN CORPUSCULAR HGB CONC 34 g/dL (33-37); MEAN CORPUSCULAR VOLUME 107.3 fL (80-94); MONOCYTES # (AUTO) 0.5 K/uL (0.8-1.0); MONOCYTES % (AUTO) 17.2 % (1.7-9.3); NEUTROPHILS % (AUTO) 35.1 % (42.2-75.2); PLATELET COUNT (AUTO) 239 K/uL (140-450); RED BLOOD CELL COUNT(AUTO) 3.06 MIL/uL (4.20-6.10); RED CELL DISTRIBUTION WIDTH 16.9 % (11.6-13.7); WHITE BLOOD COUNT (AUTO) 2.9 K/uL (4.8-10.8)
[2023-11-26 07:05] LABS: ALBUMIN 2.9 g/dL (3.4-5.0); ANION GAP 11.2 (8-16); CALCIUM 8.4 mg/dL (8.5-10.1); CARBON DIOXIDE 28.1 mmol/L (21-32); CREATININE 0.9 mg/dL (0.6-1.3); POTASSIUM 4.3 mmol/L (3.5-5.1); TOTAL BILIRUBIN 0.7 mg/dL (0.0-1.0); TOTAL PROTEIN, SERUM 8.6 g/dL (6.4-8.2)
[2023-11-26] MEDS: LEVOTHYROXINE 0.112 MG TAB PO SCH (08:57)
[2023-11-26] MEDS ORDERED: VANCOMYCIN 750 MG in DEXTROSE 5% 250 ML IV SCH (09:00)
[2023-11-26] MEDS ORDERED: CEFEPIME 1,000 MG VIAL ONE (09:03)
[2023-11-26] MEDS ORDERED: levETIRAcetam 100 MG/ML VIAL IV ONE (09:04)
[2023-11-26] MEDS: levETIRAcetam 500 MG in NACL 0.9% 100 ML IV SCH ×2 (09:10→19:58)
[2023-11-26] MEDS: CEFEPIME 1,000 MG in DEXTROSE 5% 50 ML IV SCH ×2 (09:24→20:47)
[2023-11-26 10:00] LABS: APPEARANCE,URINE CLEAR (CLEAR); BILIRUBIN,URINE NEGATIVE (NEGATIVE); BLOOD, URINE NEGATIVE (NEGATIVE); COLOR,URINE YELLOW (YELLOW); LEUKOCYTE ESTERASE ,URINE NEGATIVE (NEGATIVE); NITRITE, URINE NEGATIVE (NEGATIVE); PROTEIN,URINE NEGATIVE (NEGATIVE); UGLUCOSE NEGATIVE (NEGATIVE); UROBILINOGEN,URINE 0.2 EU/dL (0.2 - 1)
[2023-11-26] MEDS ORDERED: VANCOMYCIN HCL 750 MG PDS IV ONE (10:33)
[2023-11-26] MEDS: VANCOMYCIN 750 MG in DEXTROSE 5% 250 ML IV SCH ×2 (10:59→23:12)
[2023-11-27 04:00] VITALS: BP 98/49; PULSE 77; RESP 18; TEMP 98.5; O2SAT 95
[2023-11-27] MEDS: LEVOTHYROXINE 0.112 MG TAB PO SCH (05:38)
[2023-11-27 07:45] VITALS: PULSE 85; RESP 20; O2SAT 94
[2023-11-27 08:00] VITALS: BP 99/53; PULSE 75; RESP 17; TEMP 98.6; O2SAT 94
[2023-11-27 11:27] LABS: ANION GAP 13.8 (8-16); CALCIUM 8.4 mg/dL (8.5-10.1); CARBON DIOXIDE 26.6 mmol/L (21-32); CREATININE 0.9 mg/dL (0.6-1.3); POTASSIUM 4.4 mmol/L (3.5-5.1)
[2023-11-27] MEDS: CEFEPIME 1,000 MG in DEXTROSE 5% 50 ML IV SCH (12:25)
[2023-11-27] MEDS ORDERED: AMOX-999 PO (12:25)
[2023-11-27] MEDS ORDERED: FURO-572 PO (12:25)
[2023-11-27] MEDS: levETIRAcetam 500 MG in NACL 0.9% 100 ML IV SCH (12:26)
[2023-11-27] MEDS ORDERED: VANCOMYCIN 1,000 MG in DEXTROSE 5% 250 ML IV SCH (14:00)
[2023-11-27 20:00] VITALS: BP 100/61; PULSE 70; RESP 18; TEMP 98.4; O2SAT 95
== END 2023-11-27 20:18 | disposition home or self-care (01) | DRG 871 ==
LOC: MED 15:33 → MMU 21:42 → MTU 11-26 00:19
PROVIDERS: ADMIT Family Medicine; ATTEND Family Medicine
DX: A41.9 Sepsis, unspecified organism (principal); E43 Unspecified severe protein-calorie malnutrition; J15.69 Pneumonia due to other Gram-negative bacteria; K94.22 Gastrostomy infection; L03.311 Cellulitis of abdominal wall; Z68.35 Body mass index [BMI] 35.0-35.9, adult; D63.8 Anemia in other chronic diseases classified elsewhere; G40.909 Epilepsy, unspecified, not intractable, without status epilepticus; E03.9 Hypothyroidism, unspecified; F41.9 Anxiety disorder, unspecified; Y83.8 Other surgical procedures as the cause of abnormal reaction of the patient, or of later complication, without mention of misadventure at the time of the procedure; Y92.89 Other specified places as the place of occurrence of the external cause
CPT/HCPCS: 36415; 71045; 80048; 80053; 80076; 80202; 81003; 83605; 84439; 84443; 85025; 85610; 87040; 87081; 96365; 96367; 99285; J0692; J0696; J1953; J2060; J3370; J7060

== ENCOUNTER 2023-12-06 20:33 | Inpatient (IN) | payer OTHER ==
[~2023-12-06] VITALS: Ht 144.8 cm; Wt 81.6 kg
[~2023-12-06 20:33] MED LIST changes: +AMOX-999 PO; +FURO-572 PO; -TAM75 PO
[2023-12-06 20:43] VITALS: BP 110/63; PULSE 55; RESP 18; TEMP 97.5; O2SAT 99
[2023-12-06 23:28] LABS: BASOPHILS % (AUTO) 0.5 % (0.0-2.0); EOSINOPHILS # (AUTO) 0.2 K/uL (0-0.4); EOSINOPHILS % (AUTO) 2.3 % (0.0-4.0); HEMATOCRIT 33.4 % (36-52); HEMOGLOBIN 11.3 g/dL (12.0-18.0); LYMPHOCYTES # (AUTO) 1.1 K/uL (2.0-11.5); LYMPHOCYTES % (AUTO) 14.6 % (20.5-51.1); MEAN CORPUSCULAR HEMOGLOBIN 36 pg (27-31); MEAN CORPUSCULAR HGB CONC 34 g/dL (33-37); MEAN CORPUSCULAR VOLUME 106.3 fL (80-94); MONOCYTES # (AUTO) 0.6 K/uL (0.8-1.0); MONOCYTES % (AUTO) 7.6 % (1.7-9.3); NEUTROPHILS # (AUTO) 5.8 K/uL (1.8-7.7); PLATELET COUNT (AUTO) 199 K/uL (140-450); RED BLOOD CELL COUNT(AUTO) 3.14 MIL/uL (4.20-6.10); RED CELL DISTRIBUTION WIDTH 15.9 % (11.6-13.7); WHITE BLOOD COUNT (AUTO) 7.7 K/uL (4.8-10.8)
[2023-12-06 23:44] LABS: INR 0.98 (0.8-1.2); PROTHROMBIN TIME 10.3 secs (10.8-13.4)
[2023-12-06 23:49] LABS: ANION GAP 8.3 (8-16); CALCIUM 8.4 mg/dL (8.5-10.1); CARBON DIOXIDE 33.2 mmol/L (21-32); CREATININE 1.1 mg/dL (0.6-1.3); POTASSIUM 4.5 mmol/L (3.5-5.1)
[2023-12-06 23:55] LABS: ALBUMIN 2.8 g/dL (3.4-5.0); BILIRUBIN,DIRECT 0.1 mg/dL (0.0-0.3); TOTAL BILIRUBIN 0.3 mg/dL (0.0-1.0); TOTAL PROTEIN, SERUM 8.8 g/dL (6.4-8.2)
[2023-12-07] VITALS (7 sets, daily range): BP systolic 123–137; BP diastolic 71–97; PULSE 58–76; RESP 16–19; TEMP 96.3–97.2; O2SAT 92–95
[2023-12-07 06:36] LABS: EOSINOPHILS # (AUTO) 0.1 K/uL (0-0.4); EOSINOPHILS % (AUTO) 2.9 % (0.0-4.0); HEMATOCRIT 35.4 % (36-52); HEMOGLOBIN 11.9 g/dL (12.0-18.0); LYMPHOCYTES # (AUTO) 1.3 K/uL (2.0-11.5); LYMPHOCYTES % (AUTO) 25.8 % (20.5-51.1); MEAN CORPUSCULAR HEMOGLOBIN 36 pg (27-31); MEAN CORPUSCULAR HGB CONC 34 g/dL (33-37); MEAN CORPUSCULAR VOLUME 106.8 fL (80-94); MONOCYTES # (AUTO) 0.5 K/uL (0.8-1.0); MONOCYTES % (AUTO) 9.6 % (1.7-9.3); NEUTROPHILS # (AUTO) 2.9 K/uL (1.8-7.7); NEUTROPHILS % (AUTO) 60.7 % (42.2-75.2); PLATELET COUNT (AUTO) 212 K/uL (140-450); RED BLOOD CELL COUNT(AUTO) 3.31 MIL/uL (4.20-6.10); WHITE BLOOD COUNT (AUTO) 4.9 K/uL (4.8-10.8)
[2023-12-07 06:56] LABS: ALBUMIN 2.8 g/dL (3.4-5.0); ANION GAP 7.8 (8-16); CALCIUM 8.7 mg/dL (8.5-10.1); CARBON DIOXIDE 34.1 mmol/L (21-32); CREATININE 0.9 mg/dL (0.6-1.3); POTASSIUM 3.9 mmol/L (3.5-5.1); TOTAL BILIRUBIN 0.3 mg/dL (0.0-1.0); TOTAL PROTEIN, SERUM 8.9 g/dL (6.4-8.2)
[2023-12-07] MEDS ORDERED: NACL 0.9% 1,000 ML IV SCH (09:00)
[2023-12-07] MEDS ORDERED: ONDANSETRON 4 MG/2 ML VIAL IVP PRN (09:00)
== END 2023-12-07 20:25 | DRG 393 ==
LOC: MED 20:33 → MTU 12-07 01:13
PROVIDERS: ADMIT Student in an Organized Health Care Education/Training Program; ATTEND Student in an Organized Health Care Education/Training Program
PROC: 0D20XUZ Change Feeding Device in Upper Intestinal Tract, External Approach (ICD-10-PCS; principal; 2023-12-07)
DX: K94.23 Gastrostomy malfunction (principal); E43 Unspecified severe protein-calorie malnutrition; E03.9 Hypothyroidism, unspecified; Z68.39 Body mass index [BMI] 39.0-39.9, adult; G40.909 Epilepsy, unspecified, not intractable, without status epilepticus; D50.0 Iron deficiency anemia secondary to blood loss (chronic); Q90.9 Down syndrome, unspecified
CPT/HCPCS: 36415; 71045; 74150; 80048; 80053; 80076; 85025; 85610; 85730; 87040; 87081; 99285; Q0092

== ENCOUNTER 2024-02-29 11:47 | Inpatient (IN) | payer OTHER, MEDICAID ==
[~2024-02-29] VITALS: Ht 152.4 cm; Wt 74.8 kg
[2024-02-29 11:56] VITALS: BP 77/23; PULSE 70; RESP 16; TEMP 97.3; O2SAT 92
[2024-02-29] MEDS: NACL 0.9% 1,000 ML IV ONE (12:21)
[2024-02-29 12:31] LABS: HEMATOCRIT 32.2 % (36-52); HEMOGLOBIN 10.8 g/dL (12.0-18.0); MEAN CORPUSCULAR HEMOGLOBIN 37 pg (27-31); MEAN CORPUSCULAR HGB CONC 34 g/dL (33-37); MEAN CORPUSCULAR VOLUME 108.3 fL (80-94); PLATELET COUNT (AUTO) 224 K/uL (140-450); RED BLOOD CELL COUNT(AUTO) 2.97 MIL/uL (4.20-6.10); RED CELL DISTRIBUTION WIDTH 16.1 % (11.6-13.7)
[2024-02-29 12:50] LABS: ANION GAP 9.2 (8-16); CALCIUM 9.3 mg/dL (8.5-10.1); CARBON DIOXIDE 32.8 mmol/L (21-32); CREATININE 1.1 mg/dL (0.6-1.3); INR 0.97 (0.8-1.2); PARTIAL THROMBOPLASTIN TIME 24.3 secs (22-35.6); PROTHROMBIN TIME 10.2 secs (10.8-13.4)
[2024-02-29 12:59] LABS: ALANINE AMINOTRANSFERASE 34 U/L (12-78); ALBUMIN 2.8 g/dL (3.4-5.0); ALKALINE PHOSPHATASE 72 U/L (50-136); ASPARTATE AMINOTRANSFERASE 33 U/L (15-37); BILIRUBIN,DIRECT 0.1 mg/dL (0.0-0.3); CREATINE KINASE, TOTAL 42 U/L (39-308); LACTIC ACID 1.8 mmol/L (0.4-2.0); TOTAL BILIRUBIN 0.6 mg/dL (0.0-1.0); TOTAL PROTEIN, SERUM 7.6 g/dL (6.4-8.2)
[2024-02-29 13:01] LABS: LYMPHOCYTES % (MANUAL) 13 % (20-46); MONOCYTES % (MANUAL) 7 % (5-12); PLATELET ESTIMATE ADEQUATE
[2024-02-29 13:02] LABS: EOSINOPHILS % (MANUAL) 1 % (0-4)
[2024-02-29 13:13] LABS: FLU A ANTIGEN negative (NEGATIVE); FLU B ANTIGEN negative (NEGATIVE)
[2024-02-29] MEDS: PANTOPRAZOLE 40 MG INJ VIAL IVP ONE (13:18)
[2024-02-29 13:44] LABS: APPEARANCE,URINE CLEAR (CLEAR); BILIRUBIN,URINE NEGATIVE (NEGATIVE); BLOOD, URINE NEGATIVE (NEGATIVE); COLOR,URINE YELLOW (YELLOW); LEUKOCYTE ESTERASE ,URINE NEGATIVE (NEGATIVE); NITRITE, URINE NEGATIVE (NEGATIVE); PROTEIN,URINE NEGATIVE (NEGATIVE); UGLUCOSE NEGATIVE (NEGATIVE); UROBILINOGEN,URINE 0.2 EU/dL (0.2 - 1)
[2024-02-29] MEDS ORDERED: PIPERACILLIN/TAZOBACTAM 3.375 GM VIAL IV ONE ×2 (14:46→21:00)
[2024-02-29] MEDS: PIPERACILLIN/TAZOBACTAM 3.375 GM in DEXTROSE 5% 50 ML IV ONE (14:59)
[2024-02-29] MEDS: DEXAMETHASONE 10 MG/ML VIAL IVP ONE (15:01)
[2024-02-29] MEDS ORDERED: ONDANSETRON 4 MG/2 ML VIAL IVP PRN (15:20)
[2024-02-29] MEDS ORDERED: MORPHINE SULFATE 2 MG/ML SYR IVP PRN (15:20)
[2024-02-29] MEDS ORDERED: VANCOMYCIN PER PHARMACY MC PRN (15:30)
[2024-02-29] MEDS: NACL 0.9% 1,000 ML IV SCH (15:40)
[2024-02-29] MEDS: ALBUTEROL SULFATE/IPRATROPIU 3 ML SOL IH SCH (16:05)
[2024-02-29 16:06] VITALS: PULSE 69; RESP 15; O2SAT 96; O2SAT 98
[2024-02-29] MEDS: PANTOPRAZOLE 40 MG INJ VIAL IVP SCH (16:13)
[2024-02-29] MEDS: VANCOMYCIN 1.25GM PREMIX 250 ML IV SCH (17:59)
[2024-02-29 18:42] VITALS: PULSE 71; RESP 19; O2SAT 94
[2024-02-29 19:18] LABS: BLOOD GAS BASE EXCESS 0.2 mmol/L (-2.0-2.0); BLOOD GAS HCO3 25.3 mmol/L (22-26); BLOOD GAS O2 SAT% 94.1 % (92.0-98.5); BLOOD GAS PCO2 42.9 mmHg (35-45); BLOOD GAS PH 7.389 (7.35-7.45); BLOOD GAS PO2 74.4 mmHg (75-100)
[2024-02-29] MEDS: MIDODRINE 5 MG TAB PO SCH (19:59)
[2024-02-29 20:47] VITALS: O2SAT 94
[2024-02-29] MEDS: PIPERACILLIN/TAZOBACTAM 3.375 GM in DEXTROSE 5% 50 ML IV SCH (21:12)
[2024-02-29] MEDS: levETIRAcetam 100 MG/ML ORASYR GT SCH (21:22)
[2024-02-29] MEDS: guaiFENesin 600 MG TABER PO SCH (21:22)
[2024-02-29 23:11] VITALS: O2SAT 99
[2024-02-29] MEDS ORDERED: remdesivir COMMUNICATION ORDER 1 EA MISC MC PRN (23:55)
[2024-03-01] VITALS (9 sets, daily range): BP systolic 103–118; BP diastolic 43–89; PULSE 54–89; RESP 16–22; TEMP 96.5–97.3; O2SAT 93–100
[2024-03-01] MEDS: DEXAMETHASONE 4 MG/ML VIAL IVP SCH (00:25)
[2024-03-01] MEDS ORDERED: ALBUTEROL SULFATE/IPRATROPIU 3 ML SOL IH SCH (03:00)
[2024-03-01] MEDS ORDERED: PIPERACILLIN/TAZOBACTAM 3.375 GM VIAL IV ONE ×2 (05:32→05:59)
[2024-03-01] MEDS ORDERED: CLINICAL MONITORING MC PRN (07:25)
[2024-03-01] MEDS: CYANOCOBALAMIN 100 MCG TAB PO SCH (09:00)
[2024-03-01] MEDS ORDERED: QUETIAPINE FUMARATE GT/PO SCH (09:00)
[2024-03-01] MEDS: CHOLECALCIFEROL 1,000 IU TAB GT SCH (09:00)
[2024-03-01] MEDS: VIT-B COMP/VIT-C/FOLIC ACID 1 TAB PO SCH (09:00)
[2024-03-01] MEDS ORDERED: remdesivir CLINICAL MONITORING 1 EA MISC MC PRN (09:20)
[2024-03-01 10:19] LABS: BASOPHILS % (AUTO) 0.1 % (0.0-2.0); HEMATOCRIT 28.3 % (36-52); HEMOGLOBIN 9.6 g/dL (12.0-18.0); LYMPHOCYTES # (AUTO) 0.5 K/uL (2.0-11.5); LYMPHOCYTES % (AUTO) 7.2 % (20.5-51.1); MEAN CORPUSCULAR HEMOGLOBIN 37 pg (27-31); MEAN CORPUSCULAR HGB CONC 34 g/dL (33-37); MONOCYTES # (AUTO) 0.2 K/uL (0.8-1.0); MONOCYTES % (AUTO) 2.9 % (1.7-9.3); NEUTROPHILS # (AUTO) 6.7 K/uL (1.8-7.7); NEUTROPHILS % (AUTO) 89.8 % (42.2-75.2); PLATELET COUNT (AUTO) 192 K/uL (140-450); RED CELL DISTRIBUTION WIDTH 15.9 % (11.6-13.7); WHITE BLOOD COUNT (AUTO) 7.4 K/uL (4.8-10.8)
[2024-03-01] MEDS: QUEtiapine FUMARATE 100 MG TAB GT SCH (10:59)
[2024-03-01] MEDS: LEVOTHYROXINE 0.1 MG TAB PO SCH (11:00)
[2024-03-01] MEDS: POLYETHYLENE GLYCOL 17 GM/PKT GT SCH (11:00)
[2024-03-01] MEDS: LOSARTAN 25 MG TAB PO SCH (11:01)
[2024-03-01] MEDS: ESCITALOPRAM 20 MG TAB GT SCH (11:07)
[2024-03-01 11:08] LABS: ALBUMIN 2.5 g/dL (3.4-5.0); ANION GAP 10.6 (8-16); CALCIUM 8.3 mg/dL (8.5-10.1); CARBON DIOXIDE 31.3 mmol/L (21-32); PHOSPHORUS 3.6 mg/dL (2.5-4.9); POTASSIUM 4.9 mmol/L (3.5-5.1); TOTAL BILIRUBIN 0.3 mg/dL (0.0-1.0); TOTAL PROTEIN, SERUM 7.1 g/dL (6.4-8.2)
[2024-03-01] MEDS: ZINC SULF 220 MG CAP GT SCH (11:08)
[2024-03-01] MEDS: ASCORBIC ACID 500 MG/5 ML ORASYR GT SCH (11:08)
[2024-03-01] MEDS: DEXT 5% /NACL 0.9% 1,000 ML IV SCH (11:20)
[2024-03-01] MEDS: REMDESIVIR. 200 MG in NACL 0.9% 100 ML IV SCH (12:00)
[2024-03-01] MEDS: LORazepam 1 MG TAB GT PRN (21:53)
[2024-03-02] VITALS (12 sets, daily range): BP systolic 105–122; BP diastolic 61–75; PULSE 67–88; RESP 16–72; TEMP 96.2–97.5; O2SAT 95–100
[2024-03-02] MEDS: HYDROcodone/APAP 5/325 MG 1 TAB TAB PO PRN (02:43)
[2024-03-02 07:57] LABS: ALBUMIN 2.6 g/dL (3.4-5.0); ANION GAP 12.9 (8-16); CALCIUM 8.5 mg/dL (8.5-10.1); CARBON DIOXIDE 27.4 mmol/L (21-32); POTASSIUM 4.3 mmol/L (3.5-5.1); TOTAL BILIRUBIN 0.4 mg/dL (0.0-1.0); TOTAL PROTEIN, SERUM 7.2 g/dL (6.4-8.2)
[2024-03-02] MEDS: REMDESIVIR. 100 MG in NACL 0.9% 100 ML IV SCH (12:00)
[2024-03-02] MEDS: DEXT 5% / NACL 0.9% 500 ML IV SCH (17:00)
[2024-03-03] VITALS (16 sets, daily range): BP systolic 94–122; BP diastolic 41–75; PULSE 58–88; RESP 15–26; TEMP 96.8–98.5; O2SAT 87–100
[2024-03-03 07:01] LABS: BASOPHILS % (AUTO) 0.7 % (0.0-2.0); EOSINOPHILS % (AUTO) 0.4 % (0.0-4.0); HEMATOCRIT 26.2 % (36-52); HEMOGLOBIN 8.9 g/dL (12.0-18.0); LYMPHOCYTES # (AUTO) 1.8 K/uL (2.0-11.5); LYMPHOCYTES % (AUTO) 33.8 % (20.5-51.1); MEAN CORPUSCULAR HEMOGLOBIN 37 pg (27-31); MEAN CORPUSCULAR HGB CONC 34 g/dL (33-37); MEAN CORPUSCULAR VOLUME 107.9 fL (80-94); MONOCYTES # (AUTO) 0.9 K/uL (0.8-1.0); MONOCYTES % (AUTO) 17.9 % (1.7-9.3); NEUTROPHILS # (AUTO) 2.5 K/uL (1.8-7.7); NEUTROPHILS % (AUTO) 47.2 % (42.2-75.2); PLATELET COUNT (AUTO) 183 K/uL (140-450); RED BLOOD CELL COUNT(AUTO) 2.43 MIL/uL (4.20-6.10); WHITE BLOOD COUNT (AUTO) 5.2 K/uL (4.8-10.8)
[2024-03-03 07:23] LABS: ALBUMIN 2.5 g/dL (3.4-5.0); ANION GAP 11.6 (8-16); CALCIUM 7.9 mg/dL (8.5-10.1); CARBON DIOXIDE 29.4 mmol/L (21-32); CREATININE 0.9 mg/dL (0.6-1.3); TOTAL BILIRUBIN 0.4 mg/dL (0.0-1.0); TOTAL PROTEIN, SERUM 6.5 g/dL (6.4-8.2)
[2024-03-04] VITALS (16 sets, daily range): BP systolic 86–133; BP diastolic 41–82; PULSE 57–101; RESP 13–25; TEMP 97–97.5; O2SAT 92–100
[2024-03-04 05:55] LABS: ALBUMIN 2.3 g/dL (3.4-5.0); ANION GAP 11.1 (8-16); CALCIUM 7.9 mg/dL (8.5-10.1); CARBON DIOXIDE 29.1 mmol/L (21-32); CREATININE 0.9 mg/dL (0.6-1.3); POTASSIUM 4.2 mmol/L (3.5-5.1); TOTAL BILIRUBIN 0.3 mg/dL (0.0-1.0); TOTAL PROTEIN, SERUM 6.3 g/dL (6.4-8.2)
[2024-03-04 06:14] LABS: HEMATOCRIT 25.7 % (36-52); HEMOGLOBIN 8.7 g/dL (12.0-18.0); MEAN CORPUSCULAR HEMOGLOBIN 37 pg (27-31); MEAN CORPUSCULAR HGB CONC 34 g/dL (33-37); PLATELET COUNT (AUTO) 186 K/uL (140-450); RED BLOOD CELL COUNT(AUTO) 2.38 MIL/uL (4.20-6.10); RED CELL DISTRIBUTION WIDTH 15.8 % (11.6-13.7); WHITE BLOOD COUNT (AUTO) 4.9 K/uL (4.8-10.8)
[2024-03-04 07:19] LABS: LYMPHOCYTES % (MANUAL) 33 % (20-46); MONOCYTES % (MANUAL) 16 % (5-12); PLATELET ESTIMATE ADEQUATE; POLYCHROMASIA 1+
[2024-03-04] MEDS: CRUSHER, PILL MC ONE (08:59)
[2024-03-04] MEDS ORDERED: QUEtiapine FUMARATE 25 MG TAB PO SCH (09:00)
[2024-03-04] MEDS ORDERED: guaiFENesin 600 MG TABER PO SCH ×2 (09:00→21:00)
[2024-03-04] MEDS: guaiFENesin 20 MG/ML UDC GT SCH (20:44)
[2024-03-05] VITALS (16 sets, daily range): BP systolic 92–132; BP diastolic 35–84; PULSE 60–86; RESP 12–20; TEMP 97–98.7; O2SAT 92–98
[2024-03-05 05:42] LABS: BASOPHILS % (AUTO) 0.3 % (0.0-2.0); EOSINOPHILS % (AUTO) 0.4 % (0.0-4.0); HEMATOCRIT 30.2 % (36-52); HEMOGLOBIN 10.2 g/dL (12.0-18.0); LYMPHOCYTES # (AUTO) 2.1 K/uL (2.0-11.5); LYMPHOCYTES % (AUTO) 29.5 % (20.5-51.1); MEAN CORPUSCULAR HEMOGLOBIN 36 pg (27-31); MEAN CORPUSCULAR HGB CONC 34 g/dL (33-37); MEAN CORPUSCULAR VOLUME 107.4 fL (80-94); MONOCYTES # (AUTO) 1.1 K/uL (0.8-1.0); MONOCYTES % (AUTO) 15.7 % (1.7-9.3); NEUTROPHILS # (AUTO) 3.8 K/uL (1.8-7.7); NEUTROPHILS % (AUTO) 54.1 % (42.2-75.2); PLATELET COUNT (AUTO) 194 K/uL (140-450); RED BLOOD CELL COUNT(AUTO) 2.81 MIL/uL (4.20-6.10); RED CELL DISTRIBUTION WIDTH 15.3 % (11.6-13.7)
[2024-03-05 05:54] LABS: ALBUMIN 2.6 g/dL (3.4-5.0); ANION GAP 12.7 (8-16); CARBON DIOXIDE 31.1 mmol/L (21-32); POTASSIUM 4.8 mmol/L (3.5-5.1); TOTAL BILIRUBIN 0.3 mg/dL (0.0-1.0); TOTAL PROTEIN, SERUM 6.5 g/dL (6.4-8.2)
[2024-03-05] MEDS: ASCORBIC ACID 500 MG TAB GT SCH (08:30)
[2024-03-06] VITALS (19 sets, daily range): BP systolic 61–144; BP diastolic 33–72; PULSE 55–83; RESP 12–25; TEMP 96.1–98.2; O2SAT 90–100
[2024-03-06 05:33] LABS: BASOPHILS % (AUTO) 0.4 % (0.0-2.0); EOSINOPHILS # (AUTO) 0.1 K/uL (0-0.4); EOSINOPHILS % (AUTO) 1.1 % (0.0-4.0); HEMATOCRIT 28.3 % (36-52); HEMOGLOBIN 9.5 g/dL (12.0-18.0); LYMPHOCYTES # (AUTO) 1.9 K/uL (2.0-11.5); LYMPHOCYTES % (AUTO) 41.5 % (20.5-51.1); MEAN CORPUSCULAR HEMOGLOBIN 36 pg (27-31); MEAN CORPUSCULAR HGB CONC 34 g/dL (33-37); MEAN CORPUSCULAR VOLUME 108.1 fL (80-94); MONOCYTES # (AUTO) 0.7 K/uL (0.8-1.0); MONOCYTES % (AUTO) 15.2 % (1.7-9.3); NEUTROPHILS # (AUTO) 1.9 K/uL (1.8-7.7); NEUTROPHILS % (AUTO) 41.8 % (42.2-75.2); PLATELET COUNT (AUTO) 211 K/uL (140-450); RED BLOOD CELL COUNT(AUTO) 2.62 MIL/uL (4.20-6.10); RED CELL DISTRIBUTION WIDTH 15.4 % (11.6-13.7); WHITE BLOOD COUNT (AUTO) 4.5 K/uL (4.8-10.8)
[2024-03-06 06:14] LABS: ALBUMIN 2.5 g/dL (3.4-5.0); ANION GAP 9.8 (8-16); CARBON DIOXIDE 30.4 mmol/L (21-32); CREATININE 0.7 mg/dL (0.6-1.3); POTASSIUM 4.2 mmol/L (3.5-5.1); TOTAL BILIRUBIN 0.3 mg/dL (0.0-1.0); TOTAL PROTEIN, SERUM 6.5 g/dL (6.4-8.2)
[2024-03-06] MEDS: ALBUTEROL SULFATE/IPRATROPIU 3 ML SOL IH SCH (07:34)
[2024-03-06] MEDS: MIDODRINE 5 MG TAB PO SCH (12:44)
[2024-03-07] VITALS (13 sets, daily range): BP systolic 94–124; BP diastolic 43–75; PULSE 53–68; RESP 13–21; TEMP 97.1–98.4; O2SAT 89–100
[2024-03-07 05:36] LABS: BASOPHILS % (AUTO) 0.3 % (0.0-2.0); EOSINOPHILS % (AUTO) 0.6 % (0.0-4.0); HEMATOCRIT 28.8 % (36-52); HEMOGLOBIN 9.8 g/dL (12.0-18.0); LYMPHOCYTES # (AUTO) 1.8 K/uL (2.0-11.5); LYMPHOCYTES % (AUTO) 33.2 % (20.5-51.1); MEAN CORPUSCULAR HEMOGLOBIN 37 pg (27-31); MEAN CORPUSCULAR HGB CONC 34 g/dL (33-37); MEAN CORPUSCULAR VOLUME 107.2 fL (80-94); MONOCYTES # (AUTO) 0.7 K/uL (0.8-1.0); MONOCYTES % (AUTO) 12.2 % (1.7-9.3); NEUTROPHILS % (AUTO) 53.7 % (42.2-75.2); PLATELET COUNT (AUTO) 216 K/uL (140-450); RED BLOOD CELL COUNT(AUTO) 2.69 MIL/uL (4.20-6.10); RED CELL DISTRIBUTION WIDTH 15.1 % (11.6-13.7); WHITE BLOOD COUNT (AUTO) 5.5 K/uL (4.8-10.8)
[2024-03-07 05:38] LABS: CALCIUM 8.1 mg/dL (8.5-10.1); CARBON DIOXIDE 33.5 mmol/L (21-32); CREATININE 0.9 mg/dL (0.6-1.3); POTASSIUM 4.5 mmol/L (3.5-5.1)
[2024-03-07] MEDS ORDERED: FOAM DRESSING TP PRN (08:55)
[2024-03-07] MEDS ORDERED: VANCOMYCIN PER PHARMACY MC PRN (09:30)
[2024-03-07] MEDS: CRUSHER, PILL MC ONE (09:37)
[2024-03-07] MEDS: FOAM DRESSING TP SCH (13:26)
[2024-03-08] VITALS (9 sets, daily range): BP systolic 108–129; BP diastolic 44–61; PULSE 54–93; RESP 16–19; TEMP 96.9–98.2; O2SAT 93–100
[2024-03-08 06:36] LABS: BASOPHILS % (AUTO) 0.2 % (0.0-2.0); EOSINOPHILS % (AUTO) 0.3 % (0.0-4.0); HEMATOCRIT 29.9 % (36-52); HEMOGLOBIN 10.2 g/dL (12.0-18.0); LYMPHOCYTES # (AUTO) 1.7 K/uL (2.0-11.5); LYMPHOCYTES % (AUTO) 29.7 % (20.5-51.1); MEAN CORPUSCULAR HEMOGLOBIN 37 pg (27-31); MEAN CORPUSCULAR HGB CONC 34 g/dL (33-37); MEAN CORPUSCULAR VOLUME 107.2 fL (80-94); MONOCYTES # (AUTO) 0.8 K/uL (0.8-1.0); MONOCYTES % (AUTO) 13.8 % (1.7-9.3); NEUTROPHILS # (AUTO) 3.2 K/uL (1.8-7.7); PLATELET COUNT (AUTO) 256 K/uL (140-450); RED BLOOD CELL COUNT(AUTO) 2.79 MIL/uL (4.20-6.10); RED CELL DISTRIBUTION WIDTH 15.3 % (11.6-13.7); WHITE BLOOD COUNT (AUTO) 5.6 K/uL (4.8-10.8)
[2024-03-08 08:01] LABS: ANION GAP 8.6 (8-16); CALCIUM 8.4 mg/dL (8.5-10.1); CREATININE 0.8 mg/dL (0.6-1.3); POTASSIUM 4.6 mmol/L (3.5-5.1)
[2024-03-09] VITALS (14 sets, daily range): BP systolic 75–140; BP diastolic 36–75; PULSE 60–118; RESP 12–20; TEMP 96.9–97.8; O2SAT 96–100
[2024-03-09 06:21] LABS: BASOPHILS % (AUTO) 0.9 % (0.0-2.0); EOSINOPHILS % (AUTO) 0.4 % (0.0-4.0); HEMOGLOBIN 9.9 g/dL (12.0-18.0); LYMPHOCYTES # (AUTO) 1.4 K/uL (2.0-11.5); LYMPHOCYTES % (AUTO) 28.3 % (20.5-51.1); MEAN CORPUSCULAR HEMOGLOBIN 37 pg (27-31); MEAN CORPUSCULAR HGB CONC 34 g/dL (33-37); MONOCYTES # (AUTO) 0.6 K/uL (0.8-1.0); NEUTROPHILS # (AUTO) 2.8 K/uL (1.8-7.7); NEUTROPHILS % (AUTO) 57.4 % (42.2-75.2); PLATELET COUNT (AUTO) 248 K/uL (140-450); RED BLOOD CELL COUNT(AUTO) 2.69 MIL/uL (4.20-6.10); RED CELL DISTRIBUTION WIDTH 15.5 % (11.6-13.7); WHITE BLOOD COUNT (AUTO) 4.8 K/uL (4.8-10.8)
[2024-03-09 06:49] LABS: ANION GAP 8.8 (8-16); CALCIUM 8.6 mg/dL (8.5-10.1); CARBON DIOXIDE 31.8 mmol/L (21-32); CREATININE 0.9 mg/dL (0.6-1.3); POTASSIUM 4.6 mmol/L (3.5-5.1)
[2024-03-09] MEDS: NACL 0.9% 1,000 ML IV SCH (12:42)
[2024-03-10] VITALS (8 sets, daily range): BP systolic 102–107; BP diastolic 45–70; PULSE 43–69; RESP 14–18; TEMP 97.1–97.8; O2SAT 96–100
[2024-03-10 06:51] LABS: CALCIUM 7.9 mg/dL (8.5-10.1); CARBON DIOXIDE 30.2 mmol/L (21-32); CREATININE 0.7 mg/dL (0.6-1.3); POTASSIUM 4.2 mmol/L (3.5-5.1)
[2024-03-10] MEDS: VANCOMYCIN 750 MG in DEXTROSE 5% 250 ML IV SCH (09:31)
[2024-03-10] MEDS: PIPERACILLIN/TAZOBACTAM 3.375 GM in DEXTROSE 5% 50 ML IV SCH (12:41)
== END 2024-03-10 16:40 | disposition home or self-care (01) | DRG 177 ==
LOC: MED 11:47 → MTU 15:28 → MIC 03-03 17:07 → MTU 03-07 18:05
PROVIDERS: ADMIT Internal Medicine; ATTEND Internal Medicine
PROC: XW033E5 Introduction of Remdesivir Anti-infective into Peripheral Vein, Percutaneous Approach, New Technology Group 5 (ICD-10-PCS; principal; 2024-03-02)
PROC: 02HV33Z Insertion of Infusion Device into Superior Vena Cava, Percutaneous Approach (ICD-10-PCS; 2024-03-05)
PROC: B548ZZA Ultrasonography of Superior Vena Cava, Guidance (ICD-10-PCS; 2024-03-05)
DX: U07.1 COVID-19 (principal); E43 Unspecified severe protein-calorie malnutrition; J12.82 Pneumonia due to coronavirus disease 2019; J96.01 Acute respiratory failure with hypoxia; N17.0 Acute kidney failure with tubular necrosis; J69.0 Pneumonitis due to inhalation of food and vomit; E87.1 Hypo-osmolality and hyponatremia; K56.49 Other impaction of intestine; K92.2 Gastrointestinal hemorrhage, unspecified; D68.00 Von Willebrand disease, unspecified; I50.22 Chronic systolic (congestive) heart failure; R65.10 Systemic inflammatory response syndrome (SIRS) of non-infectious origin without acute organ dysfunction; G40.909 Epilepsy, unspecified, not intractable, without status epilepticus; K21.9 Gastro-esophageal reflux disease without esophagitis; D53.9 Nutritional anemia, unspecified; I73.00 Raynaud's syndrome without gangrene; E03.9 Hypothyroidism, unspecified; F79 Unspecified intellectual disabilities; I11.0 Hypertensive heart disease with heart failure; Z93.1 Gastrostomy status; Q90.9 Down syndrome, unspecified; Z68.32 Body mass index [BMI] 32.0-32.9, adult
CPT/HCPCS: 36415; 36569; 36600; 71045; 80048; 80053; 80076; 80173; 80202; 81003; 82550; 82803; 83605; 83735; 83880; 84100; 84439; 84443; 84484; 85025; 85610; 85730; 86886; 86900; 86901; 87040; 87081; 87086; 93005; 94640; 96361; 96365; 96375; 99291; C1751; C9113; J1100; J2543; J3370; J3372; J7042; J7060; Q0092

== ENCOUNTER 2024-04-12 21:01 | Inpatient (IN) | payer OTHER, MEDICAID ==
[~2024-04-12] VITALS: Ht 165.1 cm; Wt 55.8 kg
[~2024-04-12 21:01] MED LIST changes: -AMOX-999 PO
[2024-04-12 21:09] VITALS: BP 107/90; PULSE 64; RESP 14; TEMP 97.1; O2SAT 96
[2024-04-12 21:53] LABS: BASOPHILS # (AUTO) 0.1 K/uL (0.00-0.22); BASOPHILS % (AUTO) 1.2 % (0.0-2.0); EOSINOPHILS # (AUTO) 0.2 K/uL (0-0.4); EOSINOPHILS % (AUTO) 2.7 % (0.0-4.0); HEMATOCRIT 39.6 % (36-52); HEMOGLOBIN 13.4 g/dL (12.0-18.0); LYMPHOCYTES # (AUTO) 1.6 K/uL (2.0-11.5); LYMPHOCYTES % (AUTO) 28.3 % (20.5-51.1); MEAN CORPUSCULAR HEMOGLOBIN 37 pg (27-31); MEAN CORPUSCULAR HGB CONC 34 g/dL (33-37); MEAN CORPUSCULAR VOLUME 108.4 fL (80-94); MONOCYTES # (AUTO) 0.8 K/uL (0.8-1.0); MONOCYTES % (AUTO) 13.5 % (1.7-9.3); NEUTROPHILS # (AUTO) 3.1 K/uL (1.8-7.7); NEUTROPHILS % (AUTO) 54.3 % (42.2-75.2); PLATELET COUNT (AUTO) 159 K/uL (140-450); RED BLOOD CELL COUNT(AUTO) 3.65 MIL/uL (4.20-6.10); RED CELL DISTRIBUTION WIDTH 16.3 % (11.6-13.7); WHITE BLOOD COUNT (AUTO) 5.6 K/uL (4.8-10.8)
[2024-04-12 22:24] LABS: ANION GAP 7.7 (8-16); CALCIUM 7.9 mg/dL (8.5-10.1); CARBON DIOXIDE 31.7 mmol/L (21-32); CREATININE 1.1 mg/dL (0.6-1.3); POTASSIUM 4.4 mmol/L (3.5-5.1)
[2024-04-12 22:27] LABS: INR 0.96 (0.8-1.2); PARTIAL THROMBOPLASTIN TIME 25.8 secs (22-35.6); PROTHROMBIN TIME 10.1 secs (10.8-13.4)
[2024-04-12 22:33] LABS: LACTIC ACID 0.9 mmol/L (0.4-2.0)
[2024-04-12 22:34] LABS: ALANINE AMINOTRANSFERASE 32 U/L (12-78); ALBUMIN 2.4 g/dL (3.4-5.0); ALKALINE PHOSPHATASE 74 U/L (50-136); ASPARTATE AMINOTRANSFERASE 19 U/L (15-37); BILIRUBIN,DIRECT 0.1 mg/dL (0.0-0.3); CREATINE KINASE, TOTAL 24 U/L (39-308); TOTAL BILIRUBIN 0.2 mg/dL (0.0-1.0); TOTAL PROTEIN, SERUM 5.8 g/dL (6.4-8.2)
[2024-04-12 22:51] LABS: APPEARANCE,URINE CLEAR (CLEAR); BILIRUBIN,URINE NEGATIVE (NEGATIVE); BLOOD, URINE NEGATIVE (NEGATIVE); COLOR,URINE YELLOW (YELLOW); LEUKOCYTE ESTERASE ,URINE NEGATIVE (NEGATIVE); NITRITE, URINE NEGATIVE (NEGATIVE); PROTEIN,URINE NEGATIVE (NEGATIVE); UGLUCOSE NEGATIVE (NEGATIVE); UROBILINOGEN,URINE 0.2 EU/dL (0.2 - 1)
[2024-04-12] MEDS: NACL 0.9% 1,000 ML IV ONE (22:57)
[2024-04-12] MEDS ORDERED: cefTRIAXone 1,000 MG VIAL ONE (23:00)
[2024-04-12] MEDS: NACL 0.9% 2,000 ML IV SCH (23:04)
[2024-04-12] MEDS ORDERED: AZITHROMYCIN 500 MG INJ VIAL IV ONE (23:10)
[2024-04-12 23:13] VITALS: O2SAT 98
[2024-04-12 23:15] VITALS: PULSE 52; RESP 19; O2SAT 98
[2024-04-12] MEDS: ALBUTEROL SULFATE/IPRATROPIU 3 ML SOL IH ONE (23:15)
[2024-04-12] MEDS: AZITHROMYCIN 500 MG in DEXTROSE 5% 250 ML IV ONE (23:30)
[2024-04-13] VITALS (10 sets, daily range): BP systolic 112–151; BP diastolic 55–100; PULSE 49–62; RESP 17–20; TEMP 97.2–98.1; O2SAT 95–99
[2024-04-13] MEDS: AZITHROMYCIN 250 MG in DEXTROSE 5% 250 ML IV SCH
[2024-04-13] MEDS ORDERED: guaiFENesin DM 200/20 MG-10 ML 10 ML UDC PO PRN (00:50)
[2024-04-13] MEDS ORDERED: ACETAMINOPHEN 325 MG TAB PO PRN (00:50)
[2024-04-13] MEDS ORDERED: POTASSIUM CHLORIDE 10 MEQ TABER PO PRN (00:50)
[2024-04-13] MEDS ORDERED: HYDROcodone/APAP 7.5/325 MG 1 TAB PO PRN (00:50)
[2024-04-13] MEDS ORDERED: DOCUSATE SODIUM 100 MG GELCAP PO PRN (00:50)
[2024-04-13] MEDS ORDERED: ONDANSETRON 4 MG/2 ML VIAL IM/IVP PRN (00:50)
[2024-04-13] MEDS: NACL 0.9% 1,000 ML IV SCH (01:10)
[2024-04-13 07:21] LABS: BASOPHILS % (AUTO) 0.8 % (0.0-2.0); EOSINOPHILS # (AUTO) 0.1 K/uL (0-0.4); EOSINOPHILS % (AUTO) 2.3 % (0.0-4.0); HEMATOCRIT 34.9 % (36-52); HEMOGLOBIN 11.8 g/dL (12.0-18.0); LYMPHOCYTES # (AUTO) 1.2 K/uL (2.0-11.5); LYMPHOCYTES % (AUTO) 27.1 % (20.5-51.1); MEAN CORPUSCULAR HEMOGLOBIN 37 pg (27-31); MEAN CORPUSCULAR HGB CONC 34 g/dL (33-37); MEAN CORPUSCULAR VOLUME 110.1 fL (80-94); MONOCYTES # (AUTO) 0.5 K/uL (0.8-1.0); MONOCYTES % (AUTO) 9.9 % (1.7-9.3); NEUTROPHILS # (AUTO) 2.7 K/uL (1.8-7.7); NEUTROPHILS % (AUTO) 59.9 % (42.2-75.2); PLATELET COUNT (AUTO) 161 K/uL (140-450); RED BLOOD CELL COUNT(AUTO) 3.17 MIL/uL (4.20-6.10); RED CELL DISTRIBUTION WIDTH 15.9 % (11.6-13.7); WHITE BLOOD COUNT (AUTO) 4.6 K/uL (4.8-10.8)
[2024-04-13 07:31] LABS: ALBUMIN 2.6 g/dL (3.4-5.0); ANION GAP 10.1 (8-16); CALCIUM 7.4 mg/dL (8.5-10.1); CARBON DIOXIDE 28.2 mmol/L (21-32); CREATININE 0.9 mg/dL (0.6-1.3); POTASSIUM 4.3 mmol/L (3.5-5.1); TOTAL BILIRUBIN 0.2 mg/dL (0.0-1.0); TOTAL PROTEIN, SERUM 6.1 g/dL (6.4-8.2)
[2024-04-13] MEDS: PANTOPRAZOLE 40 MG TABEC PO SCH (09:21)
[2024-04-13] MEDS: MIDODRINE 5 MG TAB GT SCH (21:00)
[2024-04-13] MEDS: levETIRAcetam 100 MG/ML ORASYR GT SCH (22:37)
[2024-04-13] MEDS: LORazepam 0.5 MG TAB GT PRN (22:38)
[2024-04-14] VITALS (10 sets, daily range): BP systolic 100–153; BP diastolic 52–97; PULSE 49–67; RESP 17–19; TEMP 96.7–98.5; O2SAT 95–100
[2024-04-14] MEDS: ZOLPIDEM 5 MG TAB PO PRN (02:58)
[2024-04-14] MEDS ORDERED: HALOPERIDOL IM 5 MG/ML VIAL IM SCH (03:20)
[2024-04-14] MEDS: LEVOTHYROXINE 0.1 MG TAB GT SCH (07:02)
[2024-04-14 08:24] LABS: BASOPHILS % (AUTO) 1.1 % (0.0-2.0); EOSINOPHILS # (AUTO) 0.2 K/uL (0-0.4); EOSINOPHILS % (AUTO) 6.4 % (0.0-4.0); HEMOGLOBIN 10.9 g/dL (12.0-18.0); LYMPHOCYTES % (AUTO) 39.5 % (20.5-51.1); MEAN CORPUSCULAR HEMOGLOBIN 37 pg (27-31); MEAN CORPUSCULAR HGB CONC 34 g/dL (33-37); MEAN CORPUSCULAR VOLUME 108.5 fL (80-94); MONOCYTES # (AUTO) 0.5 K/uL (0.8-1.0); NEUTROPHILS # (AUTO) 0.9 K/uL (1.8-7.7); PLATELET COUNT (AUTO) 159 K/uL (140-450); RED BLOOD CELL COUNT(AUTO) 2.95 MIL/uL (4.20-6.10); WHITE BLOOD COUNT (AUTO) 2.6 K/uL (4.8-10.8)
[2024-04-14 08:40] LABS: ALBUMIN 2.7 g/dL (3.4-5.0); ANION GAP 9.9 (8-16); CREATININE 0.7 mg/dL (0.6-1.3); POTASSIUM 3.9 mmol/L (3.5-5.1); TOTAL BILIRUBIN 0.3 mg/dL (0.0-1.0); TOTAL PROTEIN, SERUM 6.3 g/dL (6.4-8.2)
[2024-04-14] MEDS: FUROSEMIDE 40 MG/5 ML ORAL SOL UDC GT SCH (09:00)
[2024-04-14] MEDS: LOSARTAN 25 MG TAB PO SCH (09:00)
[2024-04-14] MEDS ORDERED: QUETIAPINE FUMARATE GT SCH (09:00)
[2024-04-14] MEDS: QUEtiapine FUMARATE 100 MG TAB GT SCH ×2 (09:01→21:21)
[2024-04-14] MEDS: ESCITALOPRAM 20 MG TAB GT SCH (09:01)
[2024-04-14] MEDS: MUPIROCIN CA NASAL 2% 1GM TUBE NS SCH (21:21)
[2024-04-14] MEDS: CHLORHEXADINE GLUC 2% CLOTH TP SCH (21:21)
[2024-04-15] VITALS: BP 125/56; PULSE 55; PULSE 62; RESP 20; TEMP 97.6; O2SAT 95
[2024-04-15 00:05] VITALS: O2SAT 97
[2024-04-15 04:00] VITALS: BP 133/65; PULSE 50; PULSE 52; RESP 20; TEMP 97.9; O2SAT 96
[2024-04-15 07:48] VITALS: O2SAT 98
[2024-04-15 08:00] VITALS: BP 163/63; PULSE 52; PULSE 53; PULSE 88; RESP 18; TEMP 98.6; O2SAT 98
[2024-04-15 08:44] LABS: BASOPHILS % (AUTO) 0.9 % (0.0-2.0); EOSINOPHILS # (AUTO) 0.1 K/uL (0-0.4); EOSINOPHILS % (AUTO) 5.1 % (0.0-4.0); HEMATOCRIT 36.2 % (36-52); HEMOGLOBIN 12.3 g/dL (12.0-18.0); LYMPHOCYTES # (AUTO) 1.4 K/uL (2.0-11.5); LYMPHOCYTES % (AUTO) 49.6 % (20.5-51.1); MEAN CORPUSCULAR HEMOGLOBIN 37 pg (27-31); MEAN CORPUSCULAR HGB CONC 34 g/dL (33-37); MEAN CORPUSCULAR VOLUME 109.6 fL (80-94); MONOCYTES # (AUTO) 0.5 K/uL (0.8-1.0); MONOCYTES % (AUTO) 19.3 % (1.7-9.3); NEUTROPHILS # (AUTO) 0.7 K/uL (1.8-7.7); NEUTROPHILS % (AUTO) 25.1 % (42.2-75.2); PLATELET COUNT (AUTO) 155 K/uL (140-450); RED CELL DISTRIBUTION WIDTH 15.8 % (11.6-13.7); WHITE BLOOD COUNT (AUTO) 2.8 K/uL (4.8-10.8)
[2024-04-15 08:58] LABS: ALBUMIN 2.8 g/dL (3.4-5.0); ANION GAP 10.2 (8-16); CALCIUM 8.5 mg/dL (8.5-10.1); CARBON DIOXIDE 27.4 mmol/L (21-32); CREATININE 0.8 mg/dL (0.6-1.3); POTASSIUM 4.6 mmol/L (3.5-5.1); TOTAL BILIRUBIN 0.2 mg/dL (0.0-1.0); TOTAL PROTEIN, SERUM 6.6 g/dL (6.4-8.2)
[2024-04-15] MEDS ORDERED: LEVO750T75 PO (11:41)
[2024-04-15 13:28] VITALS: BP 163/63; PULSE 88; RESP 18; TEMP 98.6
== END 2024-04-15 15:29 | disposition home or self-care (01) | DRG 177 ==
LOC: MED 21:01 → MTU 04-13 00:51
PROVIDERS: ADMIT Student in an Organized Health Care Education/Training Program; ATTEND Student in an Organized Health Care Education/Training Program
DX: J15.69 Pneumonia due to other Gram-negative bacteria (principal); J96.01 Acute respiratory failure with hypoxia; J44.0 Chronic obstructive pulmonary disease with (acute) lower respiratory infection; I95.9 Hypotension, unspecified; J15.9 Unspecified bacterial pneumonia; J69.0 Pneumonitis due to inhalation of food and vomit; Q90.9 Down syndrome, unspecified; K21.9 Gastro-esophageal reflux disease without esophagitis; Z79.51 Long term (current) use of inhaled steroids; Z79.899 Other long term (current) drug therapy; Z93.1 Gastrostomy status
CPT/HCPCS: 36415; 71045; 80048; 80053; 80076; 81003; 82550; 83605; 83880; 84484; 85025; 85610; 85730; 87040; 87070; 87081; 87086; 87205; 89220; 93005; 96365; 96368; 99291; J0456; J0696; J7060; Q0092